=== PATIENT | female | born 1955 | race Caucasian/White ===

== ENCOUNTER 2019-04-16 12:44 | Inpatient (IN) | payer OTHER, MEDICAID ==
[~2019-04-16] VITALS: Ht 152.4 cm; Wt 55.8 kg
[2019-04-16 12:44] VITALS: BP_SYST 137
--- NOTE | 2019-04-16 13:05 | NUR ---
Patient to ER bed 5 to gown for evaluation. Side rails up.
--- NOTE | 2019-04-16 13:06 | NUR ---
Pt sent from [facility] for evaluation of rash.Pt AAOx 2. Pt h/o CVA x 3 ,HTN,DM
--- NOTE | 2019-04-16 13:10 | NUR ---
Report received from JERRY Lucia.
[2019-04-16] MEDS: valACYclovir HCL 500 MG TABLET PO ONE ×2 (13:12→13:35)
[2019-04-16] MEDS: PREDNISONE 20 MG TABLET PO ONE ×2 (13:12→13:35)
[2019-04-16] MEDS: HYDROcodone/ACETAMIN 5-325 MG TAB (NORCO/ VICODIN) PO ONE ×2 (13:13→13:34)
--- NOTE | 2019-04-16 13:20 | NUR ---
Attempted to give patient PO medications. Per patient she is able to swallow pills whole with no crushing. Patient was unable to tolerate taking pills and drinking water. MD to bedside related to choking incident after attempting to swallow 1 pill. Patient AAOx2. Patient states yes when asked if she is feeling more weak than normal, but patient states no to confusion more than normal.
--- NOTE | 2019-04-16 13:23 | NUR ---
Patient transferred from [facility] to bed. Sitting upright at 90 degree angle.
[2019-04-16] MEDS ORDERED: ACYCLOVIR IV 750 MG in D5W 100 ML IV ONE (13:30)
[2019-04-16] MEDS ORDERED: NACL 0.9% 1,000 ML IV ONE (13:30)
[2019-04-16] MEDS ORDERED: methylPREDNISolone SOD SUCC 40 MG/ML VIAL IVP ONE (13:30)
[2019-04-16 13:45] LABS: BASOPHILS % (AUTO) 0.7 % (0.0-2.0); EOSINOPHILS % (AUTO) 0.1 % (0.0-4.0); HEMATOCRIT 46.6 % (36-48); LYMPHOCYTES # (AUTO) 1.4 K/uL (1.0-5.5); LYMPHOCYTES % (AUTO) 22.6 % (20.5-51.5); MEAN CORPUSCULAR HEMOGLOBIN 32 pg (27-31); MEAN CORPUSCULAR HGB CONC 34 % (32-36); MEAN CORPUSCULAR VOLUME 92 fL (79.0-98.0); MONOCYTES # (AUTO) 0.7 K/uL (0.0-1.0); MONOCYTES % (AUTO) 10.4 % (1.7-9.3); NEUTROPHILS # (AUTO) 4.1 K/uL (1.8-7.7); NEUTROPHILS % (AUTO) 66.2 % (40.0-70.0); PLATELET COUNT (AUTO) 155 K/uL (130-430); RED BLOOD CELL COUNT(AUTO) 5.09 MIL/uL (4.2-6.2); RED CELL DISTRIBUTION WIDTH 12.9 % (9.0-15.0); WHITE BLOOD COUNT (AUTO) 6.3 K/uL (4.8-10.8)
--- NOTE | 2019-04-16 13:47 | NUR ---
Pharmacy called regarding Valtrex order for IV administration, they are to mix. Will follow up regarding. Patient started on IVF and given solumedrol for pain control. Will continue to follow up and monitor. Patient placed on bus driver/monitor.
[2019-04-16 13:55] LABS: CALCIUM 8.9 mg/dL (8.4-11.0); CREATININE 0.55 mg/dL (0.55-1.30); POTASSIUM 4.1 mmol/L (3.5-5.1)
[2019-04-16 14:12] LABS: ALBUMIN 2.9 g/dL (3.4-4.8); TOTAL BILIRUBIN 0.3 mg/dL (0.0-1.0)
[2019-04-16] MEDS ORDERED: NS 500 ML IV ONE (14:15)
[2019-04-16] MEDS ORDERED: LIP40 GT (14:51)
[2019-04-16] MEDS ORDERED: CLOP75TA32 GT (14:51)
[2019-04-16] MEDS ORDERED: METO25TA6 GT (14:51)
[2019-04-16] MEDS ORDERED: MEMA5TAB GT (14:51)
[2019-04-16] MEDS ORDERED: INSU100V42 (14:51)
[2019-04-16] MEDS ORDERED: Insulin Glargine SQ ×2 (14:51)
--- NOTE | 2019-04-16 14:51 | NUR ---
Medication reconciliation completed with information provided by [facility]. Any prior medication reconciliation on file was reviewed and corrected.
--- NOTE | 2019-04-16 14:56 | NUR ---
Orders received from Dr. Monroe, entered by RN. Bed assignment received.
--- NOTE | 2019-04-16 14:57 | NUR ---
aPatient will be admitted to care of Dr. Monroe. Admitted to MedSurg unit. Will go to room 118. Summary report printed. Report will be given at bedside.
--- NOTE | 2019-04-16 15:06 | NUR ---
Patient to be admitted to room 115 r/t isolation precautions.
[2019-04-16 15:30] VITALS: BP_SYST 138
--- NOTE | 2019-04-16 15:30 | NUR ---
ADMIT NOTE Received pt from ER to the floor with a diagnosis of Shingles and dysphagia. Admission process initiated. patient oriented to pain management, safety and call light-teach back done.
--- NOTE | 2019-04-16 15:40 | NUR ---
opening note patient is resting in bed, able to state name and , daughter present, assessment completed, educated director of marketing operations light system and plan of care, patient said "okay" to me, airborne isolation precautions in place, Dr Monroe in room to assess patient, no signs of distress, no needs addressed at this time, fall/safety precautions in place.
[2019-04-16] MEDS ORDERED: HYDROcodone/ACETAMIN 5-325 MG TAB (NORCO/ VICODIN) PO PRN (16:00)
[2019-04-16] MEDS: NACL 0.9% 1,000 ML IV SCH (16:31)
--- NOTE | 2019-04-16 17:30 | NUR ---
blood sugar check and unasyn blood sugar check done and no sliding scale needed at this time, educated on medication use and side effects, patient stated "okay" to me, patient cleaned and changed after incontinence care, no other needs addressed at this time, fall/safety precautions in place.
[2019-04-16] MEDS: AMPICILLIN SODIUM/SULBACTAM NA 1.5 GM in NS 50 ML IV SCH ×2 (17:33→23:30)
--- NOTE | 2019-04-16 19:00 | NUR ---
closing note patient is resting in bed, able to state name and , airborne isolation precautions in place, no signs of distress, no needs addressed at this time, fall/safety precautions in place, IV fluids running, [facility] called and confirmed that patient got the flu vaccine on 03/31/19, will endorse report to noc shift nurse to continue with care, medications should be crushed and given with applesauce or water, pending UA/UC order with straight cath but patient has been refusing for straight cath, will ask manager shift nurse to ask patient again for this.
[2019-04-16 21:03] VITALS: BP_SYST 135
--- NOTE | 2019-04-16 22:15 | NUR ---
DIABETES BSG ACCU - CHECK 275 mg dl INSULIN COVERAGE ORDERED CONTINUE TO MONITOR .
[2019-04-16] MEDS: INSULIN GLARGINE 100 UNITS/ML 10 ML VIAL SQ SCH (22:45)
[2019-04-16] MEDS: INSULIN LISPRO SLIDING SCALE 100 UNITS/ML VIAL (humaLOG) SUBCUT PRN (22:46)
[2019-04-16] MEDS: ACYCLOVIR IV 750 MG in D5W 100 ML IV SCH (22:46)
[2019-04-16] MEDS: ATORVASTATIN 20 MG TABLET PO SCH (22:47)
[2019-04-16] MEDS: MEMANTINE HCL 5 MG TABLET PO SCH (22:47)
--- NOTE | 2019-04-17 | NUR ---
HOURLY ROUNDING PATIENT AWAKE ON AND OFF HOB ELEVATED ISOLATION PRECAUTIONS CONTINUED .
[2019-04-17 01:11] VITALS: BP_SYST 141
--- NOTE | 2019-04-17 02:25 | NUR ---
ISOLATION PRECAUTIONS AIRBORNE , PROCEDURES EXPLAINED PATIENT AWAKE FALL MEASURES IMPLEMENTED FOR SAFETY .
--- NOTE | 2019-04-17 02:28 | NUR ---
PATIENT INCONTINENT OF URINE LININ CHANGE NEEDED KEPT CLEAN ALSO DRY NEEDED & PRN .
--- NOTE | 2019-04-17 04:52 | NUR ---
Swallow/Oral Eval called Called and left a message for Azalia regarding swallow/oral eval, ordered by Dr. Monroe.
--- NOTE | 2019-04-17 06:04 | NUR ---
ZOVIRAX / UNASYN 1.5 GM IVPB ADMINISTER as ordered no adverse Reaction noted patient awake alert comfort measures implemented ISOLATION continued as ordered .
[2019-04-17] MEDS: AMPICILLIN SODIUM/SULBACTAM NA 1.5 GM in NS 50 ML IV SCH ×4 (06:27→23:52)
[2019-04-17] MEDS: ACYCLOVIR IV 750 MG in D5W 100 ML IV SCH ×3 (06:29→22:05)
[2019-04-17] MEDS: INSULIN LISPRO SLIDING SCALE 100 UNITS/ML VIAL (humaLOG) SUBCUT PRN ×3 (06:31→16:25)
--- NOTE | 2019-04-17 06:51 | NUR ---
Nutrition Update Guicho Scale 17 noted. Pt admitted for Shingles and Dysphagia Diet: Pureed BMI: 24.2 kg/m2 RD to follow per nutrition care standards.
[2019-04-17 07:51] VITALS: BP_SYST 152
--- NOTE | 2019-04-17 07:53 | NUR ---
AM rounds: Oriented x3. Denies any pain. Incontinent of bowel. Left ear and chin with redness and rashes from shingles. Maintained on Airborne isolation. Call light within raech. IV fluids of NS at 50 cc/hr on the right wrist gauge 20 intact and patent. Safety precautions in place, call light within reach.
[2019-04-17 08:18] LABS: BASOPHILS % (AUTO) 0.4 % (0.0-2.0); EOSINOPHILS % (AUTO) 0.1 % (0.0-4.0); HEMATOCRIT 45.5 % (36-48); HEMOGLOBIN 15.6 g/dL (12.0-16.0); LYMPHOCYTES # (AUTO) 2.2 K/uL (1.0-5.5); LYMPHOCYTES % (AUTO) 33.1 % (20.5-51.5); MEAN CORPUSCULAR HEMOGLOBIN 31 pg (27-31); MEAN CORPUSCULAR HGB CONC 34 % (32-36); MEAN CORPUSCULAR VOLUME 92 fL (79.0-98.0); MONOCYTES % (AUTO) 14.2 % (1.7-9.3); NEUTROPHILS # (AUTO) 3.5 K/uL (1.8-7.7); NEUTROPHILS % (AUTO) 52.2 % (40.0-70.0); PLATELET COUNT (AUTO) 166 K/uL (130-430); RED BLOOD CELL COUNT(AUTO) 4.95 MIL/uL (4.2-6.2); RED CELL DISTRIBUTION WIDTH 12.8 % (9.0-15.0); WHITE BLOOD COUNT (AUTO) 6.8 K/uL (4.8-10.8)
[2019-04-17] MEDS: MEMANTINE HCL 5 MG TABLET PO SCH ×2 (08:49→20:19)
[2019-04-17] MEDS: INSULIN GLARGINE 100 UNITS/ML 10 ML VIAL SQ SCH ×2 (08:49→20:34)
[2019-04-17] MEDS: CLOPIDOGREL BISULFATE 75 MG TABLET PO SCH (08:49)
[2019-04-17] MEDS: METOPROLOL TARTRATE 25 MG TABLET PO SCH (08:50)
[2019-04-17 08:52] LABS: CALCIUM 8.8 mg/dL (8.4-11.0); CREATININE 0.63 mg/dL (0.55-1.30); POTASSIUM 4.2 mmol/L (3.5-5.1)
[2019-04-17] MEDS: NACL 0.9% 1,000 ML IV SCH (11:12)
--- NOTE | 2019-04-17 11:20 | NUR ---
WOUND EVALUATION: Late note for 1120 secondary to patient care. Wound Consult received from Dr. Monroe. Thank you, Dr. Monroe, for the consult. Patient received in a [place] Bed with an Isoflex ZEB mattress, awake, alert, confused. Patient is unable to turn in bed independently. Guicho Score is a 15. Past Medical History: CVA, Dementia, history of multiple strokes, bedbound, Diabetes Mellitus, Hypertension, Hyperlipidemia. Recent Labs: WBC 6.8, RBC 4.95, hemoglobin 15.6, hematocrit 45.5, glucose 187, POC glucose 364, alkaline phosphatase 117, albumin 2.9. Microbiology: Blood culture results 2 in progress. MRSA screen results in progress. Intrinsic factors that delay wound healing: Diabetes Mellitus, Hypoalbuminemia. Extrinsic factors that delay wound healing: Decreased mobility. Wound Assessment: 1. Left Chin: Shingles lesion, present on admission. Site has 100% yellow crusty tissue. No odor, no drainage. Periwound intact. Lesion measures 0.6 cm x 0.5 cm. Recommend: Cleanse wound with normal saline. Apply SurePrep to oriana-wound. Cover with non-adhesive foam dressing, cut to size, then secure with transparent dressing (use same dressing as in wounds 2 and 3). Perform wound care daily, and as needed for dressing soiling or dislodgement. 2. Left Chin, inferior to wound 1: Shingles lesion, present on admission. Site has 90% yellow crusty tissue, 10% red tissue. No odor, no drainage. Periwound intact. Lesion measures 0.5 cm x 0.8 cm. 3. Left Chin, inferior to wound 2: Shingles lesion, present on admission. Site has 100% yellow crusty tissue. No odor, no drainage. Periwound intact. Lesion measures 0.7 cm x 1.5 cm. Recommend: Cleanse wounds with normal saline. Apply SurePrep to oriana-wounds. Apply Hydrogel to wounds. Cover with non-adhesive foam dressing, cut to size, then secure with transparent dressing. Perform wound care daily, and as needed for dressing soiling or dislodgement. 4. Left Ear, Madison/Scaphoid Fossa Intersection: Shingles lesion, present on admission. Site has 100% yellow crusty tissue. No odor, no drainage. Periwound intact. Ear is edematous. Lesion measures 3.0 cm x 1.5 cm. 5. Left Ear, Madison/Scaphoid Fossa Intersection: Shingles lesion, present on admission. Site has 100% yellow crusty tissue. No odor, no drainage. Periwound intact. Ear is edematous. Lesion measures 3.0 cm x 1.5 cm. 6. Left Ear, Acoustic Meatus: Shingles lesion, present on admission. Site has 100% yellow crusty tissue. No odor, no drainage. Periwound intact. Ear is edematous. Lesion measures 1.0 cm x 1.2 cm. Recommend: Cleanse wounds with normal saline. Apply SurePrep to oriana-wounds. Apply Hydrogel to wounds. Cover with non-adhesive foam dressing, cut to size, then secure with transparent dressing. Secure with Kendall wrap over ear and cranial area. Perform wound care daily, and as needed for dressing soiling or dislodgement. 7. Intersect of Left Parietal/Temporal Scalp, Superior to Ear: Multiple dry scaly lesions (probable Shingles), present on admission. No odor, no drainage. Recommend: No dressing needed. Continue to monitor site every shift. 8. Sacral/Buttocks areas: Multiple areas of scar tissue from a wound of prior unknown etiology, and blanchable erythema from IAD, present on admission. Recommend: Cleanse involved areas with mild soap and water. Pat dry. Apply moisture barrier cream to involved areas. Perform site care 4 times a day, and as needed for soiling. Also recommend: Encourage and assist patient as needed with repositioning [id number] only every 2 hours with pillow support and off-load pressure areas with pillows for pressure re-distribution. Offload, elevate and float bilateral heels with pillows. Perform skin care and monitor skin integrity Q shift. Use moisture barrier cream on buttocks and other moisture susceptible areas QID and as needed for soiling. Initiate low air-loss therapy.
--- NOTE | 2019-04-17 11:20 | NUR ---
Wound care consult: Seen by CASSY JARAMILLO. Wound care treatment initiated on the left chin/neck.
[2019-04-17 12:00] VITALS: BP_SYST 146
--- NOTE | 2019-04-17 13:43 | NUR ---
S.T. SWALLOW EVAL SWALLOW EVAL COMPLETED. PT PRESENTS W/ FUNCTIONAL OROPHARYNGEAL SWALLOW FOR PUREE AND THIN/THICK LIQUIDS W/ NO S/S OF ASPIRATION. REC: CONTINUE CURRENT PUREE DIET. THIN LIQUIDS OK. CRUSH MEDS. NURSE GABRIELA NOTIFIED. G8996 CK G8997 CK G8998 CK NOMS LEVEL 4
--- NOTE | 2019-04-17 14:40 | NUR ---
MD rounds: Seen by Dr. Bains, okayed to do straight cath for UA.
[2019-04-17 17:02] VITALS: BP_SYST 134
[2019-04-17 17:17] LABS: BILIRUBIN,URINE NEGATIVE (NEGATIVE); BLOOD, URINE 1+ (NEGATIVE); CLARITY/URINE CLOUDY (CLEAR); COLOR,URINE YELLOW (YELLOW); GLUCOSE,URINE 3+ (NEGATIVE); KETONES,URINE NEGATIVE (NEGATIVE); LEUKOCYTE ESTERASE ,URINE 2+ (NEGATIVE); NITRITE, URINE NEGATIVE (NEGATIVE); PH,URINE 6.5 (5.0-8.0); PROTEIN URINE NEGATIVE (NEGATIVE)
[2019-04-17 17:24] LABS: BACTERIA,URINE MODERATE /HPF (None Seen); RBC,URINE 50-80 /HPF (0-3)
[2019-04-17 17:25] LABS: MUCUS,URINE 1+ /LPF (None Seen); YEAST,URINE Many /HPF (None Seen)
--- NOTE | 2019-04-17 18:15 | NUR ---
END OF SHIFT: Needs attended. No change in assessment. Maintained on airborne and droplet isolation for shingles. Call light within reach.
--- NOTE | 2019-04-17 19:30 | NUR ---
initial notes: pt is on bed, watching tv. no pain. no sob, not distress. ivf infusing well. on airborne isolation due to shingles. call light in reach. side rails up. low bed position and alarm.
--- NOTE | 2019-04-17 20:00 | NUR ---
sleeping, stable. no breathing problem. no pain. not distress. ivf infusing well. maintained on airborne isolation. needs attended. call light in reach. safety on. will follow-up.
[2019-04-17] MEDS: ATORVASTATIN 20 MG TABLET PO SCH (20:19)
[2019-04-17 20:21] VITALS: BP_SYST 146
--- NOTE | 2019-04-17 20:30 | NUR ---
pt is being feed by trade manager Q, tolerating well. pt is vital sign are with in normal limit. blood sugar 118.
--- NOTE | 2019-04-17 21:00 | NUR ---
pt is incontinent of urine. pt void and soiled her linen. clean pt and change linen. pt tolerate well. instructed pt to use call light to call for assistance. pt demonstrate understanding. call light is in pt hand. needs attended. c bed alarm on. side rails up.
[2019-04-17 23:53] VITALS: BP_SYST 123
--- NOTE | 2019-04-18 00:07 | NUR ---
sleeping, comfortable.stable. no breathing problem. no pain. not distress. vital sign are with in normal limit and recorded. ivf infusing well. clean pt and chux change. maintained on airborne isolation. needs attended. call light in reach. safety on. will follow-up.
--- NOTE | 2019-04-18 01:53 | NUR ---
SWALLOW EVAL: SWALLOW EVALUATION CONSULT CALLED LEFT A MESSAGE IN JAYLON'S ANSWERING MACHINE NUMBER I CALLED [phone] Addendum: 04/18/19 at 0254 by Karli Thakur OR/ SWALLOW EVAL WAS COMPLETE YESTERDAY 04/17/19
--- NOTE | 2019-04-18 02:00 | NUR ---
notes: sleeping, comfortable. no breathing problem. stable. maintained on airborne isolation. call light in reach. side rails up. low bed position. will follow-up.
--- NOTE | 2019-04-18 03:00 | NUR ---
SWALLOW EVAL CANCELLED I CALLED JAYLON AT [phone] AT [phone] SWALLOW EVAL WAS COMPLETE YESTERDAY 04/17/19
--- NOTE | 2019-04-18 04:00 | NUR ---
sleeping, comfortable. no breathing problem. stable. maintained on airborne isolation. call light in reach. side rails up. low bed position. will follow-up.
[2019-04-18] MEDS: AMPICILLIN SODIUM/SULBACTAM NA 1.5 GM in NS 50 ML IV SCH ×3 (05:35→17:04)
--- NOTE | 2019-04-18 05:47 | NUR ---
sleeping, comfortable.pt wakes up when clean, change to new chux.no pain. no sob. stable. maintained on airborne isolation. call light in reach. side rails up. low bed position. will follow-up.
[2019-04-18] MEDS: ACYCLOVIR IV 750 MG in D5W 100 ML IV SCH ×3 (06:18→21:59)
[2019-04-18] MEDS: NACL 0.9% 1,000 ML IV SCH (06:18)
[2019-04-18 06:25] VITALS: BP_SYST 123
[2019-04-18] MEDS: INSULIN LISPRO SLIDING SCALE 100 UNITS/ML VIAL (humaLOG) SUBCUT PRN ×4 (06:25→22:18)
--- NOTE | 2019-04-18 06:45 | NUR ---
closing: pt is still resting, no pain, no sob, stable. clean and dry. needs attended the whole shift, call light in reach. safety on. maintained on isolation for shingles. will give bedside report to incoming am rn.
--- NOTE | 2019-04-18 07:30 | NUR ---
AM rounds: Patient is asleep, IV fluids of NS at 50 cc/hr infusing on the right wrist gauge 20. Maintained on airborne and contact isolation for shingles. Safety precautions observed. Call light within reach.
[2019-04-18] MEDS: MEMANTINE HCL 5 MG TABLET PO SCH ×2 (08:16→21:58)
[2019-04-18] MEDS: CLOPIDOGREL BISULFATE 75 MG TABLET PO SCH (08:16)
[2019-04-18] MEDS: METOPROLOL TARTRATE 25 MG TABLET PO SCH (08:16)
[2019-04-18] MEDS: INSULIN GLARGINE 100 UNITS/ML 10 ML VIAL SQ SCH ×2 (08:19→22:19)
--- NOTE | 2019-04-18 10:30 | NUR ---
Rounds: Patient is resting. Denies pain.
[2019-04-18 11:24] VITALS: BP_SYST 168
--- NOTE | 2019-04-18 12:30 | NUR ---
Lunch: Refused lunch, only the supplement.
[2019-04-18 14:18] VITALS: BP_SYST 142
--- NOTE | 2019-04-18 15:00 | NUR ---
Rounds: Denies pain. Call light within reach.
[2019-04-18 15:29] VITALS: BP_SYST 130
--- NOTE | 2019-04-18 16:11 | NUR ---
Dietitian Recommendations * Recommend pureed, CCHO low carb-45 gm diet with nectar thick liquids, Glucerna TID, Sampson BID (820 kcal/day and 35 gm protein/day) * Encourage PO and ONS/modular intakes LP, RD Please refer to Nutrition Assessment for details. Signed: 04/18/19 at 1612 by Thania DOMINGO <Co-Signature Required> Co-Signed: 04/18/19 at [address] Addendum: 04/18/19 at 1612 by Thania DOMINGO Amended: Links added.
--- NOTE | 2019-04-18 18:47 | NUR ---
End of shift: Needs attended. No change in assessment. Maintained of airborne/contact isolation for shingles.
[2019-04-18 20:00] VITALS: BP_SYST 141
--- NOTE | 2019-04-18 20:00 | NUR ---
OPENING NOTES Received patient, eyes open, states 0/10 pain at this time. No signs of acute respiratory distress observed, HOB elevated. IVF running to Right wrist, patent, dressings c/d/i. Airborne precautions in place. Call light on, bed alarm on, bed at lowest position. Air mattress on. Will continue to monitor.
[2019-04-18] MEDS: ATORVASTATIN 20 MG TABLET PO SCH (21:58)
--- NOTE | 2019-04-18 22:00 | NUR ---
Patient provided with PO medications, patient tolerated well. Blood sugar of 160 and insulin coverage provided per protocol with Lantus as ordered. IV medication hung. Patient has supplemental ensure and juice and water. Perineal care provided. Will continue to monitor.
[2019-04-19] VITALS: BP_SYST 141
--- NOTE | 2019-04-19 00:05 | NUR ---
Patient provided with IV medication and drinks some more water. Provided patient with blankets and patient is turned. Will continue to monitor.
[2019-04-19] MEDS: AMPICILLIN SODIUM/SULBACTAM NA 1.5 GM in NS 50 ML IV SCH ×4 (00:12→17:27)
--- NOTE | 2019-04-19 02:15 | NUR ---
Patient resting in bed, eyes closed. No signs of acute respiratory distress. Safety precautions in place. Will continue to monitor.
--- NOTE | 2019-04-19 04:15 | NUR ---
Patient is resting, no signs of acute respiratory distress. Wound care provided. SCDs on. Perineal care provided. Call light within reach, bed alarm on, and bed at lowest position. Will continue to monitor.
[2019-04-19] MEDS: NACL 0.9% 1,000 ML IV SCH (05:48)
[2019-04-19] MEDS: ACYCLOVIR IV 750 MG in D5W 100 ML IV SCH ×3 (05:49→21:45)
--- NOTE | 2019-04-19 06:54 | NUR ---
SPOKE TO DR. MARTINEZ. DR. MARTINEZ SAYS TO HOLD OFF ON FLU SHOT FOR NOW. Will endorse care to oncoming shift.
--- NOTE | 2019-04-19 07:20 | NUR ---
CLOSING NOTES Patient is asleep, eyes closed. No signs of respiratory distress. IVF running, dressings c/d/i. Endorsed care to JERRY Sheridan. Bed alarm on, call light within reach, bed at lowest position. All needs met throughout shift.
--- NOTE | 2019-04-19 07:26 | NUR ---
Opening Note received bedside SBAR report from cook night RN, patient resting in bed, respirations even and unlabored on room air, no acute distress noted, patient reports pain is controlled, educated patient on use of call light and asked to call for assistance, patient verbalized understanding, call light in reach, bed in low and locked position, bed alarm on, isolation precautions in place.
[2019-04-19 08:00] VITALS: BP_SYST 115
[2019-04-19] MEDS: MEMANTINE HCL 5 MG TABLET PO SCH ×2 (08:34→21:42)
[2019-04-19] MEDS: CLOPIDOGREL BISULFATE 75 MG TABLET PO SCH (08:34)
[2019-04-19] MEDS: METOPROLOL TARTRATE 25 MG TABLET PO SCH (08:34)
[2019-04-19] MEDS: INSULIN GLARGINE 100 UNITS/ML 10 ML VIAL SQ SCH ×2 (08:37→21:52)
--- NOTE | 2019-04-19 09:57 | NUR ---
RN Rounds patient resting in bed, respirations even and unlabored on room air, no acute distress noted, patient reports pain is controlled, isolation precautions in place.
[2019-04-19] MEDS: INSULIN LISPRO SLIDING SCALE 100 UNITS/ML VIAL (humaLOG) SUBCUT PRN ×3 (11:18→21:53)
--- NOTE | 2019-04-19 12:16 | NUR ---
RN Rounds patient resting in bed, respirations even and unlabored on room air, patient denies any pain or nausea, no acute distress noted, isolation precautions in place.
[2019-04-19 12:50] VITALS: BP_SYST 119
--- NOTE | 2019-04-19 14:08 | NUR ---
Wound Care educated patient on purpose and procedure for wound care, patient verbalized understanding, wound care completed, patient tolerated well, patient denies any pain during or after wound care, see MST shift assessment for wound care.
--- NOTE | 2019-04-19 16:04 | NUR ---
RN Rounds patient resting in bed, respirations even and unlabored on room air, patient denies any pain, no acute distress noted.
[2019-04-19 16:57] VITALS: BP_SYST 138
--- NOTE | 2019-04-19 18:05 | NUR ---
RN Rounds patient sitting up in bed eating dinner with assistance, tolerating well, patient denies any nausea.
--- NOTE | 2019-04-19 19:19 | NUR ---
Closing Note bedside SBAR report given to receiving RN, patient resting in bed, respirations even and unlabored on room air, patient denies any pain, no acute distress noted, educated patient on use of bed alarm and asked to call for assistance, patient verbalized understanding, call light in reach, bed in low and locked position, bed alarm on, isolation precautions in place, care endorsed to maintenance mechanic 2nd shift RN.
--- NOTE | 2019-04-19 20:15 | NUR ---
PM SHIFT ASSESSMENT Received patient lying in bed, on room air, vital signs stable, no facial grimacing noted for pain, IV line intact and patent, and IVF infusing, patient repositioned and turned with pillows support, incontinence care provided, fall and isolation precautions maintained, will monitor.
[2019-04-19 20:30] VITALS: BP_SYST 145
[2019-04-19] MEDS: ATORVASTATIN 20 MG TABLET PO SCH (21:42)
--- NOTE | 2019-04-19 22:30 | NUR ---
RN ROUNDS Patient awake, resting quietly in bed, due medications administered, crushed and given with applesauce, due antibiotics administered, IV line to right wrist intact and patent, blood sugar check this pm of 256, covered with insulin per md order, patient repositioned and turned, airborne isolation precautions maintained, call light within patient's reach, fall and safety measures in place.
[2019-04-20] MEDS: NACL 0.9% 1,000 ML IV SCH ×2 (00:04→21:50)
[2019-04-20] MEDS: AMPICILLIN SODIUM/SULBACTAM NA 1.5 GM in NS 50 ML IV SCH ×3 (00:05→11:21)
--- NOTE | 2019-04-20 00:31 | NUR ---
RN ROUNDS Patient awake, resting quietly in bed, due antibiotic medications administered, patient repositioned and turned with pillow support, vital signs stable, airborne isolation precautions maintained, call light within patient's reach, fall and safety measures in place.
[2019-04-20 00:32] VITALS: BP_SYST 148
--- NOTE | 2019-04-20 02:15 | NUR ---
RN ROUNDS Patient resting quietly, in no distress, repositioned and turned with pillow support, IVf continue to infuse, isolation precautions maintained, call light within patient's reach, fall and safety measures in place.
--- NOTE | 2019-04-20 04:33 | NUR ---
RN ROUNDS Patient asleep, breathing is even and unlabored, repositioned and turned with pillow support, airborne isolation precautions maintained, call light within patient's reach, fall and safety measures in place.
[2019-04-20] MEDS: ACYCLOVIR IV 750 MG in D5W 100 ML IV SCH ×3 (05:17→21:49)
--- NOTE | 2019-04-20 06:20 | NUR ---
RN ROUNDS Patient awake, resting quietly in bed, due antibiotics administered, IV line to right wrist intact and patent, blood sugar check this am of 137, no insulin coverage needed, patient repositioned and turned, incontinence care provided, fall and isolation precautions maintained, call light within patient's reach, will monitor until report given to am nurse.
--- NOTE | 2019-04-20 07:19 | NUR ---
Opening Note received bedside SBAR report from occasional babysitter RN, patient resting in bed, respirations even and unlabored on room air, patient denies any pain, no acute distress noted, educated patient on use of call light and asked to call for assistance, patient verbalized understanding, call light in reach, bed in low and locked position, bed alarm on, isolation precautions in place.
[2019-04-20 08:00] VITALS: BP_SYST 149
[2019-04-20] MEDS: CLOPIDOGREL BISULFATE 75 MG TABLET PO SCH (08:25)
[2019-04-20] MEDS: MEMANTINE HCL 5 MG TABLET PO SCH ×2 (08:25→21:51)
[2019-04-20] MEDS: METOPROLOL TARTRATE 25 MG TABLET PO SCH (08:27)
[2019-04-20] MEDS: INSULIN GLARGINE 100 UNITS/ML 10 ML VIAL SQ SCH ×2 (08:28→21:57)
--- NOTE | 2019-04-20 09:40 | NUR ---
RN Rounds patient resting in bed, respirations even and unlabored on room air, patient denies any pain, no acute distress noted.
[2019-04-20] MEDS: INSULIN LISPRO SLIDING SCALE 100 UNITS/ML VIAL (humaLOG) SUBCUT PRN ×2 (11:20→17:15)
--- NOTE | 2019-04-20 11:48 | NUR ---
RN Rounds patient resting in bed, patient denies any pain, call light within reach, telephone within reach, demonstrated to patient how to answer telephone per her daughters request, patient returned demonstration.
[2019-04-20 12:45] VITALS: BP_SYST 144
--- NOTE | 2019-04-20 13:46 | NUR ---
RN Rounds patient resting in bed, patient denies any pain, IV fluid infusing well, no redness or swelling noted at IV site, no acute distress noted.
--- NOTE | 2019-04-20 15:21 | NUR ---
RN Rounds patient resting in bed, no acute distress noted, respirations even and unlabored on room air, patient denies any pain.
[2019-04-20 16:45] VITALS: BP_SYST 129
[2019-04-20] MEDS: SULBACTAM NA IV SCH (17:13)
[2019-04-20] MEDS: NS IV SCH (17:13)
[2019-04-20] MEDS: AMPICILLIN SODIUM IV SCH (17:13)
--- NOTE | 2019-04-20 17:37 | NUR ---
RN Rounds patient resting in bed, patient denies any pain, no acute distress noted, IV fluids infusing well, no redness or swelling noted at IV site.
--- NOTE | 2019-04-20 19:19 | NUR ---
Closing Note bedside SBAR report given to receiving RN, patient resting in bed, respirations even and unlabored on room air, no acute distress noted, educated patient on use of call light and asked to call for assistance, patient verbalized understanding, call light in reach, bed in low and locked position, bed alarm on, isolation precautions in place, care endorsed to mine shifter RN.
--- NOTE | 2019-04-20 19:41 | NUR ---
OPENING NOTES Pt and endorsement received from day shift nurse. Pt is resting in bed with both eyes closed, with visible chest rise and fall with non-labored breathing noted. Pt on IVF of NS at 50ml/hr and infusing well on right wrist G20. Pt moaning or grimacing noted. No signs of acute distress or SOB noted. Safety precautions in place with 3 side rails up, wheels locked, bed alarm on and in lowest level. Call light with pt. Will continue to monitor.
--- NOTE | 2019-04-20 19:50 | NUR ---
TRANSFER OF CARE Endorsed to JERRY Grover for continuity of care.
[2019-04-20 20:34] VITALS: BP_SYST 131
--- NOTE | 2019-04-20 21:00 | NUR ---
ISOLATION MEASURES INPLACE PROCEDURES EXPLAINED HISTORY OF SHINGLES & DYSPHAGIA ALSO DIABETES BSG 134 mg dl patient is a FEEDER .
[2019-04-20] MEDS: ATORVASTATIN 20 MG TABLET PO SCH (21:51)
--- NOTE | 2019-04-20 22:35 | NUR ---
HOURLY ROUNDING PATIENT AWAKE HOB ELEVATED IS VERBALLY RESPONSIVE BED ALARM ON Frequent monitor for safety FALL measures inplace .
--- NOTE | 2019-04-20 22:39 | NUR ---
ZOVIRAX 750 MG IVPB administer as ORDERED RASH ON EARS NECK also face areas noted R/T DIAGNOSIS .
[2019-04-21] MEDS: AMPICILLIN SODIUM IV SCH ×4 (00:41→17:07)
[2019-04-21] MEDS: NS IV SCH ×4 (00:41→17:07)
[2019-04-21] MEDS: SULBACTAM NA IV SCH ×4 (00:41→17:07)
[2019-04-21 01:05] VITALS: BP_SYST 141
--- NOTE | 2019-04-21 03:37 | NUR ---
HOURLY ROUNDING PATIENT RESTING SAFETY MEASURES implemented patient awake on and off FALL PRECAUTIONS FREQUENT VISUAL MONITOR BED TO LOW POSITION .
[2019-04-21] MEDS: ACYCLOVIR IV 750 MG in D5W 100 ML IV SCH ×3 (05:59→21:44)
[2019-04-21] MEDS ORDERED: DEXTROSE 50% JECT 50 ML DISP.SYRIN IVP ONE (06:15)
[2019-04-21] MEDS ORDERED: D5W 1,000 ML IV PRN (06:16)
[2019-04-21] MEDS ORDERED: DEXTROSE 50% JECT 50 ML DISP.SYRIN ONE (06:24)
--- NOTE | 2019-04-21 06:26 | NUR ---
HYPOGLYCEMIC PROTOCOL STARTED ONE - AMP OF D50 ADMINISTER FOR BSG OF 49 mg dl , PHONED PAGED DR MARILIN FULTON FOR UPDATE .
[2019-04-21] MEDS ORDERED: GLUCOSE 15 GM GEL (in 37.5 GM TUBE) PO PRN (06:30)
--- NOTE | 2019-04-21 06:47 | NUR ---
RECHECK BSG 211 mg dl CALL BACK STILL PENDING FOR MD DR GASTON FOR UPDATE .
--- NOTE | 2019-04-21 06:48 | NUR ---
PAGED PAGED LANDERSSHIN AT [phone] SPOKE WITH ARIEL.
--- NOTE | 2019-04-21 08:00 | NUR ---
Note Pt asssited in sitting up in bed and being fed her breakfast by SUMMER [employer]. Pt denies any SOB/resp distress or pain/discomfort at this time. IV in right wrist intact and patent at this time. Pt maintained with airborne precautions. Call light within reach.
[2019-04-21 08:15] VITALS: BP_SYST 151
[2019-04-21] MEDS: MEMANTINE HCL 5 MG TABLET PO SCH ×2 (08:17→21:29)
[2019-04-21] MEDS: CLOPIDOGREL BISULFATE 75 MG TABLET PO SCH (08:17)
[2019-04-21] MEDS: METOPROLOL TARTRATE 25 MG TABLET PO SCH (08:17)
[2019-04-21] MEDS: INSULIN GLARGINE 100 UNITS/ML 10 ML VIAL SQ SCH ×2 (09:13→21:32)
--- NOTE | 2019-04-21 11:20 | NUR ---
Note Pt denies any needs or pain/SOB at this time. IVF's and IVPB infusing well at this time through right wrist IV site. Call light within reach.
[2019-04-21 11:25] VITALS: BP_SYST 156
[2019-04-21] MEDS: INSULIN LISPRO SLIDING SCALE 100 UNITS/ML VIAL (humaLOG) SUBCUT PRN ×2 (11:36→21:36)
--- NOTE | 2019-04-21 13:40 | NUR ---
Note Pt resting in bed. Denies any pain/resp distress or needs at this time. Call light within reach.
[2019-04-21 15:24] VITALS: BP_SYST 160
[2019-04-21] MEDS: NACL 0.9% 1,000 ML IV SCH (17:08)
--- NOTE | 2019-04-21 18:15 | NUR ---
Note Pt has been checked on q1' and PRN all shift for needs and care. Pt was maintained with airborne isolation precautions all shift. No SOB/resp distress or pain/discomfort was noted all shift. IV in right wrist intact and patent infusing IVF's well all shift. No needs noted at this time. Call light within reach.
--- NOTE | 2019-04-21 19:35 | NUR ---
ROUNDS PATIENT RESTING COMFORTABLY IN BED, NOT IN DISTRESS, VITALS STABLE, NO PAIN AND DISCOMFORT NOTED. ASSESSMENT DONE AND DOCUMENTED. SEE FLOWSHEET. SAFETY AND FALL MEASURES IN PLACED. CALL LIGHT PLACED WITHIN REACH.
[2019-04-21 19:47] VITALS: BP_SYST 157
--- NOTE | 2019-04-21 21:10 | NUR ---
MEDICATION DUE MEDICATIONS GIVEN ORDERED, TOLERATED WELL. WILL CONTINUE TO MONITOR.
[2019-04-21] MEDS: ATORVASTATIN 20 MG TABLET PO SCH (21:29)
[2019-04-21] MEDS: METOPROLOL TARTRATE 50 MG TABLET PO SCH (21:30)
--- NOTE | 2019-04-22 00:12 | NUR ---
PATIENT RESTING: Patient resting quietly. No acute distress noted. Vital signs within normal range.
[2019-04-22] MEDS: SULBACTAM NA IV SCH ×5 (00:17→23:38)
[2019-04-22] MEDS: AMPICILLIN SODIUM IV SCH ×5 (00:17→23:38)
[2019-04-22] MEDS: NS IV SCH ×5 (00:17→23:38)
[2019-04-22 00:26] VITALS: BP_SYST 146
--- NOTE | 2019-04-22 02:13 | NUR ---
ROUNDS PATIENT ASLEEP, RESPIRATIONS EVEN AND UNLABORED, WILL CONTINUE TO MONITOR.
--- NOTE | 2019-04-22 04:13 | NUR ---
PATIENT RESTING: Patient resting quietly. No acute distress noted. Vital signs within normal range.
[2019-04-22] MEDS: ACYCLOVIR IV 750 MG in D5W 100 ML IV SCH ×3 (05:25→21:11)
--- NOTE | 2019-04-22 06:56 | NUR ---
CLOSING NOTES PATIENT AWAKE, VITALS STABLE, NO COMPLAINTS AT THIS TIME. ALL NEEDS ATTENDED TO. SAFETY AND FALL MEASURES MAINTAINED. CALL LIGHT PLACED WITHIN REACH.
[2019-04-22 08:00] VITALS: BP_SYST 147
--- NOTE | 2019-04-22 08:00 | NUR ---
INITIAL NOTE BEDSIDE REPORT RECEIVED BY OTR VAN CDL TRUCK DRIVER RN. PT RESTING IN BED, NO ACUTE DISTRESS NOTED, BREATHING EVEN AND UNLABORED. IVF INFUSING WELL. CALL LIGHT WITHIN REACH, BED IN LOW AND LOCKED POSITION WITH BED ALARM ON.
[2019-04-22] MEDS: MEMANTINE HCL 5 MG TABLET PO SCH ×2 (09:16→21:11)
[2019-04-22] MEDS: METOPROLOL TARTRATE 50 MG TABLET PO SCH ×2 (09:17→21:12)
[2019-04-22] MEDS: CLOPIDOGREL BISULFATE 75 MG TABLET PO SCH (09:17)
[2019-04-22] MEDS: INSULIN GLARGINE 100 UNITS/ML 10 ML VIAL SQ SCH ×2 (09:18→21:24)
[2019-04-22] MEDS: NACL 0.9% 1,000 ML IV SCH (09:19)
--- NOTE | 2019-04-22 10:00 | NUR ---
RN ROUNDS PT RESTING IN BED, DENIES ANY PAIN OR DISCOMFORT. ASSISTED WITH ORAL INTAKE OF WATER. PATIENT TOLERATED WELL.
[2019-04-22 11:33] VITALS: BP_SYST 146
[2019-04-22] MEDS: INSULIN LISPRO SLIDING SCALE 100 UNITS/ML VIAL (humaLOG) SUBCUT PRN ×2 (11:37→17:35)
--- NOTE | 2019-04-22 11:55 | NUR ---
RN ROUNDS PATIENT AWAKE, DENIES ANY PAIN OR DISCOMFORT, REPOSITIONED HOB FOR COMFORT.
--- NOTE | 2019-04-22 13:55 | NUR ---
RN ROUND PATIENT AWAKE. ASSISTED WITH ORAL INTAKE OF WATER AND APPLE SAUCE, PATIENT TOLERATED WELL.
[2019-04-22 15:27] VITALS: BP_SYST 128
--- NOTE | 2019-04-22 15:55 | NUR ---
RN ROUNDS PT RESTING, NO ACUTE DISTRESS NOTED, BREATHING EVEN AND UNLABORED.
--- NOTE | 2019-04-22 16:28 | NUR ---
Case mgt: Reviewed case for LOS--pt remains in droplet isolation for shingles--pt resides at [facility] long-term--will f/u for dc planning back to [place]--JOHN EDWARDS Addendum: 04/22/19 at 1630 by Tiara Corona RN Daniel referral to [facility]
--- NOTE | 2019-04-22 16:38 | NUR ---
[facility] REPORT GIVEN TO JERRY MCKINLEY FROM [facility]. JERRY INFORMED PATIENT WILL BE PICKED UP BY [facility] AT 1800. Addendum: 04/22/19 at 1818 by Eve Moreno RN DISREGARD, WRONG PT ENTRY
--- NOTE | 2019-04-22 17:55 | NUR ---
RN ROUNDS PT INCONTINENT OF URINE. CHANGED PATIENT, REPOSITIONED FOR COMFORT. PT TOLERATED WELL.
--- NOTE | 2019-04-22 18:09 | NUR ---
[facility] SPOKE WITH JERRY MCKINLEY. INFORMED RN THAT PATIENT DOLLY WAS DISCHARGED AND AMBULANCE MIDDLE STITCHER TIME HAS MOVED TO 1899. Addendum: 04/22/19 at 1818 by Eve Moreno RN DISREGARD, WRONG PT ENTRY
--- NOTE | 2019-04-22 19:28 | NUR ---
CLOSING NOTE BEDSIDE SBAR REPORT GIVEN TO RECEIVING RN. PT RESTING IN BED. NO ACUTE DISTRESS NOTED. BREATHING EVEN AND UNLABORED. IVF INFUSING WELL. CALL LIGHT WITHIN REACH, BED IN LOW AND LOCKED POSITION WITH BED ALARM ON. AIRBORNE PRECAUTIONS IN PLACE. PT CARE ENDORSED TO C CONSULTANT RN.
--- NOTE | 2019-04-22 19:35 | NUR ---
ROUNDS PATIENT RESTING COMFORTABLY IN BED, NOT IN DISTRESS, VITALS STABLE, NO PAIN AND DISCOMFORT NOTED. ASSESSMENT DONE AND DOCUMENTED. SEE FLOWSHEET. NEEDS ATTENDED TO. SAFETY AND FALL MEASURES IN PLACED. BED IN LOW AND LOCKED POSITION. CALL LIGHT PLACED WITHIN REACH.
[2019-04-22] MEDS: ATORVASTATIN 20 MG TABLET PO SCH (21:11)
--- NOTE | 2019-04-22 21:14 | NUR ---
MEDICATIONS DUE MEDICATIONS GIVEN SCHEDULED, TOLERATED WELL. WILL CONTINUE TO MONITOR.
--- NOTE | 2019-04-23 00:13 | NUR ---
PATIENT RESTING: Patient resting quietly. No acute distress noted. Vital signs within normal range.
--- NOTE | 2019-04-23 02:13 | NUR ---
ROUNDS PATIENT ASLEEP, NO SIGNS OF ANY PAIN AND DISCOMFORT NOTED, WILL CONTINUE TO MONITOR.
[2019-04-23 03:34] VITALS: BP_SYST 138
--- NOTE | 2019-04-23 04:16 | NUR ---
PATIENT RESTING: Patient resting quietly. No acute distress noted. Vital signs within normal range.
[2019-04-23] MEDS: ACYCLOVIR IV 750 MG in D5W 100 ML IV SCH (05:38)
[2019-04-23] MEDS: NS IV SCH ×4 (06:36→23:26)
[2019-04-23] MEDS: SULBACTAM NA IV SCH ×4 (06:36→23:26)
[2019-04-23] MEDS: AMPICILLIN SODIUM IV SCH ×4 (06:36→23:26)
--- NOTE | 2019-04-23 06:45 | NUR ---
CLOSING NOTES PATIENT AWAKE, VITALS STABLE, NO PAIN AT THIS TIME. ACCU CHECK DONE, BLOOD SUGAR 113, NO INSULIN COVERAGE. ALL NEEDS ATTENDED TO. WILL ENDORSE TO INCOMING SHIFT NURSE.
[2019-04-23 08:00] VITALS: BP_SYST 154
--- NOTE | 2019-04-23 08:00 | NUR ---
RN OPENING NOTE patient is resting in bed. open eyes but non verbal. patient was assessed, vital signs are stable.. IVF is running as prescribed, will continue to monitor and will pass the med , bed at low position and call light within reach bed alarm is on
[2019-04-23] MEDS: INSULIN GLARGINE 100 UNITS/ML 10 ML VIAL SQ SCH ×2 (09:30→22:32)
[2019-04-23] MEDS: CLOPIDOGREL BISULFATE 75 MG TABLET PO SCH (09:30)
[2019-04-23] MEDS: MEMANTINE HCL 5 MG TABLET PO SCH ×2 (09:30→21:34)
[2019-04-23] MEDS: METOPROLOL TARTRATE 50 MG TABLET PO SCH ×2 (09:35→21:34)
[2019-04-23] MEDS: NACL 0.9% 1,000 ML IV SCH (09:36)
--- NOTE | 2019-04-23 10:00 | NUR ---
RN NOTE PATIENT WAS REPOSITIONED AND GIVEN HER MEDICATION AND FED HER BREAKFAST
[2019-04-23 12:00] VITALS: BP_SYST 133
--- NOTE | 2019-04-23 12:00 | NUR ---
RN NOTE PATIENT WAS REPOSITIONED, BED AT LOW POSITION AND CALL LIGHT WITHIN REACH, PATIENT WAS COVERED FOR HER BLOOD SUGAR READING.
[2019-04-23] MEDS: INSULIN LISPRO SLIDING SCALE 100 UNITS/ML VIAL (humaLOG) SUBCUT PRN ×3 (13:01→22:33)
--- NOTE | 2019-04-23 14:00 | NUR ---
RN NOTE PATIENT IS RESTING IN BED, DENIES PAIN OR DISCOMFORT. WAS REPOSITIONED ,WILL CONTINUE TO MONITOR.
--- NOTE | 2019-04-23 16:00 | NUR ---
RN NOTE PATIENT WAS REPOSITIONED. PATIENT DENIES PAIN OR DISCOMFORT. WILL CONTINUE TO MONITOR.
[2019-04-23 16:56] VITALS: BP_SYST 144
--- NOTE | 2019-04-23 18:00 | NUR ---
RN CLOSING NOTE PATIENT IS RESTING IN BED, REPOSITIONED. GIVEN BLOOD SUGAR COVERAGE WITH LISPRO. WILL CONTINUE TO MONITOR AND WILL ENDORSE TO NEXT SHIFT.
--- NOTE | 2019-04-23 18:05 | NUR ---
Nutrition F/U (short-note d/t lack of time) RD reviewed pt's current EMR including diet Hx, physician notes, nursing notes, pertinent labs/meds/procedures, care trends, and care activity. Per RN, pt has been tolerating diet well, ate well at both breakfast and lunch. Current diet remains appropriate. F/U moderate risk within 3-5 days.
--- NOTE | 2019-04-23 19:35 | NUR ---
ROUNDS PATIENT RESTING COMFORTABLY IN BED, VITALS STABLE, NO PAIN AND DISCOMFORT NOTED. ASSESSMENT DONE AND DOCUMENTED. SEE FLOWSHEET. NEEDS ATTENDED TO. SAFETY AND FALL MEASURES IN PLACED. BED IN LOW AND LOCKED POSITION. CALL LIGHT PLACED WITHIN REACH.
--- NOTE | 2019-04-23 21:06 | NUR ---
MEDICATION DUE MEDICATIONS GIVEN SCHEDULED, CRUSHED WITH APPLESAUCE, TOLERATED WELL. WILL CONTINUE TO MONITOR.
[2019-04-23] MEDS: ATORVASTATIN 20 MG TABLET PO SCH (21:35)
--- NOTE | 2019-04-24 00:12 | NUR ---
PATIENT RESTING: Patient resting quietly. No acute distress noted. Vital signs within normal range.
[2019-04-24 00:34] VITALS: BP_SYST 136
--- NOTE | 2019-04-24 02:14 | NUR ---
ROUNDS PATIENT ASLEEP, RESPIRATIONS EVEN AND UNLABORED, WILL CONTINUE TO MONITOR.
[2019-04-24] MEDS: NACL 0.9% 1,000 ML IV SCH ×2 (03:45→09:34)
--- NOTE | 2019-04-24 04:15 | NUR ---
ROUNDS PATIENT ASLEEP, NO SOB NOR PAIN AND DISCOMFORT NOTED, WILL CONTINUE TO MONITOR.
[2019-04-24] MEDS: NS IV SCH ×3 (05:31→17:18)
[2019-04-24] MEDS: AMPICILLIN SODIUM IV SCH ×3 (05:31→17:18)
[2019-04-24] MEDS: SULBACTAM NA IV SCH ×3 (05:31→17:18)
--- NOTE | 2019-04-24 06:06 | NUR ---
CLOSING NOTES PATIENT AWAKE, VITALS STABLE, NO SIGNS OF ANY PAIN AND DISCOMFORT NOTED. ALL NEEDS ATTENDED TO. SAFETY MEASURES MAINTAINED. CALL LIGHT PLACED WITHIN REACH.
--- NOTE | 2019-04-24 07:55 | NUR ---
INITIAL NOTE RECEIVED PT IN BED, NO S/S OF DISTRESS OR SOB NOTED, PT HAS NO C/O PAIN AT THIS TIME, PT IN STABLE CONDITION, PT AAOX2, VERBAL, PROVIDED PT WITH REALITY ORIENTATION. IV CATHETER PATENT, RUNNING IV FLUIDS ORDERED, NO SIGNS OF INFECTION OR INFILTRATION NOTED. BED AT LOWEST POSITION, CALL LIGHT WITHIN REACH, WILL CONTINUE TO MONITOR PT FOR ANY CHANGES, FALL, AIRBORNE AND SAFETY PRECAUTIONS IN PLACE. PT IS ON AN AIR MATTRESS, PT HAS BILATERAL SCD'S IN PLACE.
[2019-04-24 08:30] VITALS: BP_SYST 124
[2019-04-24] MEDS: MEMANTINE HCL 5 MG TABLET PO SCH ×2 (09:28→20:28)
[2019-04-24] MEDS: CLOPIDOGREL BISULFATE 75 MG TABLET PO SCH (09:28)
[2019-04-24] MEDS: METOPROLOL TARTRATE 50 MG TABLET PO SCH ×2 (09:29→20:30)
[2019-04-24] MEDS: INSULIN GLARGINE 100 UNITS/ML 10 ML VIAL SQ SCH ×2 (09:31→20:33)
--- NOTE | 2019-04-24 10:20 | NUR ---
ROUNDS PT IN BED, NO S/S OF DISTRESS OR SOB NOTED, PT HAS NO C/O PAIN AT THIS TIME, PT IN STABLE CONDITION, PT RESTING COMFORTABLY, WILL CONTINUE TO MONITOR PT FOR ANY CHANGES.
[2019-04-24] MEDS: INSULIN LISPRO SLIDING SCALE 100 UNITS/ML VIAL (humaLOG) SUBCUT PRN ×2 (11:45→17:19)
--- NOTE | 2019-04-24 12:20 | NUR ---
ROUNDS PT IN BED, NO S/S OF DISTRESS OR SOB NOTED, PT HAS NO C/O PAIN AT THIS TIME, PT IN STABLE CONDITION,PT RESTING COMFORTABLY, WILL CONTINUE TO MONITOR PT FOR ANY CHANGES.
[2019-04-24 12:40] VITALS: BP_SYST 136
--- NOTE | 2019-04-24 15:38 | NUR ---
MD ROUNDS DR REZA ROUNDWESTLEY, MADE AWARE OF PATIENT'S CONDITION.
[2019-04-24 16:36] VITALS: BP_SYST 121
--- NOTE | 2019-04-24 18:34 | NUR ---
CLOSING NOTE PT IN BED, NO S/S OF DISTRESS OR SOB NOTED, PT HAS NO C/O PAIN AT THIS TIME, PT IN STABLE CONDITION, PT AAOX2, VERBAL, PROVIDED PT WITH REALITY ORIENTATION. IV CATHETER PATENT, RUNNING IV FLUIDS ORDERED, NO SIGNS OF INFECTION OR INFILTRATION NOTED. BED AT LOWEST POSITION, CALL LIGHT WITHIN REACH, WILL ENDORSE CARE OF PT TO INCOMING NURSE, FALL, AIRBORNE AND SAFETY PRECAUTIONS IN PLACE. PT IS ON AN AIR MATTRESS, PT HAS BILATERAL SCD'S IN PLACE.
--- NOTE | 2019-04-24 19:30 | NUR ---
opening note Patient resting quietly w/ eyes open. No distress, nonlabored breathing. Meal tray is at bedside, untouched. Patient reports she was not hungry. Bed is locked in lowest position, bed alarm on, IVF infusing via IV rt wrist. Call light w/in reach.
[2019-04-24 20:00] VITALS: BP_SYST 145
[2019-04-24] MEDS: ATORVASTATIN 20 MG TABLET PO SCH (20:30)
--- NOTE | 2019-04-25 00:30 | NUR ---
IV start Previous IV on right wrist was leaking and no longer patent. It was removed; catheter tip visualized intact and no active bleeding. Started new IV on right hand, #22 gauge. Patient tolerated. Resumed IVF fluids as ordered and administered due antibiotic.
[2019-04-25] MEDS: NS IV SCH ×4 (01:15→17:10)
[2019-04-25] MEDS: AMPICILLIN SODIUM IV SCH ×4 (01:15→17:10)
[2019-04-25] MEDS: SULBACTAM NA IV SCH ×4 (01:15→17:10)
[2019-04-25 02:45] VITALS: BP_SYST 95
[2019-04-25] MEDS: DEXTROSE 50% JECT 50 ML DISP.SYRIN IVP PRN (06:17)
--- NOTE | 2019-04-25 06:17 | NUR ---
Fingerstick Blood GT - low Fingerstick BGT done and result of 31 obtained. Administered 50% Dextrose IVP as ordered for low glucose. Will re-check FBGT. Presently patient is awake, alert and responding.
--- NOTE | 2019-04-25 06:35 | NUR ---
Re check FSBG Fingerstick BGT done, with result of 195.
--- NOTE | 2019-04-25 07:00 | NUR ---
IVF fluids Hung new bag of IVF fluids, infusing as ordered at 50ml/hr. Infusing well and patient tolerating.
[2019-04-25] MEDS: NACL 0.9% 1,000 ML IV SCH (07:02)
[2019-04-25 08:30] VITALS: BP_SYST 102
[2019-04-25] MEDS: METOPROLOL TARTRATE 50 MG TABLET PO SCH ×2 (09:00→21:27)
[2019-04-25] MEDS: MEMANTINE HCL 5 MG TABLET PO SCH ×2 (09:09→21:26)
[2019-04-25] MEDS: CLOPIDOGREL BISULFATE 75 MG TABLET PO SCH (09:09)
[2019-04-25] MEDS: INSULIN GLARGINE 100 UNITS/ML 10 ML VIAL SQ SCH ×2 (09:15→21:34)
[2019-04-25] MEDS: INSULIN LISPRO SLIDING SCALE 100 UNITS/ML VIAL (humaLOG) SUBCUT PRN ×3 (11:54→21:36)
[2019-04-25 12:31] VITALS: BP_SYST 103
[2019-04-25 16:07] VITALS: BP_SYST 110
--- NOTE | 2019-04-25 19:47 | NUR ---
opening note Received patient awake, resting in bed w/ eyes open. No distress, nonlabored breathing. IVF infusing at 50 ml/hr via IV rt hand. Bed is locked in lowest position, bed alarm on, and call light w/in reach.
[2019-04-25 20:00] VITALS: BP_SYST 131
[2019-04-25] MEDS: ATORVASTATIN 20 MG TABLET PO SCH (21:26)
--- NOTE | 2019-04-25 21:27 | NUR ---
Medications Due medications given crushed and mixed with applesauce. Patient cooperative and swallowed without difficulty. Fingerstick blood glucose done w/ result of 263 mg/dL. Scheduled lantus and humalog coverage was administered as ordered.
[2019-04-26 00:29] VITALS: BP_SYST 137
[2019-04-26] MEDS: NS IV SCH ×4 (00:49→17:59)
[2019-04-26] MEDS: SULBACTAM NA IV SCH ×4 (00:49→17:59)
[2019-04-26] MEDS: AMPICILLIN SODIUM IV SCH ×4 (00:49→17:59)
--- NOTE | 2019-04-26 00:50 | NUR ---
Antibiotic Due antibiotic administered and infusing well. Patient positioned for comfort. She was offered a snack and ate 25% of sugar free pudding. Safety precautions maintained, will continue to monitor.
--- NOTE | 2019-04-26 02:30 | NUR ---
Rounds Patient resting w/eyes closed. Symmetrical rise and fall of chest, non labored breathing. IVF infusing well.
[2019-04-26] MEDS: NACL 0.9% 1,000 ML IV SCH (06:41)
--- NOTE | 2019-04-26 07:30 | NUR ---
Fingerstick BGT Fingerstick BGT done w/ result of 50, oral glucose 15gm given. Reassessed and BG increased to 91. Endorsed report.
--- NOTE | 2019-04-26 07:50 | NUR ---
OPENING NOTE RECEIVED PATIENT AWAKE IN BED. STABLE. NO S/SX PAIN. NO ACUTE DISTRESS. NO SOB. RESPIRATION EVEN AND UNLABORED. SKIN WARM AND DRY TO TOUCH. IV INTACT AND PATENT; ANDIE IVF. BED IN LOW AND LOCKED POSITION. SIDERAIL UP X3. CONTINUE ON ISOLATION PRECAUTIONS FOR SHINGLES. ALL NEEDS MET. CALL LIGHT IN REACH. CONT TO MONITOR
[2019-04-26 08:00] VITALS: BP_SYST 115
--- NOTE | 2019-04-26 08:40 | NUR ---
NOTE ASSISTED PATIENT TO BATHROOM, ANDIE WELL. TEACHING DONE ON INCENTIVE SPIROMETER 10X/HR EVERY HR; PATIENT VERBALIZED UNDERSTANDING AND DEMONSTRATED >2000CC
[2019-04-26] MEDS: INSULIN GLARGINE 100 UNITS/ML 10 ML VIAL SQ SCH ×2 (09:00→22:14)
--- NOTE | 2019-04-26 09:20 | NUR ---
MEDS ALL DUE MEDS ADMINISTERED ORDERED. LANTUS HELD DUE TO BLOOD SUGAR 72 mg/dL. NO S/SX HYPOGLYCEMIA NOTED. TEACHING DONE ON MEDICATION AND DM. CONT TO MONITOR
[2019-04-26] MEDS: CLOPIDOGREL BISULFATE 75 MG TABLET PO SCH (09:26)
[2019-04-26] MEDS: METOPROLOL TARTRATE 50 MG TABLET PO SCH ×2 (09:26→22:07)
[2019-04-26] MEDS: MEMANTINE HCL 5 MG TABLET PO SCH ×2 (09:26→22:06)
[2019-04-26 12:00] VITALS: BP_SYST 151
--- NOTE | 2019-04-26 12:00 | NUR ---
BLOOD SUGAR AT THIS TIME IS 128 mg/dL WITH NO INSULIN COVERAGE NEEDED. CONT TO MONITOR
--- NOTE | 2019-04-26 14:00 | NUR ---
NOTE PATIENT STABLE. REPOSITIONED FOR COMFORT, ANDIE WELL. KEPT CLEAN AND DRY. ALL NEEDS MET. CONT TO MONITOR
[2019-04-26 16:00] VITALS: BP_SYST 116
--- NOTE | 2019-04-26 16:00 | NUR ---
NOTE INCONTINENCE CARE PROVIDED BY MARINA SALES AND SERVICE SUPERVISOR. PATIENT ANDIE WELL. REPOSITIONED FOR COMFORT. CONT TO MONITOR
--- NOTE | 2019-04-26 17:00 | NUR ---
ORTHOTICS ORTHO WEDGE SHOE WAS DROPPED OFF TO PATIENT. TEACHING DONE AND PATIENT WITH NO QUESTION OR CONCERN AT THIS TIME. Addendum: 04/26/19 at 1929 by Nina Walker RN DISCARD. WRONG PATIENT
[2019-04-26] MEDS: INSULIN LISPRO SLIDING SCALE 100 UNITS/ML VIAL (humaLOG) SUBCUT PRN ×2 (18:00→22:18)
--- NOTE | 2019-04-26 18:00 | NUR ---
BLOOD GLUCOSE 257 mg/dL WITH INSULIN COVERAGE ORDERED
--- NOTE | 2019-04-26 19:00 | NUR ---
CLOSING NOTE PATIENT STABLE. AWAKE IN BED. NO S/SX PAIN NOTED. NO ACUTE DISTRESS. NO SOB. RESPIRATION EVEN AND UNLABORED. SKIN WARM AND DRY TO TOUCH. IV INTACT AND PATENT. KEPT CLEAN AND DRY. BED IN LOW AND LOCKED POSITION. SIDERAIL UPX3. ALL NEEDS MET. CALL LIGHT IN REACH. CONT TO MONITOR. ENDORSED CARE TO MARTÍN.
--- NOTE | 2019-04-26 19:10 | NUR ---
OPENING NOTES RECEIVED PATIENT IN BED AWAKE. BREATHING UNLABORED ON ROOM AIR. IVF INFUSING WITH IV LINE INTACT. BED IN LOWEST LOCKED POSITION. CALL LIGHT WITH IN REACH. BED ALARM ON.
--- NOTE | 2019-04-26 19:25 | NUR ---
DINNER PATIENT HAND FEED BY INFORMATION TECHNOLOGY PROJECT MANAGER FOR DINNER. 90% OF MEAL CONSUMED PER INFORMATION TECHNOLOGY PROJECT MANAGER.
[2019-04-26 22:05] VITALS: BP_SYST 109
[2019-04-26] MEDS: ATORVASTATIN 20 MG TABLET PO SCH (22:06)
--- NOTE | 2019-04-26 22:18 | NUR ---
MED PASS PATIENT DUE MEDICATIONS GIVEN AND TOLERATED. HS SNACK PROVIDED.
--- NOTE | 2019-04-26 23:00 | NUR ---
INCONTINENCE HS CARE DONE. SPONGE BATH GIVEN. ALL LINENS CHANGED. PATIENT KEPT WARMED WITH BLANKETS.
[2019-04-27] VITALS: BP_SYST 131
[2019-04-27] MEDS: SULBACTAM NA IV SCH (00:17)
[2019-04-27] MEDS: NS IV SCH (00:17)
[2019-04-27] MEDS: AMPICILLIN SODIUM IV SCH (00:17)
--- NOTE | 2019-04-27 00:17 | NUR ---
ATB PATIENT DUE ANTIBIOTIC INFUSED. IV LINE INTACT. VITAL SIGNS STABLE.
[2019-04-27] MEDS: NACL 0.9% 1,000 ML IV SCH ×2 (00:19→21:52)
--- NOTE | 2019-04-27 02:30 | NUR ---
ROUNDS PATIENT RESTING IN BED. BREATHING UNLABORED. IVF INFUSING. CALL LIGHT WITH IN EASY REACH.
[2019-04-27] MEDS: DEXTROSE 50% JECT 50 ML DISP.SYRIN IVP PRN (06:28)
--- NOTE | 2019-04-27 06:28 | NUR ---
AM SUGAR AM FINGER STICK SUGAR 66. PATIENT AWAKE/ALERT ASYMPTOMATIC. GLUCOSE GEL NOT AVAILABLE. DEXTROSE 50% 1 AMP GIVEN.
--- NOTE | 2019-04-27 07:33 | NUR ---
CLOSING NOTES BLOOD SUGAR RECHECKED 175. PATIENT NEEDS ATTENDED. CALL LIGHT WITH IN REACH.
--- NOTE | 2019-04-27 07:35 | NUR ---
AM ROUNDS: PATIENT ON AIRBORNE PRECAUTION FOR SHINGLES.RECEIVED REPORT FROM NIGHT NURSE MARTÍN. FOAM DRESSING AT NECK,CLEAN AND DRY.NO ACUTE DISTRESS. CALL LIGHT WITH IN REACH. BED LOCKED AT LOWEST POSITION.ON MODIFIED CODE. CONDITION GUARDED.
[2019-04-27] MEDS: CLOPIDOGREL BISULFATE 75 MG TABLET PO SCH (09:01)
[2019-04-27] MEDS: MEMANTINE HCL 5 MG TABLET PO SCH ×2 (09:01→21:51)
[2019-04-27] MEDS: METOPROLOL TARTRATE 50 MG TABLET PO SCH ×2 (09:01→21:52)
[2019-04-27] MEDS: INSULIN GLARGINE 100 UNITS/ML 10 ML VIAL SQ SCH ×2 (09:07→21:55)
--- NOTE | 2019-04-27 09:10 | NUR ---
MED PASS: ASKED PATIENT AND STATED OKAY TO TAKE HER PILLS W/O CRUSH. SMALL X3 PILLS,PATIENT TOOK IT WELL,ASPIRATION PRECAUTION RENDERED. WITH NO PROBLEM.
[2019-04-27 09:16] VITALS: BP_SYST 136
[2019-04-27] MEDS: INSULIN LISPRO SLIDING SCALE 100 UNITS/ML VIAL (humaLOG) SUBCUT PRN ×3 (11:42→21:57)
--- NOTE | 2019-04-27 11:46 | NUR ---
BLOOD SUGAR: BLOOD XHOCT=505NY/DL,HUMALOG 8 UNITS SUBQ GIVEN PER SLIDING SCALE. WITH NO COMPLICATIONS.
[2019-04-27 12:40] VITALS: BP_SYST 126
--- NOTE | 2019-04-27 13:10 | NUR ---
RN ROUNDS: PATIENT ATE LUNCH WITH LENS MOLD SETTER'S ASSISTANCE.FEEDER.
--- NOTE | 2019-04-27 15:35 | NUR ---
RN ROUNDS: ON SIDE LYING RESTING.WATCHING TV. NO COMPLAINED MADE.
[2019-04-27 16:41] VITALS: BP_SYST 121
--- NOTE | 2019-04-27 17:07 | NUR ---
BLOOD SUGAR: DK=754ZB/DL, HUMALOG 4 UNITS SUBQ GIVEN PER SLIDING SCALE,WITH NO COMPLICATIONS.
--- NOTE | 2019-04-27 18:35 | NUR ---
END OF SHIFT: STILL ON AIRBORNE ISOLATION PRECAUTION RENDERED. NO ACUTE DISTRESS. CALL LIGHT WITH IN REACH. BED LOCKED AT LOWEST POSITION. CONTINUE TO MONITOR.
--- NOTE | 2019-04-27 19:35 | NUR ---
ROUNDS PATIENT RESTING COMFORTABLY IN BED, NOT IN DISTRESS, VITALS STABLE. NO PAIN AND DISCOMFORT NOTED AT THIS TIME. ASSESSMENT DONE AND DOCUMENTED. SEE FLOWSHEET. NEEDS ATTENDED TO. SAFETY AND FALL PRECAUTION MEASURES IN PLACED. BED IN LOW AND LOCKED POSITION. CALL LIGHT PLACED WITHIN REACH.
--- NOTE | 2019-04-27 21:13 | NUR ---
MEDICATION DUE MEDICATIONS GIVEN SCHEDULED, TOLERATED WELL. WILL CONTINUE TO MONITOR.
[2019-04-27] MEDS: ATORVASTATIN 20 MG TABLET PO SCH (21:51)
--- NOTE | 2019-04-27 22:30 | NUR ---
DR. ROBERTO SÁNCHEZ AND TALKED TO DR. MEJIA, MADE AWARE THAT PATIENT IS STILL HERE AND THAT HER SISTER IS NOT PICKING HER UP UP TO THIS TIME. WE MADE CALLS TO HER SISTER BUT IT GOES TO A VOICEMAIL BOX WHICH IS FULL. NO NEW ORDERS GIVEN. WILL CONTINUE TO MONITOR. Addendum: 04/27/19 at 2242 by Kiah Britton RN WRONG ENTRY, WRONG PATIENT
--- NOTE | 2019-04-28 00:12 | NUR ---
PATIENT RESTING: Patient resting quietly. No acute distress noted. Vital signs within normal range.
[2019-04-28 00:47] VITALS: BP_SYST 118
--- NOTE | 2019-04-28 02:13 | NUR ---
ROUNDS PATIENT ASLEEP, RESPIRATIONS EVEN AND UNLABORED, NO SOB NOTED. WILL CONTINUE TO MONITOR.
--- NOTE | 2019-04-28 04:17 | NUR ---
ROUNDS PATIENT ASLEEP, NO SOB NOR PAIN AND DISCOMFORT NOTED, WILL CONTINUE TO MONITOR.
--- NOTE | 2019-04-28 07:40 | NUR ---
AM ROUNDS: PATIENT AWAKE DURING ROUNDS. ON AIRBORNE PRECAUTION RENDERED.NECK DRESSING CLEAN AND DRY.CALL LIGHT WITH IN REACH. BED LOCKED AT LOWEST POSITION. NO ACUTE DISTRESS.
[2019-04-28] MEDS: METOPROLOL TARTRATE 50 MG TABLET PO SCH (08:50)
[2019-04-28] MEDS: MEMANTINE HCL 5 MG TABLET PO SCH (08:50)
[2019-04-28] MEDS: CLOPIDOGREL BISULFATE 75 MG TABLET PO SCH (08:50)
--- NOTE | 2019-04-28 08:50 | NUR ---
MED PASS: CRUSHED MEDS MIXED WITH VANILLA PUDDING GIVEN TO PATIENT AND WELL TOLERATED.
[2019-04-28] MEDS: INSULIN GLARGINE 100 UNITS/ML 10 ML VIAL SQ SCH (08:51)
[2019-04-28 08:57] VITALS: BP_SYST 142
[2019-04-28] MEDS: INSULIN LISPRO SLIDING SCALE 100 UNITS/ML VIAL (humaLOG) SUBCUT PRN ×2 (11:49→17:43)
--- NOTE | 2019-04-28 11:51 | NUR ---
BLOOD SUGAR: YQ=888XW/DL,HUMALOG 2 UNITS SUB Q GIVEN PER SLIDING SCALE. NO COMPLICATIONS NOTED.
[2019-04-28 12:00] VITALS: BP_SYST 120
--- NOTE | 2019-04-28 12:28 | NUR ---
RN ROUNDS: NOT IN ANY DISTRESS. CONTINUE TO MONITOR.
--- NOTE | 2019-04-28 14:30 | NUR ---
RN ROUNDS: RESTING. NO ACUTE DISTRESS.
--- NOTE | 2019-04-28 16:29 | NUR ---
RN ROUNDS: NO COMPLAINED MADE. STABLE.
--- NOTE | 2019-04-28 16:31 | NUR ---
Nutrition F/U RD reviewed pt's current EMR record including diet Hx, physician notes, nursing notes, pertinent labs/meds/procedures, care trends, and care activity. Current Diet Order: CCHO low carb-45 gm, puree w/ Sampson BID x10 days Subjective Info: Per RN, pt has been eating well and tolerating diet. Pt is also taking Sampson BID as CNAs have been preparing them for pt. Current % PO 69% PO intake x12 meals Estimated Energy Expenditure (kcals/day) 1020-2892 kcal/day (30-35 kcal/kg CBW for wound healing) Estimated Protein Required (g/day) 67-84 gm/day (1.2-1.5 gm/kg CBW for wound healing) Estimated Fluid Required (l/day) 1.6-1.9 L/day (1ml/kcal for CBW for wound healing) Problem/Etiology/Signs/Symptoms Suboptimal PO intake related to increased metabolic demands as evidenced by 64% PO intake and estimated nutritional requirements for wound healing. *ongoing Expected Outcomes/Goals - Monitor appetite and PO intake w/ goals of pt meeting greater than 75% of estimated nutritional needs, labs trending WNL, and skin integrity/wt maintenance. Dietitian Recommendations * Recommend continuing CCHO low carb-45 gm, puree w/ Sampson BID (ONS (Glucerna TID) and modular 840 kcal/day and 35 gm protein/day) * Encourage PO and ONS/modular intakes Follow Up Mod Risk: F/U in 3-5 days
--- NOTE | 2019-04-28 16:36 | NUR ---
Dietitian Recommendations * Recommend continuing CCHO low carb-45 gm, puree w/ Sampson BID (ONS (Glucerna TID) and modular 840 kcal/day and 35 gm protein/day) * Encourage PO and ONS/modular intakes LP, RD Please refer to Nutrition F/U for details.
[2019-04-28 16:54] VITALS: BP_SYST 145
--- NOTE | 2019-04-28 17:35 | NUR ---
BLOOD SUGAR: BLOOD SUGAR TAKEN WITH INSULIN COVERAGE GIVEN PER SLIDING SCALE. NO PROBLEM.
--- NOTE | 2019-04-28 18:22 | NUR ---
DC TRANSFER: DR REZA CAME ,WITH ORDERS DC TRANSFER BACK TO [facility] VIA S.NO NEED ISOLATION PER MD.
--- NOTE | 2019-04-28 18:24 | NUR ---
END OF SHIFT: NO ACUTE DISTRESS. WILL ENDORSED TO INCOMING NIGHT NURSE,PATIENT POSSIBLE DC TRANSFER BACK TO [facility] IN STABLE CONDITION. WILL INFORM FAMILY OF THE TRANSFER.
--- NOTE | 2019-04-28 18:33 | NUR ---
[facility] AGRICULTURAL EDUCATION PROFESSOR 2029 SPOKE WITH DEBORAH . GOING TO [facility] ROOM 48A
--- NOTE | 2019-04-28 18:58 | NUR ---
RN NOTES: CALLED PATIENT'S DAUGHTER MARI AND INFORMED HER PATIENT WILL BE TRANSFERRED TONIGHT BACK TO [facility],TROUBLE LOCATER TIME 2030 VIA BLS.
--- NOTE | 2019-04-28 19:08 | NUR ---
OPENING NOTE RECEIVED PATIENT AWAKE IN BED WATCHING TELEVISION. VITAL SIGNS STABLE. NO S/SX PAIN. NO ACUTE DISTRESS. NO SOB. RESPIRATIONS ARE EVEN AND UNLABORED. SKIN WARM AND DRY TO TOUCH. IV INTACT AND PATENT. BED IS IN LOW AND LOCKED POSITION. SIDERAILS UP X3. CALL LIGHT IN REACH. POC DISCUSSED WITH PT REGARDING TRANSFER TO [facility]. WILL CONT TO MONITOR.
[2019-04-28 19:53] VITALS: BP_SYST 120
--- NOTE | 2019-04-28 20:20 | NUR ---
REPORT GIVEN TO JERRY HILARIO AT [facility].
--- NOTE | 2019-04-28 21:04 | NUR ---
DISCHARGE DISCHARGE PACKET REVIEWED WITH PT. PT TRANSFERRED BY [facility] TO [facility]. VSS. NO S/S OF ACUTE DISTRESS.
== END 2019-04-28 21:04 | DRG 603 ==
LOC: SED 12:44 → SMU 14:52
PROVIDERS: ADMIT Internal Medicine; ATTEND Internal Medicine
DX: L03.211 Cellulitis of face (principal); L03.221 Cellulitis of neck; B02.9 Zoster without complications; E11.9 Type 2 diabetes mellitus without complications; I10 Essential (primary) hypertension; E78.5 Hyperlipidemia, unspecified; F03.90 Unspecified dementia, unspecified severity, without behavioral disturbance, psychotic disturbance, mood disturbance, and anxiety; I25.10 Atherosclerotic heart disease of native coronary artery without angina pectoris; Z88.8 Allergy status to other drugs, medicaments and biological substances; Z79.899 Other long term (current) drug therapy; Z79.4 Long term (current) use of insulin; Z86.73 Personal history of transient ischemic attack (TIA), and cerebral infarction without residual deficits; Z74.01 Bed confinement status
CPT/HCPCS: 36415; 71045; 80048; 80053; 81000-TC; 82962; 83605; 85025; 87040-TC; 87081; 87086; 92610-GN; 96365; 96375; 99285; J0133; J0295; J1030; J1815; J7030; J7060; J7512

== ENCOUNTER 2019-05-20 11:04 | Inpatient (IN) | payer OTHER, MEDICAID ==
[~2019-05-20] VITALS: Ht 167.6 cm; Wt 49.2 kg
[2019-05-20 11:04] VITALS: BP_SYST 126
[~2019-05-20 11:04] MED LIST: CLOP75TA32 GT; INSU100V42; Insulin Glargine SQ; LIP40 GT; MEMA5TAB GT; METO25TA6 GT
[2019-05-20] MEDS ORDERED: FAMO1TAB29 PO (11:32)
[2019-05-20 11:53] LABS: BASOPHILS # (AUTO) 0.1 K/uL (0.0-0.2); BASOPHILS % (AUTO) 0.5 % (0.0-2.0); HEMOGLOBIN 16.2 g/dL (12.0-16.0); LYMPHOCYTES # (AUTO) 1.9 K/uL (1.0-5.5); LYMPHOCYTES % (AUTO) 13.5 % (20.5-51.5); MEAN CORPUSCULAR HEMOGLOBIN 32 pg (27-31); MEAN CORPUSCULAR HGB CONC 34 % (32-36); MEAN CORPUSCULAR VOLUME 94 fL (79.0-98.0); MONOCYTES % (AUTO) 7.2 % (1.7-9.3); NEUTROPHILS % (AUTO) 78.8 % (40.0-70.0); PLATELET COUNT (AUTO) 216 K/uL (130-430); RED BLOOD CELL COUNT(AUTO) 5.09 MIL/uL (4.2-6.2); RED CELL DISTRIBUTION WIDTH 14.4 % (9.0-15.0); WHITE BLOOD COUNT (AUTO) 13.9 K/uL (4.8-10.8)
[2019-05-20 14:13] LABS: CALCIUM 9.2 mg/dL (8.4-11.0); CREATININE 1.11 mg/dL (0.55-1.30); POTASSIUM 3.9 mmol/L (3.5-5.1)
[2019-05-20 14:14] LABS: INR 1.2 (0.8-1.2); PROTHROMBIN TIME 11.8 SECS (9.5-12.5)
[2019-05-20 14:26] LABS: TOTAL BILIRUBIN 0.6 mg/dL (0.0-1.0)
[2019-05-20] MEDS ORDERED: KCL 20 mEq in 0.45% NS 1000 mL 1,000 ML IV SCH (15:15)
[2019-05-20 16:11] VITALS: BP_SYST 112
[2019-05-20 16:25] VITALS: BP_SYST 112
[2019-05-20] MEDS: KCL 20 mEq in 0.45% NS 1000 mL 1,000 ML IV SCH (17:23)
[2019-05-20 18:54] VITALS: BP_SYST 108
[2019-05-20 19:14] VITALS: BP_SYST 108
[2019-05-20] MEDS ORDERED: ACETAMINOPHEN 325 MG TABLET PO PRN (19:30)
[2019-05-20] MEDS ORDERED: LevALBUTEROL HCL 1.25 MG/0.5 ML *CONC.* VIAL.NEB (XOPENEX CONC.) INH PRN (19:30)
[2019-05-20] MEDS ORDERED: [UNRECOGNIZED DRUG - OTHER] SQ SCH (21:00)
[2019-05-20] MEDS: LevALBUTEROL HCL 1.25 MG/0.5 ML *CONC.* VIAL.NEB (XOPENEX CONC.) INH SCH (21:19)
[2019-05-20 21:26] VITALS: BP_SYST 108
[2019-05-20] MEDS ORDERED: MEROPENEM 500 MG in NS 50 ML IV SCH (22:00)
[2019-05-20] MEDS: MEMANTINE HCL 5 MG TABLET PO SCH (22:34)
[2019-05-20] MEDS: ATORVASTATIN 20 MG TABLET PO SCH (22:34)
[2019-05-20] MEDS: INSULIN REGULAR, HUMAN 100 UNITS/ML, 10 ML VIAL (humuLIN R) SUBCUT PRN (23:26)
[2019-05-20 23:47] LABS: BILIRUBIN,URINE NEGATIVE (NEGATIVE); BLOOD, URINE 2+ (NEGATIVE); CLARITY/URINE CLOUDY (CLEAR); COLOR,URINE YELLOW (YELLOW); GLUCOSE,URINE NEGATIVE (NEGATIVE); KETONES,URINE TRACE (NEGATIVE); LEUKOCYTE ESTERASE ,URINE 2+ (NEGATIVE); NITRITE, URINE NEGATIVE (NEGATIVE); PROTEIN URINE TRACE (NEGATIVE); UROBILINOGEN,URINE 0.2 (0.2-1.0)
[2019-05-20 23:52] LABS: BACTERIA,URINE MANY /HPF (None Seen); RBC,URINE 50-80 /HPF (0-3); WBC,URINE >100 /HPF (0-3)
[2019-05-20 23:53] LABS: MUCUS,URINE 3+ /LPF (None Seen); YEAST,URINE Moderate /HPF (None Seen)
[2019-05-21] MEDS ORDERED: INSULIN REGULAR, HUMAN 100 UNITS/ML, 10 ML VIAL SUBCUT ONE
[2019-05-21] MEDS: INSULIN GLARGINE 100 UNITS/ML 10 ML VIAL SUBCUT SCH ×3 (00:08→21:00)
[2019-05-21] MEDS: INSULIN REGULAR, HUMAN 100 UNITS/ML, 10 ML VIAL (humuLIN R) SUBCUT PRN ×3 (00:26→12:07)
[2019-05-21] MEDS ORDERED: CEFEPIME 1 GM/VIAL (MAXIPIME) ONE (01:05)
[2019-05-21 01:08] VITALS: BP_SYST 108
[2019-05-21] MEDS: CEFEPIME 1 GM in D5W 50 ML IV SCH ×3 (01:15→20:36)
[2019-05-21] MEDS: LevALBUTEROL HCL 1.25 MG/0.5 ML *CONC.* VIAL.NEB (XOPENEX CONC.) INH SCH ×4 (01:36→20:15)
[2019-05-21] MEDS: KCL 20 mEq in 0.45% NS 1000 mL 1,000 ML IV SCH ×2 (03:38→14:46)
[2019-05-21 07:16] LABS: BASOPHILS % (AUTO) 0.2 % (0.0-2.0); HEMATOCRIT 46.2 % (36-48); HEMOGLOBIN 15.4 g/dL (12.0-16.0); LYMPHOCYTES # (AUTO) 1.5 K/uL (1.0-5.5); LYMPHOCYTES % (AUTO) 9.6 % (20.5-51.5); MEAN CORPUSCULAR HEMOGLOBIN 32 pg (27-31); MEAN CORPUSCULAR HGB CONC 33 % (32-36); MEAN CORPUSCULAR VOLUME 95 fL (79.0-98.0); MONOCYTES # (AUTO) 0.9 K/uL (0.0-1.0); MONOCYTES % (AUTO) 5.7 % (1.7-9.3); NEUTROPHILS # (AUTO) 13.2 K/uL (1.8-7.7); NEUTROPHILS % (AUTO) 84.5 % (40.0-70.0); PLATELET COUNT (AUTO) 194 K/uL (130-430); RED BLOOD CELL COUNT(AUTO) 4.86 MIL/uL (4.2-6.2); RED CELL DISTRIBUTION WIDTH 14.2 % (9.0-15.0); WHITE BLOOD COUNT (AUTO) 15.7 K/uL (4.8-10.8)
[2019-05-21 07:26] LABS: CALCIUM 8.7 mg/dL (8.4-11.0); CREATININE 1.16 mg/dL (0.55-1.30); POTASSIUM 4.2 mmol/L (3.5-5.1)
[2019-05-21 08:00] VITALS: BP_SYST 115
[2019-05-21] MEDS: METOPROLOL TARTRATE 25 MG TABLET PO SCH (08:21)
[2019-05-21] MEDS: CLOPIDOGREL BISULFATE 75 MG TABLET PO SCH (08:22)
[2019-05-21] MEDS: MEMANTINE HCL 5 MG TABLET PO SCH ×2 (08:22→21:00)
[2019-05-21] MEDS ORDERED: [UNRECOGNIZED DRUG - OTHER] SQ SCH (09:00)
[2019-05-21 12:52] VITALS: BP_SYST 110
[2019-05-21 16:00] VITALS: BP_SYST 115
[2019-05-21 20:30] VITALS: BP_SYST 116
[2019-05-21 21:00] VITALS: BP_SYST 112
[2019-05-21] MEDS: ATORVASTATIN 20 MG TABLET PO SCH (21:00)
[2019-05-21] MEDS: KCL 20 mEq in D5/0.45NS 1000mL 1,000 ML IV SCH (23:39)
[2019-05-21] MEDS ORDERED: KCL 20 mEq in D5/0.45NS 1000mL 1,000 ML IV ONE (23:40)
[2019-05-22 00:20] VITALS: BP_SYST 110
[2019-05-22] MEDS: LevALBUTEROL HCL 1.25 MG/0.5 ML *CONC.* VIAL.NEB (XOPENEX CONC.) INH SCH ×4 (01:27→19:35)
[2019-05-22 04:00] VITALS: BP_SYST 125
[2019-05-22 07:30] LABS: CALCIUM 8.4 mg/dL (8.4-11.0); CREATININE 0.74 mg/dL (0.55-1.30); POTASSIUM 4.3 mmol/L (3.5-5.1)
[2019-05-22] MEDS: INSULIN REGULAR, HUMAN 100 UNITS/ML, 10 ML VIAL (humuLIN R) SUBCUT PRN ×4 (07:30→20:42)
[2019-05-22 07:31] LABS: BASOPHILS % (AUTO) 0.2 % (0.0-2.0); EOSINOPHILS % (AUTO) 0.1 % (0.0-4.0); HEMATOCRIT 40.3 % (36-48); HEMOGLOBIN 13.2 g/dL (12.0-16.0); LYMPHOCYTES # (AUTO) 1.5 K/uL (1.0-5.5); LYMPHOCYTES % (AUTO) 10.2 % (20.5-51.5); MEAN CORPUSCULAR HEMOGLOBIN 32 pg (27-31); MEAN CORPUSCULAR HGB CONC 33 % (32-36); MEAN CORPUSCULAR VOLUME 96 fL (79.0-98.0); MONOCYTES # (AUTO) 0.7 K/uL (0.0-1.0); MONOCYTES % (AUTO) 4.5 % (1.7-9.3); NEUTROPHILS # (AUTO) 12.5 K/uL (1.8-7.7); PLATELET COUNT (AUTO) 142 K/uL (130-430); RED BLOOD CELL COUNT(AUTO) 4.19 MIL/uL (4.2-6.2); RED CELL DISTRIBUTION WIDTH 14.2 % (9.0-15.0); WHITE BLOOD COUNT (AUTO) 14.6 K/uL (4.8-10.8)
[2019-05-22 07:44] VITALS: BP_SYST 110
[2019-05-22] MEDS: CLOPIDOGREL BISULFATE 75 MG TABLET PO SCH (08:10)
[2019-05-22] MEDS: METOPROLOL TARTRATE 25 MG TABLET PO SCH (08:10)
[2019-05-22] MEDS: MEMANTINE HCL 5 MG TABLET PO SCH ×2 (08:10→21:00)
[2019-05-22] MEDS: CEFEPIME 1 GM in D5W 50 ML IV SCH ×2 (08:15→20:37)
[2019-05-22] MEDS: INSULIN GLARGINE 100 UNITS/ML 10 ML VIAL SUBCUT SCH ×2 (08:16→20:45)
[2019-05-22] MEDS: KCL 20 mEq in D5/0.45NS 1000mL 1,000 ML IV SCH ×2 (08:21→17:23)
[2019-05-22 12:55] VITALS: BP_SYST 113
[2019-05-22 16:47] VITALS: BP_SYST 116
[2019-05-22 20:00] VITALS: BP_SYST 109
[2019-05-22] MEDS: ATORVASTATIN 20 MG TABLET PO SCH (21:00)
[2019-05-23 00:04] VITALS: BP_SYST 126
[2019-05-23] MEDS: LevALBUTEROL HCL 1.25 MG/0.5 ML *CONC.* VIAL.NEB (XOPENEX CONC.) INH SCH ×4 (00:46→19:40)
[2019-05-23] MEDS: KCL 20 mEq in D5/0.45NS 1000mL 1,000 ML IV SCH ×2 (04:17→14:13)
[2019-05-23] MEDS: INSULIN REGULAR, HUMAN 100 UNITS/ML, 10 ML VIAL (humuLIN R) SUBCUT PRN ×4 (06:33→20:27)
[2019-05-23 08:13] VITALS: BP_SYST 111
[2019-05-23] MEDS: MEMANTINE HCL 5 MG TABLET PO SCH ×2 (08:13→21:00)
[2019-05-23] MEDS: CLOPIDOGREL BISULFATE 75 MG TABLET PO SCH (08:13)
[2019-05-23] MEDS: METOPROLOL TARTRATE 25 MG TABLET PO SCH (08:13)
[2019-05-23] MEDS: CEFEPIME 1 GM in D5W 50 ML IV SCH ×2 (08:24→20:23)
[2019-05-23] MEDS: INSULIN GLARGINE 100 UNITS/ML 10 ML VIAL SUBCUT SCH ×2 (08:26→20:30)
[2019-05-23 11:20] VITALS: BP_SYST 111
[2019-05-23] MEDS ORDERED: BARIUM SULFATE 135 ML SUSP.RECON (E-Z-HD) PO ONE (12:38)
[2019-05-23 12:46] VITALS: BP_SYST 109
[2019-05-23 16:10] VITALS: BP_SYST 97
[2019-05-23] MEDS: ATORVASTATIN 20 MG TABLET PO SCH (21:00)
[2019-05-24] MEDS: LevALBUTEROL HCL 1.25 MG/0.5 ML *CONC.* VIAL.NEB (XOPENEX CONC.) INH SCH ×4 (01:15→19:22)
[2019-05-24 01:51] VITALS: BP_SYST 107
[2019-05-24] MEDS: KCL 20 mEq in D5/0.45NS 1000mL 1,000 ML IV SCH ×3 (02:42→21:35)
[2019-05-24] MEDS ORDERED: D5W 1,000 ML IV PRN (06:27)
[2019-05-24] MEDS ORDERED: DEXTROSE 50% JECT 50 ML DISP.SYRIN IVP PRN (06:30)
[2019-05-24] MEDS ORDERED: GLUCOSE 15 GM GEL (in 37.5 GM TUBE) PO PRN (06:30)
[2019-05-24] MEDS ORDERED: DEXTROSE 50% JECT 50 ML DISP.SYRIN ONE (06:47)
[2019-05-24 07:33] LABS: INR 1.2 (0.8-1.2); PROTHROMBIN TIME 11.8 SECS (9.5-12.5)
[2019-05-24 07:41] LABS: CALCIUM 8.1 mg/dL (8.4-11.0); CREATININE 0.57 mg/dL (0.55-1.30); PHOSPHORUS 2.2 mg/dL (2.7-4.5); POTASSIUM 3.6 mmol/L (3.5-5.1)
[2019-05-24] MEDS ORDERED: MIDAZOLAM HCL 2 MG/2 ML VIAL (VERSED) IVP ONE (08:00)
[2019-05-24] MEDS ORDERED: MEPERIDINE HCL/PF 50 MG/ML AMP IM ONE (08:00)
[2019-05-24 08:36] LABS: BASOPHILS # (AUTO) 0.1 K/uL (0.0-0.2); BASOPHILS % (AUTO) 0.4 % (0.0-2.0); EOSINOPHILS % (AUTO) 0.2 % (0.0-4.0); HEMATOCRIT 42.6 % (36-48); HEMOGLOBIN 14.1 g/dL (12.0-16.0); LYMPHOCYTES # (AUTO) 2.1 K/uL (1.0-5.5); LYMPHOCYTES % (AUTO) 15.7 % (20.5-51.5); MEAN CORPUSCULAR HEMOGLOBIN 32 pg (27-31); MEAN CORPUSCULAR HGB CONC 33 % (32-36); MEAN CORPUSCULAR VOLUME 96 fL (79.0-98.0); MONOCYTES # (AUTO) 0.6 K/uL (0.0-1.0); MONOCYTES % (AUTO) 4.7 % (1.7-9.3); NEUTROPHILS # (AUTO) 10.6 K/uL (1.8-7.7); RED BLOOD CELL COUNT(AUTO) 4.43 MIL/uL (4.2-6.2); RED CELL DISTRIBUTION WIDTH 14.3 % (9.0-15.0); WHITE BLOOD COUNT (AUTO) 13.5 K/uL (4.8-10.8)
[2019-05-24 08:42] LABS: PLATELET COUNT (AUTO) 101 K/uL (130-430)
[2019-05-24] MEDS: METOPROLOL TARTRATE 25 MG TABLET PO SCH (09:00)
[2019-05-24] MEDS: INSULIN GLARGINE 100 UNITS/ML 10 ML VIAL SUBCUT SCH ×2 (09:00→21:39)
[2019-05-24] MEDS: MEMANTINE HCL 5 MG TABLET PO SCH ×2 (09:00→21:35)
[2019-05-24] MEDS: CLOPIDOGREL BISULFATE 75 MG TABLET PO SCH (09:00)
[2019-05-24 09:06] VITALS: BP_SYST 103
[2019-05-24] MEDS: CEFEPIME 1 GM in D5W 50 ML IV SCH ×2 (09:08→21:35)
[2019-05-24] MEDS ORDERED: MIDAZOLAM HCL 5 MG/5 ML VIAL ONE (11:18)
[2019-05-24] MEDS ORDERED: MEPERIDINE HCL/PF 25 MG/ML DISP.SYRIN ONE ×3 (11:19)
[2019-05-24] MEDS ORDERED: SIMETHICONE 40 MG/0.6 ML ML ONE (11:20)
[2019-05-24] MEDS: INSULIN REGULAR, HUMAN 100 UNITS/ML, 10 ML VIAL (humuLIN R) SUBCUT PRN (11:44)
[2019-05-24 12:00] VITALS: BP_SYST 112
[2019-05-24 16:30] VITALS: BP_SYST 108
[2019-05-24 20:00] VITALS: BP_SYST 113
[2019-05-24] MEDS: ATORVASTATIN 20 MG TABLET PO SCH (21:35)
[2019-05-25] MEDS: LevALBUTEROL HCL 1.25 MG/0.5 ML *CONC.* VIAL.NEB (XOPENEX CONC.) INH SCH ×4 (00:35→19:44)
[2019-05-25 00:38] VITALS: BP_SYST 99
[2019-05-25] MEDS: INSULIN REGULAR, HUMAN 100 UNITS/ML, 10 ML VIAL (humuLIN R) SUBCUT PRN ×3 (05:33→18:01)
[2019-05-25 07:43] LABS: BASOPHILS % (AUTO) 0.2 % (0.0-2.0); EOSINOPHILS # (AUTO) 0.2 K/uL (0.0-0.4); EOSINOPHILS % (AUTO) 2.1 % (0.0-4.0); HEMATOCRIT 32.9 % (36-48); HEMOGLOBIN 11.4 g/dL (12.0-16.0); LYMPHOCYTES # (AUTO) 1.6 K/uL (1.0-5.5); LYMPHOCYTES % (AUTO) 13.3 % (20.5-51.5); MEAN CORPUSCULAR HEMOGLOBIN 33 pg (27-31); MEAN CORPUSCULAR HGB CONC 35 % (32-36); MEAN CORPUSCULAR VOLUME 96 fL (79.0-98.0); MONOCYTES # (AUTO) 0.6 K/uL (0.0-1.0); MONOCYTES % (AUTO) 5.1 % (1.7-9.3); NEUTROPHILS # (AUTO) 9.5 K/uL (1.8-7.7); NEUTROPHILS % (AUTO) 79.3 % (40.0-70.0); PLATELET COUNT (AUTO) 86 K/uL (130-430); RED BLOOD CELL COUNT(AUTO) 3.42 MIL/uL (4.2-6.2); RED CELL DISTRIBUTION WIDTH 14.2 % (9.0-15.0)
[2019-05-25 07:46] LABS: CALCIUM 8.1 mg/dL (8.4-11.0); CREATININE 0.48 mg/dL (0.55-1.30); POTASSIUM 3.8 mmol/L (3.5-5.1)
[2019-05-25 07:52] VITALS: BP_SYST 124
[2019-05-25] MEDS: CEFEPIME 1 GM in D5W 50 ML IV SCH ×2 (09:25→21:00)
[2019-05-25] MEDS: MEMANTINE HCL 5 MG TABLET PO SCH ×2 (09:25→21:00)
[2019-05-25] MEDS: KCL 20 mEq in D5/0.45NS 1000mL 1,000 ML IV SCH ×2 (09:25→18:00)
[2019-05-25] MEDS: METOPROLOL TARTRATE 25 MG TABLET PO SCH (09:32)
[2019-05-25] MEDS: INSULIN GLARGINE 100 UNITS/ML 10 ML VIAL SUBCUT SCH ×2 (09:46→21:00)
[2019-05-25 12:30] VITALS: BP_SYST 105
[2019-05-25 16:18] VITALS: BP_SYST 112
[2019-05-25 20:00] VITALS: BP_SYST 102
[2019-05-25] MEDS: ATORVASTATIN 20 MG TABLET PO SCH (21:00)
[2019-05-26 00:26] VITALS: BP_SYST 105
[2019-05-26] MEDS: LevALBUTEROL HCL 1.25 MG/0.5 ML *CONC.* VIAL.NEB (XOPENEX CONC.) INH SCH ×3 (01:30→13:36)
[2019-05-26] MEDS: KCL 20 mEq in D5/0.45NS 1000mL 1,000 ML IV SCH ×2 (06:21→14:54)
[2019-05-26] MEDS: INSULIN REGULAR, HUMAN 100 UNITS/ML, 10 ML VIAL (humuLIN R) SUBCUT PRN ×3 (06:23→17:30)
[2019-05-26 08:00] VITALS: BP_SYST 101
[2019-05-26] MEDS ORDERED: ATORVASTATIN 20 MG TABLET GT SCH (08:00)
[2019-05-26] MEDS ORDERED: COMMUNICATION ORDER XX ONE (08:00)
[2019-05-26] MEDS ORDERED: METOPROLOL TARTRATE 25 MG TABLET GT SCH (08:01)
[2019-05-26] MEDS ORDERED: MEMANTINE HCL 5 MG TABLET GT SCH (08:01)
[2019-05-26] MEDS ORDERED: ACETAMINOPHEN 650 MG/20.3 ML UDC GT PRN (08:15)
[2019-05-26] MEDS: CEFEPIME 1 GM in D5W 50 ML IV SCH (08:57)
[2019-05-26] MEDS ORDERED: CLOPIDOGREL BISULFATE 75 MG TABLET GT SCH (09:00)
[2019-05-26] MEDS: INSULIN GLARGINE 100 UNITS/ML 10 ML VIAL SUBCUT SCH (09:00)
[2019-05-26 10:21] VITALS: BP_SYST 101
[2019-05-26 12:00] VITALS: BP_SYST 113
[2019-05-26 16:00] VITALS: BP_SYST 115
[2019-05-26 18:10] VITALS: BP_SYST 115
== END 2019-05-26 18:55 | DRG 871 ==
LOC: SED 11:04 → STU 15:07
PROVIDERS: ADMIT Family Medicine; ATTEND Family Medicine
PROC: 0DH63UZ Insertion of Feeding Device into Stomach, Percutaneous Approach (ICD-10-PCS; principal; 2019-05-24 13:00)
DX: A41.9 Sepsis, unspecified organism (principal); G93.41 Metabolic encephalopathy; S42.301A Unspecified fracture of shaft of humerus, right arm, initial encounter for closed fracture; N17.9 Acute kidney failure, unspecified; N39.0 Urinary tract infection, site not specified; E87.0 Hyperosmolality and hypernatremia; E86.0 Dehydration; R13.10 Dysphagia, unspecified; D64.9 Anemia, unspecified; M81.0 Age-related osteoporosis without current pathological fracture; E78.5 Hyperlipidemia, unspecified; I10 Essential (primary) hypertension; E11.65 Type 2 diabetes mellitus with hyperglycemia; Z88.8 Allergy status to other drugs, medicaments and biological substances; Z79.899 Other long term (current) drug therapy; Z86.73 Personal history of transient ischemic attack (TIA), and cerebral infarction without residual deficits; Z74.01 Bed confinement status; Z87.81 Personal history of (healed) traumatic fracture; Z79.4 Long term (current) use of insulin
CPT/HCPCS: 36415; 43246; 71045; 73030; 73060-TC; 74230; 80048; 80053; 81000-TC; 82550-TC; 82962; 83605; 83735-TC; 84100-TC; 84484; 85025; 85610-TC; 85730-TC; 87040-TC; 87081; 87086; 87186-TC; 92610-GN; 92611-GN; 93005; 94640; 94760; 99285; G0378; J0692; J1815; J2175; J2185; J2250; J3465; J3480; J7042; J7060; J7612

== ENCOUNTER 2019-05-28 09:52 | Inpatient (IN) | payer OTHER, MEDICAID ==
[~2019-05-28] VITALS: Ht 167.6 cm; Wt 54.4 kg
[~2019-05-28 09:52] MED LIST changes: -INSU100V42
[2019-05-28 09:56] VITALS: BP_SYST 120
[2019-05-28] MEDS ORDERED: NACL 0.9% 1,000 ML IV ONE ×2 (10:15→12:45)
[2019-05-28 11:09] LABS: HEMATOCRIT 40.7 % (36-48); RED CELL DISTRIBUTION WIDTH 14.2 % (9.0-15.0)
[2019-05-28 11:15] LABS: HEMOGLOBIN 13.6 g/dL (12.0-16.0); MEAN CORPUSCULAR HEMOGLOBIN 32 pg (27-31); MEAN CORPUSCULAR HGB CONC 34 % (32-36); MEAN CORPUSCULAR VOLUME 95 fL (79.0-98.0); PLATELET COUNT (AUTO) 206 K/uL (130-430); WHITE BLOOD COUNT (AUTO) 11.3 K/uL (4.8-10.8)
[2019-05-28 11:21] LABS: CALCIUM 8.3 mg/dL (8.4-11.0); CREATININE 0.65 mg/dL (0.55-1.30); POTASSIUM 4.5 mmol/L (3.5-5.1)
[2019-05-28 11:27] LABS: ALBUMIN 1.7 g/dL (3.4-4.8); INR 1.2 (0.8-1.2); PROTHROMBIN TIME 11.7 SECS (9.5-12.5); TOTAL BILIRUBIN 0.5 mg/dL (0.0-1.0)
[2019-05-28 11:39] LABS: BAND % (MANUAL) 28 % (0-6); BASOPHILS % (MANUAL) 0 % (0-2); EOSINOPHILS % (MANUAL) 0 % (0-7); LYMPHOCYTES % (MANUAL) 3 % (20-46); MONOCYTES % (MANUAL) 4 % (0-11)
[2019-05-28 11:58] LABS: BILIRUBIN,URINE 2+ (NEGATIVE); BLOOD, URINE 2+ (NEGATIVE); CLARITY/URINE CLEAR (CLEAR); COLOR,URINE YELLOW (YELLOW); GLUCOSE,URINE NEGATIVE (NEGATIVE); KETONES,URINE TRACE (NEGATIVE); LEUKOCYTE ESTERASE ,URINE TRACE (NEGATIVE); NITRITE, URINE POSITIVE (NEGATIVE); PROTEIN URINE 3+ (NEGATIVE)
[2019-05-28 13:12] LABS: BACTERIA,URINE MODERATE /HPF (None Seen); FINE GRANULAR CASTS,URINE 0-10 /LPF (None Seen); MUCUS,URINE 1+ /LPF (None Seen)
[2019-05-28] MEDS ORDERED: ACETAMINOPHEN CHILDREN'S 160 MG/5 ML ORAL.SUSP CUP NG ONE (16:30)
[2019-05-28 17:55] VITALS: BP_SYST 100
[2019-05-28] MEDS ORDERED: LEVALBUTEROL HCL 0.63 MG/3 ML VIAL.NEB INH PRN (18:30)
[2019-05-28 18:41] VITALS: BP_SYST 100
[2019-05-28 21:06] VITALS: BP_SYST 102
[2019-05-28] MEDS: ATORVASTATIN 20 MG TABLET GT SCH (22:26)
[2019-05-28] MEDS: MEMANTINE HCL 5 MG TABLET GT SCH (22:26)
[2019-05-28] MEDS: NACL 0.9% 1,000 ML IV SCH (23:22)
[2019-05-29 01:01] VITALS: BP_SYST 98
[2019-05-29] MEDS: NACL 0.9% 1,000 ML IV SCH ×4 (01:10→18:21)
[2019-05-29 01:33] VITALS: BP_SYST 103
[2019-05-29 07:27] LABS: HEMATOCRIT 33.2 % (36-48); HEMOGLOBIN 11.1 g/dL (12.0-16.0); MEAN CORPUSCULAR HEMOGLOBIN 32 pg (27-31); MEAN CORPUSCULAR HGB CONC 33 % (32-36); MEAN CORPUSCULAR VOLUME 96 fL (79.0-98.0); PLATELET COUNT (AUTO) 199 K/uL (130-430); RED BLOOD CELL COUNT(AUTO) 3.45 MIL/uL (4.2-6.2); RED CELL DISTRIBUTION WIDTH 14.7 % (9.0-15.0); WHITE BLOOD COUNT (AUTO) 16.5 K/uL (4.8-10.8)
[2019-05-29 07:50] LABS: CALCIUM 7.7 mg/dL (8.4-11.0); CREATININE 0.71 mg/dL (0.55-1.30); POTASSIUM 4.5 mmol/L (3.5-5.1)
[2019-05-29 08:15] VITALS: BP_SYST 116
[2019-05-29] MEDS ORDERED: cefTRIAXone 1 GM in D5W 50 ML IV SCH ×2 (09:00→11:00)
[2019-05-29] MEDS: MEMANTINE HCL 5 MG TABLET GT SCH ×2 (09:10→23:52)
[2019-05-29] MEDS: CLOPIDOGREL BISULFATE 75 MG TABLET GT SCH (09:10)
[2019-05-29] MEDS: METOPROLOL TARTRATE 25 MG TABLET GT SCH (09:10)
[2019-05-29 09:58] LABS: BAND % (MANUAL) 54 % (0-6); BASOPHILS % (MANUAL) 0 % (0-2); EOSINOPHILS % (MANUAL) 0 % (0-7); LYMPHOCYTES % (MANUAL) 1 % (20-46); MONOCYTES % (MANUAL) 3 % (0-11)
[2019-05-29] MEDS ORDERED: ACETAMINOPHEN 650 MG/20.3 ML UDC GT PRN (10:00)
[2019-05-29] MEDS ORDERED: DEXTROSE 50%-WATER 50 ML DISP.SYRIN IVP PRN (10:30)
[2019-05-29] MEDS ORDERED: D5W 1,000 ML IV PRN (10:30)
[2019-05-29] MEDS ORDERED: GLUCOSE 15 GM GEL (in 37.5 GM TUBE) PO PRN (10:30)
[2019-05-29] MEDS: PIPERACILLIN/TAZO 2.25G/DEX-IS 50 ML IV SCH ×2 (11:29→18:08)
[2019-05-29] MEDS: INSULIN REGULAR, HUMAN 100 UNITS/ML, 10 ML VIAL (humuLIN R) SUBCUT PRN ×2 (11:52→18:11)
[2019-05-29 12:00] VITALS: BP_SYST 99
[2019-05-29] MEDS: INSULIN GLARGINE 100 UNITS/ML 10 ML VIAL SUBCUT SCH (12:00)
[2019-05-29 16:00] VITALS: BP_SYST 109
[2019-05-29 19:40] VITALS: BP_SYST 101
[2019-05-29] MEDS ORDERED: METOCLOPRAMIDE HCL 10 MG/2 ML VIAL IVP ONE (19:45)
[2019-05-29] MEDS ORDERED: BALSAM PERU/CASTOR OIL 60 GM OINT...G. TP ONE (20:00)
[2019-05-29] MEDS: KCL 20 mEq in 0.45% NS 1000 mL 1,000 ML IV SCH (23:43)
[2019-05-29] MEDS: ATORVASTATIN 20 MG TABLET GT SCH (23:53)
[2019-05-30 00:20] VITALS: BP_SYST 121
[2019-05-30] MEDS: PIPERACILLIN/TAZO 2.25G/DEX-IS 50 ML IV SCH ×4 (00:26→17:28)
[2019-05-30] MEDS: METOCLOPRAMIDE HCL 10 MG/2 ML VIAL IVP SCH ×4 (00:36→18:06)
[2019-05-30] MEDS: INSULIN REGULAR, HUMAN 100 UNITS/ML, 10 ML VIAL (humuLIN R) SUBCUT PRN ×4 (00:56→18:11)
[2019-05-30] MEDS: METOPROLOL TARTRATE 25 MG TABLET GT SCH (09:00)
[2019-05-30] MEDS: CLOPIDOGREL BISULFATE 75 MG TABLET GT SCH (10:22)
[2019-05-30] MEDS: MEMANTINE HCL 5 MG TABLET GT SCH ×2 (10:22→20:50)
[2019-05-30] MEDS: KCL 20 mEq in 0.45% NS 1000 mL 1,000 ML IV SCH (10:26)
[2019-05-30] MEDS: BALSAM PERU/CASTOR OIL 60 GM OINT...G. TP SCH (10:27)
[2019-05-30 12:41] VITALS: BP_SYST 115
[2019-05-30] MEDS: INSULIN GLARGINE 100 UNITS/ML 10 ML VIAL SUBCUT SCH (13:20)
[2019-05-30 16:11] VITALS: BP_SYST 107
[2019-05-30] MEDS ORDERED: BISACODYL 10 MG/SUPPOSITORY RC ONE (17:30)
[2019-05-30] MEDS ORDERED: FLUCONAZOLE 100 mg/ NS 50 ML IV SCH (18:00)
[2019-05-30] MEDS: ATORVASTATIN 20 MG TABLET GT SCH (20:50)
[2019-05-31] MEDS: KCL 20 mEq in 0.45% NS 1000 mL 1,000 ML IV SCH ×2 (00:27→12:00)
[2019-05-31] MEDS: PIPERACILLIN/TAZO 2.25G/DEX-IS 50 ML IV SCH ×4 (00:35→17:53)
[2019-05-31] MEDS: METOCLOPRAMIDE HCL 10 MG/2 ML VIAL IVP SCH ×4 (00:37→17:53)
[2019-05-31 01:31] VITALS: BP_SYST 120
[2019-05-31 07:24] LABS: BASOPHILS % (AUTO) 0.1 % (0.0-2.0); EOSINOPHILS % (AUTO) 0.1 % (0.0-4.0); HEMATOCRIT 29.8 % (36-48); HEMOGLOBIN 10.1 g/dL (12.0-16.0); LYMPHOCYTES # (AUTO) 0.8 K/uL (1.0-5.5); LYMPHOCYTES % (AUTO) 5.7 % (20.5-51.5); MEAN CORPUSCULAR HEMOGLOBIN 32 pg (27-31); MEAN CORPUSCULAR HGB CONC 34 % (32-36); MEAN CORPUSCULAR VOLUME 94 fL (79.0-98.0); MONOCYTES # (AUTO) 0.2 K/uL (0.0-1.0); MONOCYTES % (AUTO) 1.6 % (1.7-9.3); NEUTROPHILS # (AUTO) 12.6 K/uL (1.8-7.7); NEUTROPHILS % (AUTO) 92.5 % (40.0-70.0); PLATELET COUNT (AUTO) 216 K/uL (130-430); RED BLOOD CELL COUNT(AUTO) 3.16 MIL/uL (4.2-6.2); RED CELL DISTRIBUTION WIDTH 14.2 % (9.0-15.0); WHITE BLOOD COUNT (AUTO) 13.6 K/uL (4.8-10.8)
[2019-05-31 07:32] VITALS: BP_SYST 137
[2019-05-31] MEDS: CLOPIDOGREL BISULFATE 75 MG TABLET GT SCH (08:54)
[2019-05-31] MEDS: METOPROLOL TARTRATE 25 MG TABLET GT SCH (08:54)
[2019-05-31] MEDS: INSULIN GLARGINE 100 UNITS/ML 10 ML VIAL SUBCUT SCH (08:54)
[2019-05-31] MEDS: MEMANTINE HCL 5 MG TABLET GT SCH ×2 (08:55→20:49)
[2019-05-31] MEDS: BALSAM PERU/CASTOR OIL 60 GM OINT...G. TP SCH (09:00)
[2019-05-31 11:03] VITALS: BP_SYST 137
[2019-05-31 12:00] VITALS: BP_SYST 130
[2019-05-31] MEDS: MICAFUNGIN SODIUM 100 MG in NS 100 ML IV SCH (13:40)
[2019-05-31 17:09] VITALS: BP_SYST 127
[2019-05-31] MEDS ORDERED: *TPN PER PHARMACY XX PRN (18:45)
[2019-05-31] MEDS: ATORVASTATIN 20 MG TABLET GT SCH (20:49)
[2019-06-01] MEDS: PIPERACILLIN/TAZO 2.25G/DEX-IS 50 ML IV SCH ×4 (00:29→17:11)
[2019-06-01] MEDS: METOCLOPRAMIDE HCL 10 MG/2 ML VIAL IVP SCH ×4 (00:29→17:16)
[2019-06-01 01:21] VITALS: BP_SYST 111
[2019-06-01] MEDS: KCL 20 mEq in 0.45% NS 1000 mL 1,000 ML IV SCH (05:22)
[2019-06-01 09:00] VITALS: BP_SYST 137
[2019-06-01] MEDS: CLOPIDOGREL BISULFATE 75 MG TABLET GT SCH (09:17)
[2019-06-01] MEDS: METOPROLOL TARTRATE 25 MG TABLET GT SCH (09:18)
[2019-06-01] MEDS: MEMANTINE HCL 5 MG TABLET GT SCH ×2 (09:18→22:27)
[2019-06-01] MEDS: INSULIN GLARGINE 100 UNITS/ML 10 ML VIAL SUBCUT SCH (09:24)
[2019-06-01] MEDS: BALSAM PERU/CASTOR OIL 60 GM OINT...G. TP SCH (09:30)
[2019-06-01 09:46] LABS: CALCIUM 7.3 mg/dL (8.4-11.0); CREATININE 0.37 mg/dL (0.55-1.30); PHOSPHORUS 1.8 mg/dL (2.7-4.5); TOTAL BILIRUBIN 0.4 mg/dL (0.0-1.0)
[2019-06-01 09:50] LABS: POTASSIUM 2.6 mmol/L (3.5-5.1)
[2019-06-01] MEDS ORDERED: POTASSIUM CHLORIDE 40 MEQ in NS 250 ML IV ONE (10:15)
[2019-06-01] MEDS ORDERED: POTASSIUM CHLORIDE 20 MEQ/PKT PACKET GT ONE (11:00)
[2019-06-01] MEDS: MICAFUNGIN SODIUM 100 MG in NS 100 ML IV SCH (11:29)
[2019-06-01 12:00] VITALS: BP_SYST 115
[2019-06-01] MEDS: INSULIN REGULAR, HUMAN 100 UNITS/ML, 10 ML VIAL (humuLIN R) SUBCUT PRN (17:11)
[2019-06-01 17:22] VITALS: BP_SYST 136
[2019-06-01 20:00] VITALS: BP_SYST 113
[2019-06-01] MEDS ORDERED: POTASSIUM ACETATE IV SCH ×9 (21:00)
[2019-06-01] MEDS ORDERED: [UNRECOGNIZED DRUG - OTHER] IV SCH ×9 (21:00)
[2019-06-01] MEDS ORDERED: K PHOS IV SCH ×9 (21:00)
[2019-06-01] MEDS ORDERED: FAT EMULSIONS 250 ML IV SCH (21:00)
[2019-06-01] MEDS ORDERED: TPN PERIPHERAL IV SCH ×9 (21:00)
[2019-06-01] MEDS: ATORVASTATIN 20 MG TABLET GT SCH (22:27)
[2019-06-02 00:14] VITALS: BP_SYST 96
[2019-06-02] MEDS: PIPERACILLIN/TAZO 2.25G/DEX-IS 50 ML IV SCH ×3 (01:00→12:00)
[2019-06-02] MEDS: INSULIN REGULAR, HUMAN 100 UNITS/ML, 10 ML VIAL (humuLIN R) SUBCUT PRN ×2 (06:53→13:06)
[2019-06-02] MEDS: METOCLOPRAMIDE HCL 10 MG/2 ML VIAL IVP SCH ×3 (06:57→13:07)
[2019-06-02] MEDS: METOPROLOL TARTRATE 25 MG TABLET GT SCH (08:44)
[2019-06-02] MEDS: MEMANTINE HCL 5 MG TABLET GT SCH (08:44)
[2019-06-02] MEDS: CLOPIDOGREL BISULFATE 75 MG TABLET GT SCH (08:44)
[2019-06-02] MEDS: INSULIN GLARGINE 100 UNITS/ML 10 ML VIAL SUBCUT SCH (08:49)
[2019-06-02] MEDS: KCL 20 mEq in 0.45% NS 1000 mL 1,000 ML IV SCH (08:50)
[2019-06-02] MEDS: BALSAM PERU/CASTOR OIL 60 GM OINT...G. TP SCH (08:50)
[2019-06-02 09:06] LABS: CALCIUM 7.8 mg/dL (8.4-11.0); CREATININE 0.51 mg/dL (0.55-1.30); PHOSPHORUS 2.1 mg/dL (2.7-4.5); POTASSIUM 3.3 mmol/L (3.5-5.1); TOTAL BILIRUBIN 0.4 mg/dL (0.0-1.0)
[2019-06-02 12:10] VITALS: BP_SYST 108
[2019-06-02 12:38] VITALS: BP_SYST 108
[2019-06-02] MEDS: MICAFUNGIN SODIUM 100 MG in NS 100 ML IV SCH (12:45)
[2019-06-02] MEDS ORDERED: POTASSIUM ACETATE IV SCH ×9 (21:00)
[2019-06-02] MEDS ORDERED: [UNRECOGNIZED DRUG - OTHER] IV SCH ×9 (21:00)
[2019-06-02] MEDS ORDERED: TPN PERIPHERAL IV SCH ×9 (21:00)
[2019-06-02] MEDS ORDERED: K PHOS IV SCH ×9 (21:00)
== END 2019-06-02 13:30 | DRG 871 ==
LOC: SED 09:52 → STU 16:14
PROVIDERS: ADMIT Internal Medicine; ATTEND Internal Medicine
DX: A41.9 Sepsis, unspecified organism (principal); E43 Unspecified severe protein-calorie malnutrition; G93.41 Metabolic encephalopathy; J69.0 Pneumonitis due to inhalation of food and vomit; N39.0 Urinary tract infection, site not specified; Z68.1 Body mass index [BMI] 19.9 or less, adult; K56.7 Ileus, unspecified; B49 Unspecified mycosis; E11.43 Type 2 diabetes mellitus with diabetic autonomic (poly)neuropathy; E78.5 Hyperlipidemia, unspecified; F03.90 Unspecified dementia, unspecified severity, without behavioral disturbance, psychotic disturbance, mood disturbance, and anxiety; I10 Essential (primary) hypertension; I25.10 Atherosclerotic heart disease of native coronary artery without angina pectoris; R13.10 Dysphagia, unspecified; K31.84 Gastroparesis; Z74.01 Bed confinement status; Z86.73 Personal history of transient ischemic attack (TIA), and cerebral infarction without residual deficits; Z87.440 Personal history of urinary (tract) infections; Z93.1 Gastrostomy status; Z88.8 Allergy status to other drugs, medicaments and biological substances; Z79.899 Other long term (current) drug therapy
CPT/HCPCS: 36415; 70450-TC; 71045; 74018; 80048; 80053; 81000-TC; 82962; 83605; 83735-TC; 84100-TC; 84132-TC; 84478-TC; 84484; 85007; 85025; 85027; 85610-TC; 85730-TC; 86710; 87040-TC; 87081; 87086; 93005; 94760; 95816; 99285; G0378; J0610; J0696; J1450; J1815; J2248; J2543; J2765; J3475; J3480; J7030; J7050; J7060

== ENCOUNTER 2019-06-16 15:15 | Inpatient (IN) | payer OTHER, MEDICAID ==
[~2019-06-16] VITALS: Ht 154.9 cm; Wt 78.9 kg
[2019-06-17 14:50] VITALS: BP_SYST 109
[2019-06-17] MEDS ORDERED: ACET-2165 PR ×2 (15:38)
[2019-06-17] MEDS ORDERED: MERO500V IV (15:38)
[2019-06-17] MEDS ORDERED: ALBU2.5V7 INH ×2 (15:38)
[2019-06-17] MEDS ORDERED: INSU100V9 SQ (15:42)
[2019-06-17] MEDS ORDERED: ACETAMINOPHEN 650 MG SUPP.RECT RC PRN (15:45)
[2019-06-17] MEDS ORDERED: *TPN PER PHARMACY XX PRN (15:45)
[2019-06-17] MEDS ORDERED: COMMUNICATION ORDER XX ONE (15:45)
[2019-06-17] MEDS ORDERED: ALBUTEROL SULFATE 0.083% 2.5 MG/3 ML VIAL.NEB INH PRN (15:45)
[2019-06-17 17:15] LABS: BILIRUBIN,URINE NEGATIVE (NEGATIVE); CLARITY/URINE CLEAR (CLEAR); COLOR,URINE YELLOW (YELLOW); GLUCOSE,URINE NEGATIVE (NEGATIVE); KETONES,URINE NEGATIVE (NEGATIVE); LEUKOCYTE ESTERASE ,URINE NEGATIVE (NEGATIVE); NITRITE, URINE NEGATIVE (NEGATIVE); PH,URINE 6.5 (5.0-8.0); PROTEIN URINE TRACE (NEGATIVE); UROBILINOGEN,URINE 0.2 (0.2-1.0)
[2019-06-17 17:18] LABS: BLOOD, URINE TRACE (NEGATIVE)
[2019-06-17] MEDS: SOD FERRIC GLUC COMPLEX/SUC 125 MG in NS 100 ML IV SCH (17:23)
[2019-06-17] MEDS: KCL 20 mEq in D5/0.45NS 1000mL 1,000 ML IV SCH (17:23)
[2019-06-17] MEDS: VANCOMYCIN HCL 1 GM/NS PREMIX 250 ML IV SCH (17:48)
[2019-06-17 18:19] LABS: RBC,URINE 0-3 /HPF (0-3)
[2019-06-17 18:20] LABS: BACTERIA,URINE FEW /HPF (None Seen); COARSE GRANULAR CASTS,URINE 0-10 /LPF (None Seen); HYALINE CASTS, URINE 0-10 /LPF (None Seen); MUCUS,URINE None Seen /LPF (None Seen); WBC,URINE 0-3 /HPF (0-3)
[2019-06-17 20:00] VITALS: BP_SYST 150
[2019-06-17] MEDS: METOCLOPRAMIDE HCL 10 MG/2 ML VIAL IVP SCH (22:00)
[2019-06-17] MEDS ORDERED: MEROPENEM 500 MG VIAL IV SCH (22:00)
[2019-06-17] MEDS: MEROPENEM 500 MG in NS 50 ML IV SCH (22:30)
[2019-06-17] MEDS: ALBUTEROL SULFATE 0.083% 2.5 MG/3 ML VIAL.NEB INH SCH (23:34)
[2019-06-17] MEDS: INSULIN REGULAR, HUMAN 100 UNITS/ML, 10 ML VIAL (humuLIN R) SUBCUT PRN (23:54)
[2019-06-18 00:24] VITALS: BP_SYST 138
[2019-06-18] MEDS: KCL 20 mEq in D5/0.45NS 1000mL 1,000 ML IV SCH ×3 (05:59→21:29)
[2019-06-18] MEDS: METOCLOPRAMIDE HCL 10 MG/2 ML VIAL IVP SCH ×3 (06:04→21:29)
[2019-06-18] MEDS: MEROPENEM 500 MG in NS 50 ML IV SCH ×3 (06:07→21:27)
[2019-06-18] MEDS: VANCOMYCIN HCL 1 GM/NS PREMIX 250 ML IV SCH (06:39)
[2019-06-18] MEDS: ALBUTEROL SULFATE 0.083% 2.5 MG/3 ML VIAL.NEB INH SCH ×3 (07:17→23:37)
[2019-06-18 07:31] VITALS: BP_SYST 141
[2019-06-18] MEDS: PANTOPRAZOLE SODIUM 40 MG/VIAL (PROTONIX) IVP SCH (08:28)
[2019-06-18] MEDS: INSULIN GLARGINE 100 UNITS/ML 10 ML VIAL SQ SCH (08:31)
[2019-06-18 09:05] LABS: BASOPHILS % (AUTO) 0.5 % (0.0-2.0); EOSINOPHILS % (AUTO) 0.2 % (0.0-4.0); HEMATOCRIT 31.4 % (36-48); HEMOGLOBIN 10.3 g/dL (12.0-16.0); LYMPHOCYTES # (AUTO) 2.4 K/uL (1.0-5.5); LYMPHOCYTES % (AUTO) 22.8 % (20.5-51.5); MEAN CORPUSCULAR HEMOGLOBIN 32 pg (27-31); MEAN CORPUSCULAR HGB CONC 33 % (32-36); MEAN CORPUSCULAR VOLUME 96 fL (79.0-98.0); MONOCYTES # (AUTO) 0.5 K/uL (0.0-1.0); MONOCYTES % (AUTO) 5.1 % (1.7-9.3); NEUTROPHILS # (AUTO) 7.6 K/uL (1.8-7.7); NEUTROPHILS % (AUTO) 71.4 % (40.0-70.0); PLATELET COUNT (AUTO) 475 K/uL (130-430); RED BLOOD CELL COUNT(AUTO) 3.26 MIL/uL (4.2-6.2); RED CELL DISTRIBUTION WIDTH 16.9 % (9.0-15.0); WHITE BLOOD COUNT (AUTO) 10.6 K/uL (4.8-10.8)
[2019-06-18 12:00] VITALS: BP_SYST 130
[2019-06-18 12:00] LABS: ALBUMIN 0.9 g/dL (3.4-4.8); CALCIUM 7.3 mg/dL (8.4-11.0); CREATININE 0.29 mg/dL (0.55-1.30); PHOSPHORUS 2.3 mg/dL (2.7-4.5); POTASSIUM 4.1 mmol/L (3.5-5.1); TOTAL BILIRUBIN 0.3 mg/dL (0.0-1.0)
[2019-06-18] MEDS ORDERED: DEXTROSE 50% JECT 50 ML DISP.SYRIN ONE (14:37)
[2019-06-18] MEDS ORDERED: D5W 1,000 ML IV PRN (14:45)
[2019-06-18] MEDS ORDERED: GLUCOSE 15 GM GEL (in 37.5 GM TUBE) PO PRN (14:45)
[2019-06-18] MEDS ORDERED: DEXTROSE 50%-WATER 50 ML DISP.SYRIN IVP PRN (14:45)
[2019-06-18] MEDS: SOD FERRIC GLUC COMPLEX/SUC 125 MG in NS 100 ML IV SCH (15:06)
[2019-06-18 16:30] VITALS: BP_SYST 127
[2019-06-18] MEDS: ENOXAPARIN SODIUM 40 MG/0.4 ML SYRINGE SUBCUT SCH (21:00)
[2019-06-18] MEDS: K PHOS IV SCH ×16 (21:00→21:26)
[2019-06-18] MEDS: POTASSIUM CHLORIDE IV SCH ×16 (21:00→21:26)
[2019-06-18] MEDS: FAT EMULSIONS 250 ML IV SCH ×2 (21:00→21:26)
[2019-06-18] MEDS ORDERED: KCL 20 mEq in D5/0.45NS 1000mL 1,000 ML IV SCH (21:00)
[2019-06-18] MEDS: SODIUM ACETATE IV SCH ×16 (21:00→21:26)
[2019-06-18] MEDS: TPN CENTRAL IV SCH ×16 (21:00→21:26)
[2019-06-18] MEDS: [UNRECOGNIZED DRUG - OTHER] IV SCH ×16 (21:00→21:26)
[2019-06-19] VITALS (13 sets, daily range): BP systolic 122–159
[2019-06-19 06:07] LABS: INR 1.3 (0.8-1.2); PROTHROMBIN TIME 12.6 SECS (9.5-12.5)
[2019-06-19 06:16] LABS: ALBUMIN 0.7 g/dL (3.4-4.8); CREATININE 0.21 mg/dL (0.55-1.30); PHOSPHORUS 2.5 mg/dL (2.7-4.5); POTASSIUM 3.6 mmol/L (3.5-5.1); TOTAL BILIRUBIN 0.2 mg/dL (0.0-1.0)
[2019-06-19] MEDS: MEROPENEM 500 MG in NS 50 ML IV SCH ×3 (06:24→21:55)
[2019-06-19] MEDS: METOCLOPRAMIDE HCL 10 MG/2 ML VIAL IVP SCH ×3 (06:29→21:55)
[2019-06-19] MEDS: INSULIN REGULAR, HUMAN 100 UNITS/ML, 10 ML VIAL (humuLIN R) SUBCUT PRN ×3 (06:31→21:51)
[2019-06-19] MEDS: VANCOMYCIN HCL 1 GM/NS PREMIX 250 ML IV SCH (06:56)
[2019-06-19 07:08] LABS: BASOPHILS % (AUTO) 0.4 % (0.0-2.0); EOSINOPHILS % (AUTO) 0.1 % (0.0-4.0); HEMOGLOBIN 9.2 g/dL (12.0-16.0); LYMPHOCYTES # (AUTO) 1.2 K/uL (1.0-5.5); LYMPHOCYTES % (AUTO) 17.2 % (20.5-51.5); MEAN CORPUSCULAR HEMOGLOBIN 34 pg (27-31); MEAN CORPUSCULAR HGB CONC 34 % (32-36); MEAN CORPUSCULAR VOLUME 99 fL (79.0-98.0); MONOCYTES # (AUTO) 0.4 K/uL (0.0-1.0); NEUTROPHILS # (AUTO) 5.5 K/uL (1.8-7.7); NEUTROPHILS % (AUTO) 77.3 % (40.0-70.0); PLATELET COUNT (AUTO) 427 K/uL (130-430); RED BLOOD CELL COUNT(AUTO) 2.74 MIL/uL (4.2-6.2); RED CELL DISTRIBUTION WIDTH 17.3 % (9.0-15.0)
[2019-06-19 07:32] LABS: WHITE BLOOD COUNT (AUTO) 7.1 K/uL (4.8-10.8)
[2019-06-19] MEDS: PANTOPRAZOLE SODIUM 40 MG/VIAL (PROTONIX) IVP SCH (09:49)
[2019-06-19] MEDS: INSULIN GLARGINE 100 UNITS/ML 10 ML VIAL SQ SCH (09:51)
[2019-06-19] MEDS ORDERED: LR 1,000 ML IV ONE (11:30)
[2019-06-19] MEDS ORDERED: IOHEXOL 50 ML IV ONE (12:34)
[2019-06-19] MEDS ORDERED: PROPOFOL 200MG/ 20ML VIAL (DIPRIVAN) IV ONE (12:45)
[2019-06-19] MEDS ORDERED: SEVOFLURANE 15 MIN GAS INH ONE (12:45)
[2019-06-19] MEDS ORDERED: ROCURONIUM BROMIDE 10 MG/ML (ZEMURON) IV ONE (12:45)
[2019-06-19] MEDS ORDERED: LR 1,000 ML IV.SOLN IV ONE (12:45)
[2019-06-19] MEDS ORDERED: NS IRRIG SOLN 1000 ML IR ONE (12:45)
[2019-06-19] MEDS ORDERED: IOPAMIDOL 50 ML VIAL IV ONE (12:45)
[2019-06-19] MEDS ORDERED: NS 1000 ML IV.SOLN IV ONE (12:45)
[2019-06-19] MEDS ORDERED: ONDANSETRON HCL 4 MG/2 ML VIAL IVP ONE (12:45)
[2019-06-19] MEDS ORDERED: fentaNYL CITRATE 250 MCG/5 ML AMP IV ONE (12:45)
[2019-06-19] MEDS ORDERED: LR 1,000 ML IV SCH (13:31)
[2019-06-19] MEDS ORDERED: MORPHINE 4 MG/ML INJ. SYRINGE IVP PRN ×3 (13:45)
[2019-06-19] MEDS ORDERED: ONDANSETRON HCL 4 MG/2 ML VIAL IVP PRN (13:45)
[2019-06-19] MEDS: SOD FERRIC GLUC COMPLEX/SUC 125 MG in NS 100 ML IV SCH (16:03)
[2019-06-19] MEDS ORDERED: LORazepam 2 MG/ML VIAL IVP PRN (17:30)
[2019-06-19] MEDS ORDERED: MORPHINE 2 MG/ML INJ. SYRINGE IVP PRN (17:30)
[2019-06-19] MEDS ORDERED: K PHOS IV SCH ×17 (21:00)
[2019-06-19] MEDS ORDERED: SODIUM ACETATE IV SCH ×17 (21:00)
[2019-06-19] MEDS ORDERED: [UNRECOGNIZED DRUG - OTHER] IV SCH ×17 (21:00)
[2019-06-19] MEDS ORDERED: POTASSIUM CHLORIDE IV SCH ×17 (21:00)
[2019-06-19] MEDS ORDERED: TPN CENTRAL IV SCH ×17 (21:00)
[2019-06-19] MEDS: FAT EMULSIONS 250 ML IV SCH (21:48)
[2019-06-19] MEDS: ENOXAPARIN SODIUM 40 MG/0.4 ML SYRINGE SUBCUT SCH (21:53)
[2019-06-19] MEDS: ALBUTEROL SULFATE 0.083% 2.5 MG/3 ML VIAL.NEB INH SCH (23:33)
[2019-06-20] VITALS (27 sets, daily range): BP systolic 117–152
[2019-06-20] MEDS: MEROPENEM 500 MG in NS 50 ML IV SCH ×3 (05:55→23:15)
[2019-06-20] MEDS: VANCOMYCIN HCL 1 GM/NS PREMIX 250 ML IV SCH (06:13)
[2019-06-20] MEDS: METOCLOPRAMIDE HCL 10 MG/2 ML VIAL IVP SCH ×3 (06:13→22:32)
[2019-06-20 06:26] LABS: BASOPHILS % (AUTO) 0.4 % (0.0-2.0); EOSINOPHILS # (AUTO) 0.1 K/uL (0.0-0.4); EOSINOPHILS % (AUTO) 0.7 % (0.0-4.0); HEMATOCRIT 26.2 % (36-48); HEMOGLOBIN 8.9 g/dL (12.0-16.0); LYMPHOCYTES # (AUTO) 1.9 K/uL (1.0-5.5); LYMPHOCYTES % (AUTO) 21.6 % (20.5-51.5); MEAN CORPUSCULAR HEMOGLOBIN 32 pg (27-31); MEAN CORPUSCULAR HGB CONC 34 % (32-36); MEAN CORPUSCULAR VOLUME 95 fL (79.0-98.0); MONOCYTES # (AUTO) 0.4 K/uL (0.0-1.0); MONOCYTES % (AUTO) 5.1 % (1.7-9.3); NEUTROPHILS # (AUTO) 6.3 K/uL (1.8-7.7); NEUTROPHILS % (AUTO) 72.2 % (40.0-70.0); PLATELET COUNT (AUTO) 407 K/uL (130-430); RED BLOOD CELL COUNT(AUTO) 2.75 MIL/uL (4.2-6.2); RED CELL DISTRIBUTION WIDTH 16.8 % (9.0-15.0); WHITE BLOOD COUNT (AUTO) 8.7 K/uL (4.8-10.8)
[2019-06-20] MEDS: INSULIN REGULAR, HUMAN 100 UNITS/ML, 10 ML VIAL (humuLIN R) SUBCUT PRN ×4 (06:28→23:32)
[2019-06-20 06:38] LABS: CALCIUM 7.2 mg/dL (8.4-11.0); CREATININE 0.33 mg/dL (0.55-1.30); PHOSPHORUS 2.6 mg/dL (2.7-4.5); POTASSIUM 3.6 mmol/L (3.5-5.1)
[2019-06-20] MEDS: ALBUTEROL SULFATE 0.083% 2.5 MG/3 ML VIAL.NEB INH SCH ×3 (07:00→23:13)
[2019-06-20] MEDS: PANTOPRAZOLE SODIUM 40 MG/VIAL (PROTONIX) IVP SCH (10:35)
[2019-06-20] MEDS: INSULIN GLARGINE 100 UNITS/ML 10 ML VIAL SQ SCH (10:37)
[2019-06-20] MEDS: NACL 0.9% 1,000 ML IV SCH ×2 (13:30→15:58)
[2019-06-20] MEDS: FLUCONAZOLE 200 mg/ NS 100 ML IV SCH (17:39)
[2019-06-20] MEDS: SOD FERRIC GLUC COMPLEX/SUC 125 MG in NS 100 ML IV SCH (17:40)
[2019-06-20] MEDS ORDERED: TPN CENTRAL IV SCH ×9 (21:00)
[2019-06-20] MEDS ORDERED: POTASSIUM CHLORIDE IV SCH ×9 (21:00)
[2019-06-20] MEDS ORDERED: [UNRECOGNIZED DRUG - OTHER] IV SCH ×9 (21:00)
[2019-06-20] MEDS ORDERED: SODIUM CHLORIDE IV SCH ×9 (21:00)
[2019-06-20] MEDS: ENOXAPARIN SODIUM 40 MG/0.4 ML SYRINGE SUBCUT SCH (22:36)
[2019-06-20] MEDS: FAT EMULSIONS 250 ML IV SCH (22:37)
[2019-06-21] VITALS (26 sets, daily range): BP systolic 118–259
[2019-06-21] MEDS: BALSAM PERU/CASTOR OIL 60 GM OINT...G. TP SCH (02:03)
[2019-06-21] MEDS: MEROPENEM 500 MG in NS 50 ML IV SCH (05:39)
[2019-06-21] MEDS: METOCLOPRAMIDE HCL 10 MG/2 ML VIAL IVP SCH ×3 (05:39→23:01)
[2019-06-21 05:43] LABS: BASOPHILS % (AUTO) 0.4 % (0.0-2.0); HEMATOCRIT 22.6 % (36-48); HEMOGLOBIN 7.6 g/dL (12.0-16.0); LYMPHOCYTES # (AUTO) 1.8 K/uL (1.0-5.5); LYMPHOCYTES % (AUTO) 19.2 % (20.5-51.5); MEAN CORPUSCULAR HEMOGLOBIN 32 pg (27-31); MEAN CORPUSCULAR HGB CONC 34 % (32-36); MEAN CORPUSCULAR VOLUME 95 fL (79.0-98.0); MONOCYTES # (AUTO) 0.5 K/uL (0.0-1.0); MONOCYTES % (AUTO) 5.1 % (1.7-9.3); NEUTROPHILS # (AUTO) 7.1 K/uL (1.8-7.7); NEUTROPHILS % (AUTO) 75.3 % (40.0-70.0); PLATELET COUNT (AUTO) 339 K/uL (130-430); RED BLOOD CELL COUNT(AUTO) 2.37 MIL/uL (4.2-6.2); RED CELL DISTRIBUTION WIDTH 17.2 % (9.0-15.0); WHITE BLOOD COUNT (AUTO) 9.4 K/uL (4.8-10.8)
[2019-06-21 06:03] LABS: ALBUMIN 0.8 g/dL (3.4-4.8); CREATININE 0.29 mg/dL (0.55-1.30); PHOSPHORUS 1.7 mg/dL (2.7-4.5); POTASSIUM 3.1 mmol/L (3.5-5.1); TOTAL BILIRUBIN 0.2 mg/dL (0.0-1.0)
[2019-06-21 06:26] LABS: CALCIUM 6.3 mg/dL (8.4-11.0)
[2019-06-21] MEDS: INSULIN REGULAR, HUMAN 100 UNITS/ML, 10 ML VIAL (humuLIN R) SUBCUT PRN ×4 (06:27→20:17)
[2019-06-21] MEDS: ALBUTEROL SULFATE 0.083% 2.5 MG/3 ML VIAL.NEB INH SCH ×3 (07:11→23:35)
[2019-06-21] MEDS: NACL 0.9% 1,000 ML IV SCH (09:46)
[2019-06-21] MEDS: PANTOPRAZOLE SODIUM 40 MG/VIAL (PROTONIX) IVP SCH (09:47)
[2019-06-21] MEDS: INSULIN GLARGINE 100 UNITS/ML 10 ML VIAL SQ SCH (09:50)
[2019-06-21] MEDS: PIPERACILLIN/TAZO 2.25G/DEX-IS 50 ML IV SCH ×3 (12:45→23:01)
[2019-06-21] MEDS ORDERED: K PHOS 15 MM in NS 250 ML IV ONE (13:00)
[2019-06-21] MEDS: SOD FERRIC GLUC COMPLEX/SUC 125 MG in NS 100 ML IV SCH (15:14)
[2019-06-21] MEDS: FLUCONAZOLE 200 mg/ NS 100 ML IV SCH (16:40)
[2019-06-21] MEDS: ENOXAPARIN SODIUM 40 MG/0.4 ML SYRINGE SUBCUT SCH (20:17)
[2019-06-21] MEDS: FAT EMULSIONS 250 ML IV SCH (20:18)
[2019-06-21] MEDS ORDERED: TPN CENTRAL IV SCH ×10 (21:00)
[2019-06-21] MEDS ORDERED: [UNRECOGNIZED DRUG - OTHER] IV SCH ×10 (21:00)
[2019-06-21] MEDS ORDERED: SODIUM CHLORIDE IV SCH ×10 (21:00)
[2019-06-21] MEDS ORDERED: POTASSIUM CHLORIDE IV SCH ×10 (21:00)
[2019-06-22] VITALS (22 sets, daily range): BP systolic 18–171
[2019-06-22] MEDS: PIPERACILLIN/TAZO 2.25G/DEX-IS 50 ML IV SCH ×4 (05:20→23:16)
[2019-06-22] MEDS: METOCLOPRAMIDE HCL 10 MG/2 ML VIAL IVP SCH ×3 (05:21→21:04)
[2019-06-22 05:35] LABS: BASOPHILS % (AUTO) 0.4 % (0.0-2.0); EOSINOPHILS % (AUTO) 0.2 % (0.0-4.0); HEMOGLOBIN 7.2 g/dL (12.0-16.0); LYMPHOCYTES # (AUTO) 1.7 K/uL (1.0-5.5); MONOCYTES # (AUTO) 0.4 K/uL (0.0-1.0); WHITE BLOOD COUNT (AUTO) 10.3 K/uL (4.8-10.8)
[2019-06-22 05:41] LABS: LYMPHOCYTES % (AUTO) 16.5 % (20.5-51.5); MEAN CORPUSCULAR HEMOGLOBIN 33 pg (27-31); MEAN CORPUSCULAR HGB CONC 34 % (32-36); MEAN CORPUSCULAR VOLUME 95 fL (79.0-98.0); MONOCYTES % (AUTO) 3.7 % (1.7-9.3); NEUTROPHILS # (AUTO) 8.2 K/uL (1.8-7.7); NEUTROPHILS % (AUTO) 79.2 % (40.0-70.0); PLATELET COUNT (AUTO) 338 K/uL (130-430); RED BLOOD CELL COUNT(AUTO) 2.22 MIL/uL (4.2-6.2); RED CELL DISTRIBUTION WIDTH 16.5 % (9.0-15.0)
[2019-06-22 05:50] LABS: HEMATOCRIT 21.1 % (36-48)
[2019-06-22 05:56] LABS: ALBUMIN 0.7 g/dL (3.4-4.8)
[2019-06-22] MEDS: INSULIN REGULAR, HUMAN 100 UNITS/ML, 10 ML VIAL (humuLIN R) SUBCUT PRN ×4 (06:15→21:06)
[2019-06-22 06:35] LABS: CREATININE 0.26 mg/dL (0.55-1.30); POTASSIUM 3.3 mmol/L (3.5-5.1)
[2019-06-22 06:36] LABS: PHOSPHORUS 2.2 mg/dL (2.7-4.5); TOTAL BILIRUBIN 0.2 mg/dL (0.0-1.0)
[2019-06-22 06:48] LABS: CALCIUM 6.8 mg/dL (8.4-11.0)
[2019-06-22] MEDS: ALBUTEROL SULFATE 0.083% 2.5 MG/3 ML VIAL.NEB INH SCH ×3 (07:21→23:27)
[2019-06-22] MEDS: PANTOPRAZOLE SODIUM 40 MG/VIAL (PROTONIX) IVP SCH (08:28)
[2019-06-22] MEDS: BALSAM PERU/CASTOR OIL 60 GM OINT...G. TP SCH (08:28)
[2019-06-22] MEDS: NACL 0.9% 1,000 ML IV SCH (08:37)
[2019-06-22] MEDS: INSULIN GLARGINE 100 UNITS/ML 10 ML VIAL SQ SCH (09:23)
[2019-06-22] MEDS: SOD FERRIC GLUC COMPLEX/SUC 125 MG in NS 100 ML IV SCH (16:11)
[2019-06-22] MEDS: FLUCONAZOLE 200 mg/ NS 100 ML IV SCH (17:24)
[2019-06-22] MEDS ORDERED: POTASSIUM CHLORIDE 40 MEQ in NS 250 ML IV ONE (17:30)
[2019-06-22] MEDS ORDERED: FUROSEMIDE 20 MG/2 ML VIAL IVP ONE (17:30)
[2019-06-22] MEDS ORDERED: TPN CENTRAL IV SCH ×10 (21:00)
[2019-06-22] MEDS ORDERED: POTASSIUM CHLORIDE IV SCH ×10 (21:00)
[2019-06-22] MEDS ORDERED: SODIUM CHLORIDE IV SCH ×10 (21:00)
[2019-06-22] MEDS ORDERED: [UNRECOGNIZED DRUG - OTHER] IV SCH ×10 (21:00)
[2019-06-22] MEDS: ENOXAPARIN SODIUM 40 MG/0.4 ML SYRINGE SUBCUT SCH (21:05)
[2019-06-22] MEDS: FAT EMULSIONS 250 ML IV SCH (21:06)
[2019-06-22] MEDS: LOSARTAN POTASSIUM 50 MG TABLET (COZAAR) GT SCH (21:26)
[2019-06-23] VITALS: BP_SYST 140
[2019-06-23] MEDS: PIPERACILLIN/TAZO 2.25G/DEX-IS 50 ML IV SCH ×4 (06:05→23:49)
[2019-06-23] MEDS: METOCLOPRAMIDE HCL 10 MG/2 ML VIAL IVP SCH ×3 (06:05→22:58)
[2019-06-23] MEDS: INSULIN REGULAR, HUMAN 100 UNITS/ML, 10 ML VIAL (humuLIN R) SUBCUT PRN ×4 (06:10→23:05)
[2019-06-23 06:43] LABS: ALBUMIN 0.8 g/dL (3.4-4.8); CREATININE 0.22 mg/dL (0.55-1.30); POTASSIUM 3.8 mmol/L (3.5-5.1); TOTAL BILIRUBIN 0.2 mg/dL (0.0-1.0)
[2019-06-23 06:44] LABS: BASOPHILS # (AUTO) 0.1 K/uL (0.0-0.2); BASOPHILS % (AUTO) 0.5 % (0.0-2.0); EOSINOPHILS # (AUTO) 0.1 K/uL (0.0-0.4); EOSINOPHILS % (AUTO) 0.8 % (0.0-4.0); HEMATOCRIT 32.1 % (36-48); HEMOGLOBIN 11.4 g/dL (12.0-16.0); LYMPHOCYTES # (AUTO) 1.7 K/uL (1.0-5.5); LYMPHOCYTES % (AUTO) 16.5 % (20.5-51.5); MEAN CORPUSCULAR HEMOGLOBIN 36 pg (27-31); MEAN CORPUSCULAR HGB CONC 35 % (32-36); MEAN CORPUSCULAR VOLUME 101 fL (79.0-98.0); MONOCYTES # (AUTO) 0.3 K/uL (0.0-1.0); MONOCYTES % (AUTO) 3.2 % (1.7-9.3); NEUTROPHILS # (AUTO) 8.2 K/uL (1.8-7.7); PLATELET COUNT (AUTO) 343 K/uL (130-430); RED BLOOD CELL COUNT(AUTO) 3.17 MIL/uL (4.2-6.2); RED CELL DISTRIBUTION WIDTH 17.2 % (9.0-15.0); WHITE BLOOD COUNT (AUTO) 10.4 K/uL (4.8-10.8)
[2019-06-23] MEDS: ALBUTEROL SULFATE 0.083% 2.5 MG/3 ML VIAL.NEB INH SCH ×3 (07:24→23:50)
[2019-06-23 07:31] LABS: CALCIUM 6.1 mg/dL (8.4-11.0)
[2019-06-23 08:00] VITALS: BP_SYST 140
[2019-06-23] MEDS: PANTOPRAZOLE SODIUM 40 MG/VIAL (PROTONIX) IVP SCH (08:05)
[2019-06-23] MEDS: LOSARTAN POTASSIUM 50 MG TABLET (COZAAR) GT SCH ×2 (08:05→22:58)
[2019-06-23] MEDS: NACL 0.9% 1,000 ML IV SCH (08:08)
[2019-06-23] MEDS: INSULIN GLARGINE 100 UNITS/ML 10 ML VIAL SQ SCH (08:08)
[2019-06-23] MEDS: BALSAM PERU/CASTOR OIL 60 GM OINT...G. TP SCH (08:08)
[2019-06-23 09:49] VITALS: BP_SYST 140
[2019-06-23 12:22] VITALS: BP_SYST 100; BP_SYST 145
[2019-06-23 16:15] VITALS: BP_SYST 121
[2019-06-23] MEDS: SOD FERRIC GLUC COMPLEX/SUC 125 MG in NS 100 ML IV SCH (16:24)
[2019-06-23] MEDS: FLUCONAZOLE 200 mg/ NS 100 ML IV SCH (17:54)
[2019-06-23 20:00] VITALS: BP_SYST 117
[2019-06-23] MEDS ORDERED: POTASSIUM CHLORIDE IV SCH ×10 (21:00)
[2019-06-23] MEDS ORDERED: [UNRECOGNIZED DRUG - OTHER] IV SCH ×10 (21:00)
[2019-06-23] MEDS ORDERED: TPN CENTRAL IV SCH ×10 (21:00)
[2019-06-23] MEDS ORDERED: SODIUM CHLORIDE IV SCH ×10 (21:00)
[2019-06-23] MEDS: FAT EMULSIONS 250 ML IV SCH (22:57)
[2019-06-23] MEDS: ENOXAPARIN SODIUM 40 MG/0.4 ML SYRINGE SUBCUT SCH (22:57)
[2019-06-24] VITALS: BP_SYST 131
[2019-06-24] MEDS: PIPERACILLIN/TAZO 2.25G/DEX-IS 50 ML IV SCH ×3 (05:55→18:13)
[2019-06-24] MEDS: METOCLOPRAMIDE HCL 10 MG/2 ML VIAL IVP SCH ×3 (05:56→21:23)
[2019-06-24] MEDS: INSULIN REGULAR, HUMAN 100 UNITS/ML, 10 ML VIAL (humuLIN R) SUBCUT PRN ×3 (05:58→21:00)
[2019-06-24 07:07] LABS: CALCIUM 7.1 mg/dL (8.4-11.0); CREATININE 0.28 mg/dL (0.55-1.30); PHOSPHORUS 2.7 mg/dL (2.7-4.5); POTASSIUM 4.1 mmol/L (3.5-5.1)
[2019-06-24 08:00] VITALS: BP_SYST 149
[2019-06-24] MEDS: LOSARTAN POTASSIUM 50 MG TABLET (COZAAR) GT SCH ×2 (08:01→20:38)
[2019-06-24] MEDS: PANTOPRAZOLE SODIUM 40 MG/VIAL (PROTONIX) IVP SCH (08:01)
[2019-06-24] MEDS: BALSAM PERU/CASTOR OIL 60 GM OINT...G. TP SCH (08:02)
[2019-06-24] MEDS: INSULIN GLARGINE 100 UNITS/ML 10 ML VIAL SQ SCH (08:07)
[2019-06-24] MEDS: NACL 0.9% 1,000 ML IV SCH (09:30)
[2019-06-24 12:48] VITALS: BP_SYST 141
[2019-06-24] MEDS: SOD FERRIC GLUC COMPLEX/SUC 125 MG in NS 100 ML IV SCH (15:12)
[2019-06-24 17:05] VITALS: BP_SYST 157
[2019-06-24] MEDS: FLUCONAZOLE 200 mg/ NS 100 ML IV SCH (17:23)
[2019-06-24 19:50] VITALS: BP_SYST 125
[2019-06-24] MEDS: FAT EMULSIONS 250 ML IV SCH (20:27)
[2019-06-24] MEDS: ENOXAPARIN SODIUM 40 MG/0.4 ML SYRINGE SUBCUT SCH (20:39)
[2019-06-24] MEDS ORDERED: POTASSIUM CHLORIDE IV SCH ×10 (21:00)
[2019-06-24] MEDS ORDERED: SODIUM CHLORIDE IV SCH ×10 (21:00)
[2019-06-24] MEDS ORDERED: [UNRECOGNIZED DRUG - OTHER] IV SCH ×10 (21:00)
[2019-06-24] MEDS ORDERED: TPN CENTRAL IV SCH ×10 (21:00)
[2019-06-24] MEDS: ALBUTEROL SULFATE 0.083% 2.5 MG/3 ML VIAL.NEB INH SCH (23:15)
[2019-06-25] MEDS: PIPERACILLIN/TAZO 2.25G/DEX-IS 50 ML IV SCH ×3 (00:01→11:49)
[2019-06-25 00:53] VITALS: BP_SYST 145
[2019-06-25] MEDS: METOCLOPRAMIDE HCL 10 MG/2 ML VIAL IVP SCH ×3 (05:18→20:32)
[2019-06-25] MEDS: INSULIN REGULAR, HUMAN 100 UNITS/ML, 10 ML VIAL (humuLIN R) SUBCUT PRN ×4 (06:29→22:01)
[2019-06-25] MEDS: ALBUTEROL SULFATE 0.083% 2.5 MG/3 ML VIAL.NEB INH SCH ×3 (07:23→23:26)
[2019-06-25 08:00] VITALS: BP_SYST 132
[2019-06-25 08:16] LABS: ALBUMIN 0.9 g/dL (3.4-4.8); CALCIUM 7.6 mg/dL (8.4-11.0); CREATININE 0.27 mg/dL (0.55-1.30); PHOSPHORUS 2.7 mg/dL (2.7-4.5); POTASSIUM 3.9 mmol/L (3.5-5.1); TOTAL BILIRUBIN 0.4 mg/dL (0.0-1.0)
[2019-06-25] MEDS: LOSARTAN POTASSIUM 50 MG TABLET (COZAAR) GT SCH ×2 (10:13→20:32)
[2019-06-25] MEDS: PANTOPRAZOLE SODIUM 40 MG/VIAL (PROTONIX) IVP SCH (10:13)
[2019-06-25] MEDS: BALSAM PERU/CASTOR OIL 60 GM OINT...G. TP SCH (10:15)
[2019-06-25] MEDS: INSULIN GLARGINE 100 UNITS/ML 10 ML VIAL SQ SCH (10:15)
[2019-06-25] MEDS: NACL 0.9% 1,000 ML IV SCH (10:16)
[2019-06-25 12:26] VITALS: BP_SYST 149
[2019-06-25] MEDS: CEFEPIME 1 GM in D5W 50 ML IV SCH (14:59)
[2019-06-25 16:40] VITALS: BP_SYST 117
[2019-06-25 19:00] VITALS: BP_SYST 129
[2019-06-25 20:00] VITALS: BP_SYST 129
[2019-06-25] MEDS: ENOXAPARIN SODIUM 40 MG/0.4 ML SYRINGE SUBCUT SCH (20:33)
[2019-06-25] MEDS: FAT EMULSIONS 250 ML IV SCH (20:34)
[2019-06-25] MEDS ORDERED: [UNRECOGNIZED DRUG - OTHER] IV SCH ×10 (21:00)
[2019-06-25] MEDS ORDERED: POTASSIUM CHLORIDE IV SCH ×10 (21:00)
[2019-06-25] MEDS ORDERED: TPN CENTRAL IV SCH ×10 (21:00)
[2019-06-25] MEDS ORDERED: SODIUM CHLORIDE IV SCH ×10 (21:00)
[2019-06-26 00:43] VITALS: BP_SYST 133
[2019-06-26] MEDS: CEFEPIME 1 GM in D5W 50 ML IV SCH ×2 (02:00→14:46)
[2019-06-26] MEDS: METOCLOPRAMIDE HCL 10 MG/2 ML VIAL IVP SCH ×3 (05:37→21:37)
[2019-06-26] MEDS: INSULIN REGULAR, HUMAN 100 UNITS/ML, 10 ML VIAL (humuLIN R) SUBCUT PRN ×4 (05:45→21:56)
[2019-06-26 06:26] LABS: ALBUMIN 0.8 g/dL (3.4-4.8); CREATININE 0.28 mg/dL (0.55-1.30); PHOSPHORUS 2.8 mg/dL (2.7-4.5); POTASSIUM 3.9 mmol/L (3.5-5.1); TOTAL BILIRUBIN 0.2 mg/dL (0.0-1.0)
[2019-06-26 07:21] LABS: HEMATOCRIT 28.3 % (36-48); HEMOGLOBIN 10.4 g/dL (12.0-16.0); MEAN CORPUSCULAR HEMOGLOBIN 34 pg (27-31); MEAN CORPUSCULAR HGB CONC 37 % (32-36); MEAN CORPUSCULAR VOLUME 93 fL (79.0-98.0); PLATELET COUNT (AUTO) 530 K/uL (130-430); RED BLOOD CELL COUNT(AUTO) 3.03 MIL/uL (4.2-6.2); RED CELL DISTRIBUTION WIDTH 17.1 % (9.0-15.0); WHITE BLOOD COUNT (AUTO) 11.6 K/uL (4.8-10.8)
[2019-06-26] MEDS: ALBUTEROL SULFATE 0.083% 2.5 MG/3 ML VIAL.NEB INH SCH ×2 (07:30→23:15)
[2019-06-26 08:00] VITALS: BP_SYST 121
[2019-06-26] MEDS: BALSAM PERU/CASTOR OIL 60 GM OINT...G. TP SCH (09:00)
[2019-06-26] MEDS: PANTOPRAZOLE SODIUM 40 MG/VIAL (PROTONIX) IVP SCH (09:40)
[2019-06-26] MEDS: LOSARTAN POTASSIUM 50 MG TABLET (COZAAR) GT SCH ×2 (09:40→21:53)
[2019-06-26] MEDS: INSULIN GLARGINE 100 UNITS/ML 10 ML VIAL SQ SCH (09:42)
[2019-06-26 09:56] LABS: ATYPICAL LYMPHOCYTES % 0 % (0-0); BAND % (MANUAL) 8 % (0-6); BASOPHILS % (MANUAL) 0 % (0-2); EOSINOPHILS % (MANUAL) 0 % (0-7); LYMPHOCYTES % (MANUAL) 14 % (20-46); MONOCYTES % (MANUAL) 7 % (0-11)
[2019-06-26] MEDS: NACL 0.9% 1,000 ML IV SCH (10:00)
[2019-06-26 12:49] VITALS: BP_SYST 132
[2019-06-26 16:22] VITALS: BP_SYST 147
[2019-06-26 20:00] VITALS: BP_SYST 139
[2019-06-26] MEDS ORDERED: TPN CENTRAL IV SCH ×10 (21:00)
[2019-06-26] MEDS ORDERED: [UNRECOGNIZED DRUG - OTHER] IV SCH ×10 (21:00)
[2019-06-26] MEDS ORDERED: SODIUM CHLORIDE IV SCH ×10 (21:00)
[2019-06-26] MEDS ORDERED: POTASSIUM CHLORIDE IV SCH ×10 (21:00)
[2019-06-26] MEDS: FAT EMULSIONS 250 ML IV SCH (21:39)
[2019-06-26] MEDS: ENOXAPARIN SODIUM 40 MG/0.4 ML SYRINGE SUBCUT SCH (21:40)
[2019-06-27 00:53] VITALS: BP_SYST 140
[2019-06-27] MEDS: CEFEPIME 1 GM in D5W 50 ML IV SCH ×2 (01:41→14:04)
[2019-06-27] MEDS: METOCLOPRAMIDE HCL 10 MG/2 ML VIAL IVP SCH ×2 (05:20→14:03)
[2019-06-27] MEDS: INSULIN REGULAR, HUMAN 100 UNITS/ML, 10 ML VIAL (humuLIN R) SUBCUT PRN ×3 (06:23→18:01)
[2019-06-27] MEDS: ALBUTEROL SULFATE 0.083% 2.5 MG/3 ML VIAL.NEB INH SCH ×2 (07:09→15:31)
[2019-06-27 08:00] VITALS: BP_SYST 134
[2019-06-27] MEDS: PANTOPRAZOLE SODIUM 40 MG/VIAL (PROTONIX) IVP SCH (09:09)
[2019-06-27] MEDS: INSULIN GLARGINE 100 UNITS/ML 10 ML VIAL SQ SCH (09:09)
[2019-06-27] MEDS: LOSARTAN POTASSIUM 50 MG TABLET (COZAAR) GT SCH (09:13)
[2019-06-27] MEDS: BALSAM PERU/CASTOR OIL 60 GM OINT...G. TP SCH (09:14)
[2019-06-27] MEDS: NACL 0.9% 1,000 ML IV SCH (09:22)
[2019-06-27 12:01] LABS: CALCIUM 7.4 mg/dL (8.4-11.0); CREATININE 0.31 mg/dL (0.55-1.30); POTASSIUM 4.1 mmol/L (3.5-5.1)
[2019-06-27 12:30] VITALS: BP_SYST 113
[2019-06-27 16:21] VITALS: BP_SYST 119
[2019-06-27 18:45] VITALS: BP_SYST 127
[2019-06-27] MEDS ORDERED: TPN CENTRAL IV SCH ×10 (21:00)
[2019-06-27] MEDS ORDERED: POTASSIUM CHLORIDE IV SCH ×10 (21:00)
[2019-06-27] MEDS ORDERED: SODIUM CHLORIDE IV SCH ×10 (21:00)
[2019-06-27] MEDS ORDERED: [UNRECOGNIZED DRUG - OTHER] IV SCH ×10 (21:00)
== END 2019-06-27 19:15 | DRG 326 ==
LOC: SMU 06-17 15:16 → SIC 06-19 15:13 → STU 06-22 22:17 → SMU 06-25 16:43
PROVIDERS: ADMIT Family Medicine; ATTEND Family Medicine
PROC: 0DW68UZ Revision of Feeding Device in Stomach, Via Natural or Artificial Opening Endoscopic (ICD-10-PCS; 2019-06-19)
PROC: 5A1945Z Respiratory Ventilation, 24-96 Consecutive Hours (ICD-10-PCS; 2019-06-19)
PROC: 0W9G4ZZ Drainage of Peritoneal Cavity, Percutaneous Endoscopic Approach (ICD-10-PCS; 2019-06-19)
PROC: 0DQ84ZZ Repair Small Intestine, Percutaneous Endoscopic Approach (ICD-10-PCS; principal; 2019-06-19 12:30)
PROC: 0BH17EZ Insertion of Endotracheal Airway into Trachea, Via Natural or Artificial Opening (ICD-10-PCS; 2019-06-20)
PROC: 30233N1 Transfusion of Nonautologous Red Blood Cells into Peripheral Vein, Percutaneous Approach (ICD-10-PCS; 2019-06-22)
DX: K94.23 Gastrostomy malfunction (principal); J69.0 Pneumonitis due to inhalation of food and vomit; K65.1 Peritoneal abscess; J96.00 Acute respiratory failure, unspecified whether with hypoxia or hypercapnia; K81.0 Acute cholecystitis; E87.1 Hypo-osmolality and hyponatremia; R18.8 Other ascites; J91.8 Pleural effusion in other conditions classified elsewhere; S36.439A Laceration of unspecified part of small intestine, initial encounter; N39.0 Urinary tract infection, site not specified; D64.9 Anemia, unspecified; E78.5 Hyperlipidemia, unspecified; I25.10 Atherosclerotic heart disease of native coronary artery without angina pectoris; K66.0 Peritoneal adhesions (postprocedural) (postinfection); E11.9 Type 2 diabetes mellitus without complications; I12.9 Hypertensive chronic kidney disease with stage 1 through stage 4 chronic kidney disease, or unspecified chronic kidney disease; N18.9 Chronic kidney disease, unspecified; L89.159 Pressure ulcer of sacral region, unspecified stage; Y83.8 Other surgical procedures as the cause of abnormal reaction of the patient, or of later complication, without mention of misadventure at the time of the procedure; X58.XXXA Exposure to other specified factors, initial encounter; Z86.73 Personal history of transient ischemic attack (TIA), and cerebral infarction without residual deficits; Z82.3 Family history of stroke; Z83.3 Family history of diabetes mellitus; Z87.81 Personal history of (healed) traumatic fracture; Z88.8 Allergy status to other drugs, medicaments and biological substances; Z79.899 Other long term (current) drug therapy; Z79.4 Long term (current) use of insulin; I25.2 Old myocardial infarction; Y92.89 Other specified places as the place of occurrence of the external cause; Y93.89 Activity, other specified; Y99.8 Other external cause status; Y83.3 Surgical operation with formation of external stoma as the cause of abnormal reaction of the patient, or of later complication, without mention of misadventure at the time of the procedure
CPT/HCPCS: 36415; 36600; 71045; 76700-TC; 80048; 80053; 81000-TC; 82803-TC; 82962; 83735-TC; 83880; 84100-TC; 84478-TC; 85007; 85025; 85027; 85610-TC; 86886; 86900; 86901; 86920; 87040-TC; 87070-TC; 87075-TC; 87081; 87205-TC; 93005; 93306; 94002; 94003; 94640; 94760; A6209; C1727; C9113; G0378; J0692; J1450; J1650; J1815; J1940; J2185; J2270; J2405; J2543; J2704; J2765; J2916; J3010; J3370; J3475; J3480; J7030; J7050; J7060; J7120; J7131; J7613; P9021; Q9967

== ENCOUNTER 2019-07-21 20:49 | Inpatient (IN) | payer OTHER, MEDICAID ==
[~2019-07-21] VITALS: Ht 162.6 cm; Wt 64.0 kg
[2019-07-21 20:49] VITALS: BP_SYST 122
[~2019-07-21 20:49] MED LIST changes: +ACET-2165 PR; +ALBU2.5V7 INH; +INSU100V9 SQ; -Insulin Glargine SQ; +MERO500V IV
--- NOTE | 2019-07-21 21:28 | NUR ---
Patient to ER bed 7 to gown for evaluation. Side rails up.
--- NOTE | 2019-07-21 21:32 | NUR ---
Dr. Zaragoza bedside for Pt eval
--- NOTE | 2019-07-21 21:36 | NUR ---
Pt BIBA to ED for evaluation of discharge from laparoscopic cholecystectomy surgical site VSS no s/s of acute distress Resting on gurney rails up
--- NOTE | 2019-07-21 21:45 | NUR ---
Lab at bedside for blood draw, well tolerated
[2019-07-21 21:55] LABS: BASOPHILS % (AUTO) 0.4 % (0.0-2.0); EOSINOPHILS # (AUTO) 0.5 K/uL (0.0-0.4); EOSINOPHILS % (AUTO) 6.2 % (0.0-4.0); HEMATOCRIT 26.7 % (36-48); HEMOGLOBIN 8.9 g/dL (12.0-16.0); LYMPHOCYTES % (AUTO) 23.1 % (20.5-51.5); MEAN CORPUSCULAR HEMOGLOBIN 31 pg (27-31); MEAN CORPUSCULAR HGB CONC 33 % (32-36); MEAN CORPUSCULAR VOLUME 93 fL (79.0-98.0); MONOCYTES # (AUTO) 0.6 K/uL (0.0-1.0); MONOCYTES % (AUTO) 6.6 % (1.7-9.3); NEUTROPHILS # (AUTO) 5.4 K/uL (1.8-7.7); NEUTROPHILS % (AUTO) 63.7 % (40.0-70.0); PLATELET COUNT (AUTO) 266 K/uL (130-430); RED BLOOD CELL COUNT(AUTO) 2.88 MIL/uL (4.2-6.2); RED CELL DISTRIBUTION WIDTH 15.9 % (9.0-15.0); WHITE BLOOD COUNT (AUTO) 8.6 K/uL (4.8-10.8)
[2019-07-21 22:03] LABS: CALCIUM 8.1 mg/dL (8.4-11.0); CREATININE 0.33 mg/dL (0.55-1.30)
[2019-07-21] MEDS ORDERED: IOHEXOL 100 ML IV ONE (22:03)
[2019-07-21 22:06] LABS: INR 1.1 (0.8-1.2); PROTHROMBIN TIME 11.5 SECS (9.5-12.5)
[2019-07-21 22:09] LABS: ALBUMIN 1.2 g/dL (3.4-4.8); TOTAL BILIRUBIN 0.1 mg/dL (0.0-1.0)
--- NOTE | 2019-07-21 22:36 | NUR ---
Pt taken to Radiology in stable condition
[2019-07-21 22:45] LABS: BILIRUBIN,URINE NEGATIVE (NEGATIVE); BLOOD, URINE 2+ (NEGATIVE); CLARITY/URINE CLEAR (CLEAR); COLOR,URINE YELLOW (YELLOW); GLUCOSE,URINE TRACE (NEGATIVE); KETONES,URINE NEGATIVE (NEGATIVE); LEUKOCYTE ESTERASE ,URINE 3+ (NEGATIVE); NITRITE, URINE NEGATIVE (NEGATIVE); PH,URINE 6.5 (5.0-8.0); PROTEIN URINE TRACE (NEGATIVE); UROBILINOGEN,URINE 0.2 (0.2-1.0)
[2019-07-21 22:51] LABS: BACTERIA,URINE MANY /HPF (None Seen); MUCUS,URINE 1+ /LPF (None Seen); RBC,URINE 20-50 /HPF (0-3); WBC,URINE >100 /HPF (0-3)
--- NOTE | 2019-07-21 22:51 | NUR ---
Pt back from Radiology, well tolerated
--- NOTE | 2019-07-21 23:25 | NUR ---
VSS no s/s of acute distress Resting on gurney rails up
[2019-07-22] MEDS ORDERED: MEROPENEM 500 MG IVPB PREMIX 50 ML IV SCH (00:15)
--- NOTE | 2019-07-22 00:30 | NUR ---
Pt prep'd for adm to floor, VSS no s/s of acute distress Resting on gurney rails up
--- NOTE | 2019-07-22 01:10 | NUR ---
Transfer to Telemetry via ACLS protocol. Licensed nurse present. IV present no signs or symptoms of infiltration.
--- NOTE | 2019-07-22 01:10 | NUR ---
ADMISSION NOTE Received patient from ER via gurney. Patient admitted with diagnosis of . Patient is awake, alert, oriented X 1. Patient oriented to hospital room, call light, toileting, pain management and safety-teach back done. Patient informed that CHETNA will be HER nurse and that their room number is 102A. Personal belongings checked and Belongings List documented. Call light within reach.
--- NOTE | 2019-07-22 01:10 | NUR ---
Patient will be admitted to care of Dr. Bains. Admitted to Telemetry unit. Will go to room 102A. Belongings list completed. Complete and up to date summary report printed. SBAR report to be given at bedside with opportunity for questions.
[2019-07-22] MEDS ORDERED: KCL 20 mEq in D5/0.45NS 1000mL 1,000 ML IV ONE (01:14)
[2019-07-22] MEDS ORDERED: MEROPENEM 1 GM VIAL IV ONE (01:14)
[2019-07-22 01:22] VITALS: BP_SYST 117
[2019-07-22] MEDS: PANTOPRAZOLE SODIUM 40 MG/VIAL (PROTONIX) IVP SCH ×3 (01:48→21:27)
[2019-07-22] MEDS: KCL 20 mEq in D5/0.45NS 1000mL 1,000 ML IV SCH ×2 (01:52→11:40)
[2019-07-22] MEDS: INSULIN REGULAR, HUMAN 100 UNITS/ML, 10 ML VIAL (humuLIN R) SUBCUT SCH ×5 (02:04→23:15)
--- NOTE | 2019-07-22 02:10 | NUR ---
INITIAL NOTES Patient is resting, no signs of acute respiratory distress observed, O2 saturation is 99% with 2L NC, IVF to be run through the Left upper arm PICC. Drainage bag on the abdominal fistula not to be removed per Dr. Bains, no picture taken and not visualized, red drainage noted and collected in bag. Strickland catheter draining per gravity, no kinks, no loops noted, clear yellow urine. Call light within reach, bed alarm on, bed at lowest position. Will continue to monitor.
--- NOTE | 2019-07-22 03:54 | NUR ---
Patient is asleep comfortably, rise and fall of chest observed, IVF running. Contact precautions in place, will continue to monitor.
--- NOTE | 2019-07-22 04:40 | NUR ---
CONSULTATION PAGED/CALLED Reason for Consultation: ABD FISTULA Person Who was Notified: ASH Consulting Physician: DR. KNOWLES Ordering Physician: DR. REZA
--- NOTE | 2019-07-22 06:30 | NUR ---
CLOSING NOTES Patient is resting, no signs of acute respiratory distress observed, 2L NC, IVF to be run through the Left upper arm PICC. Drainage bag on the abdominal fistula in place, red drainage noted in bag. Strickland catheter draining per gravity, no kinks, no loops noted, clear yellow urine. Call light within reach, bed alarm on, bed at lowest position. All needs met throughout shift. Will endorse care to oncoming shift. Addendum: 07/22/19 at 0732 by Avery Herbert RN Endorsed stool sample for History of C-diff, as no stool was present at this time and phone call to family.
[2019-07-22] MEDS ORDERED: LevALBUTEROL HCL 1.25 MG/0.5 ML *CONC.* VIAL.NEB (XOPENEX CONC.) INH PRN (09:15)
[2019-07-22] MEDS ORDERED: *TPN PER PHARMACY XX PRN (09:15)
--- NOTE | 2019-07-22 09:19 | NUR ---
CONSULTATION PAGED/CALLED Reason for Consultation: [] UTI Person Who was Notified: [] PORFIRIO Consulting Physician: [] DR BOYLE Parts Interpreter Specialty: [] ID Ordering Physician: [] DR REZA
--- NOTE | 2019-07-22 09:26 | NUR ---
CONSULTATION PAGED/CALLED Reason for Consultation: [] ABDOMINAL WOUND WALL Person Who was Notified: [] MARTÍN Consulting Physician: [] DR Debora KNOWLES Project Control Officer Specialty: [] GEN SURGEON Ordering Physician: [] DR REZA
[2019-07-22] MEDS: FLUCONAZOLE 200 mg/ NS 100 ML IV SCH (10:21)
[2019-07-22 10:55] LABS: CALCIUM 8.1 mg/dL (8.4-11.0); CREATININE 0.29 mg/dL (0.55-1.30)
[2019-07-22 11:01] LABS: ALBUMIN 1.1 g/dL (3.4-4.8); PHOSPHORUS 3.3 mg/dL (2.7-4.5)
[2019-07-22 11:07] VITALS: BP_SYST 136
[2019-07-22] MEDS: VANCOMYCIN HCL 1,250 MG in NS 250 ML IV SCH (11:39)
[2019-07-22] MEDS: AMPICILLIN SODIUM/SULBACTAM NA 1.5 GM in NS 50 ML IV SCH ×3 (11:41→23:08)
[2019-07-22 11:46] LABS: TOTAL BILIRUBIN 0.2 mg/dL (0.0-1.0)
[2019-07-22] MEDS: LevALBUTEROL HCL 1.25 MG/0.5 ML *CONC.* VIAL.NEB (XOPENEX CONC.) INH SCH ×2 (15:29→23:15)
[2019-07-22 15:33] VITALS: BP_SYST 123
[2019-07-22 17:20] VITALS: BP_SYST 123
--- NOTE | 2019-07-22 19:30 | NUR ---
Opening notes Received report. Patient is resting in bed, no signs of distress noted. Breathing even and unlabored on 2 L NC. PICC line patent and intact. Purple lumen flushing well. Red lumen has difficulty flushing. Will inform MD. Dressing is in place to abdomen, clean dry and intact. Strickland catheter in place draining urine. Family at bedside. No needs. Call light with the patient. Safety precautions in place.
[2019-07-22 20:00] VITALS: BP_SYST 127
[2019-07-22] MEDS ORDERED: TPN CENTRAL IV SCH ×8 (21:00)
[2019-07-22] MEDS ORDERED: SODIUM ACETATE IV SCH ×8 (21:00)
[2019-07-22] MEDS ORDERED: [UNRECOGNIZED DRUG - OTHER] IV SCH ×8 (21:00)
[2019-07-22] MEDS ORDERED: POTASSIUM CHLORIDE IV SCH ×8 (21:00)
--- NOTE | 2019-07-22 21:30 | NUR ---
Medications given. Educated the action and side effects of medications. Patient tolerated well. Patient turned and repositioned. No other needs. Call light with the patient. Safety precautions in place.
[2019-07-22] MEDS: 0.45% NACL 1,000 ML IV SCH (21:32)
[2019-07-22] MEDS: FAT EMULSIONS 250 ML IV SCH (21:36)
--- NOTE | 2019-07-22 23:30 | NUR ---
Resting Patient is resting in bed. No signs of distress noted. Breathing even and unlabored. Accucheck 201. Insulin given per sliding scale. No other needs. Call light with the patient. Safety precautions in place.
[2019-07-23 01:42] VITALS: BP_SYST 123
--- NOTE | 2019-07-23 02:00 | NUR ---
Sleeping No signs of distress noted. Breathing even and unlabored on 2 L NC. IVF/TPN/Lipids infusing well. Call light with the patient. Safety precautions in place.
--- NOTE | 2019-07-23 05:00 | NUR ---
Hygiene care/Wound care Hygiene and wound care done. Patient tolerated well. No signs of distress noted. Breathing even and unlabored. Fluids infusing well. Call light with the patient. Safety precautions in place.
[2019-07-23] MEDS: AMPICILLIN SODIUM/SULBACTAM NA 1.5 GM in NS 50 ML IV SCH ×4 (06:29→23:23)
[2019-07-23] MEDS: INSULIN REGULAR, HUMAN 100 UNITS/ML, 10 ML VIAL (humuLIN R) SUBCUT PRN ×2 (06:32→23:27)
--- NOTE | 2019-07-23 06:50 | NUR ---
Closing notes Patient resting in bed. No signs of distress noted. Breathing even and unlabored. PICC line patent and intact, infusing TPN/Lipids/IVF. G-tube in place and clamped. Strickland catheter in place. All needs met throughout the shift. Call light with the patient. Safety precautions in place. Will endorse care to day shift RN.
[2019-07-23] MEDS: LevALBUTEROL HCL 1.25 MG/0.5 ML *CONC.* VIAL.NEB (XOPENEX CONC.) INH SCH ×2 (07:09→15:10)
--- NOTE | 2019-07-23 07:13 | NUR ---
Nutrition Update Guicho Scale 14 noted. Pt admitted for Abdominal fistula Diet: NPO BMI: 24.2 kg/m2 RD to follow per nutrition care standards.
[2019-07-23 08:09] LABS: BASOPHILS % (AUTO) 0.3 % (0.0-2.0); EOSINOPHILS # (AUTO) 0.3 K/uL (0.0-0.4); EOSINOPHILS % (AUTO) 4.4 % (0.0-4.0); HEMATOCRIT 28.5 % (36-48); HEMOGLOBIN 9.4 g/dL (12.0-16.0); LYMPHOCYTES # (AUTO) 1.4 K/uL (1.0-5.5); LYMPHOCYTES % (AUTO) 18.8 % (20.5-51.5); MEAN CORPUSCULAR HEMOGLOBIN 31 pg (27-31); MEAN CORPUSCULAR HGB CONC 33 % (32-36); MEAN CORPUSCULAR VOLUME 94 fL (79.0-98.0); MONOCYTES # (AUTO) 0.5 K/uL (0.0-1.0); NEUTROPHILS % (AUTO) 69.5 % (40.0-70.0); PLATELET COUNT (AUTO) 254 K/uL (130-430); RED BLOOD CELL COUNT(AUTO) 3.05 MIL/uL (4.2-6.2); RED CELL DISTRIBUTION WIDTH 15.4 % (9.0-15.0); WHITE BLOOD COUNT (AUTO) 7.3 K/uL (4.8-10.8)
[2019-07-23 08:34] LABS: ALBUMIN 1.2 g/dL (3.4-4.8); CREATININE 0.38 mg/dL (0.55-1.30); PHOSPHORUS 3.5 mg/dL (2.7-4.5); POTASSIUM 3.7 mmol/L (3.5-5.1); TOTAL BILIRUBIN 0.3 mg/dL (0.0-1.0)
[2019-07-23] MEDS: FLUCONAZOLE 200 mg/ NS 100 ML IV SCH (09:45)
[2019-07-23] MEDS: PANTOPRAZOLE SODIUM 40 MG/VIAL (PROTONIX) IVP SCH ×2 (09:47→21:29)
[2019-07-23] MEDS: VANCOMYCIN HCL 1,250 MG in NS 250 ML IV SCH (11:00)
--- NOTE | 2019-07-23 11:38 | NUR ---
Dietitian Recommendations *Continue NPO per MD *Recommend: D30% AA10% at 70ml/hr (goal rate), IL20% at 10ml/hr via central line Provides: 1673 kcal, 84 gm protein and 1920ml fluids daily, GIR 3.9gm CHO/kg/min Meets: 98% of estimated calorie needs and 101% of upper end of estimated protein needs. Please see nutritional Assessment for details. CORRECTION, RD
[2019-07-23 11:49] VITALS: BP_SYST 119
[2019-07-23 17:06] VITALS: BP_SYST 128
[2019-07-23] MEDS: 0.45% NACL 1,000 ML IV SCH (18:12)
--- NOTE | 2019-07-23 19:30 | NUR ---
Opening notes Received report. Patient is resting in bed, no signs of distress noted. Breathing even and unlabored on room air. PICC line patent and intact infusing fluids. G-tube in place and clamped. Dressing is in place to abdomen, clean dry and intact. Strickland catheter in place draining urine. No needs. Call light with the patient. Safety precautions in place.
[2019-07-23 20:04] VITALS: BP_SYST 118
[2019-07-23] MEDS ORDERED: MVI IV SCH ×8 (21:00)
[2019-07-23] MEDS ORDERED: TPN CENTRAL IV SCH ×8 (21:00)
[2019-07-23] MEDS ORDERED: POTASSIUM CHLORIDE IV SCH ×8 (21:00)
[2019-07-23] MEDS ORDERED: MAGNESIUM SULFATE IV SCH ×8 (21:00)
[2019-07-23] MEDS ORDERED: [UNRECOGNIZED DRUG - OTHER] IV SCH ×8 (21:00)
--- NOTE | 2019-07-23 21:30 | NUR ---
Medications given. Educated the action and side effects of medications. Patient tolerated well. New bag of TPN/Lipids/IVF hung. No other needs at this time. Call light with the patient. Safety precautions in place.
[2019-07-23] MEDS: FAT EMULSIONS 250 ML IV SCH (21:33)
--- NOTE | 2019-07-23 23:31 | NUR ---
Accucheck 389 insulin given per sliding scale. Patient tolerated well. No signs of allergic reaction noted. No other needs. Call light with the patient. Safety precautions in place.
[2019-07-24] MEDS: LevALBUTEROL HCL 1.25 MG/0.5 ML *CONC.* VIAL.NEB (XOPENEX CONC.) INH SCH ×4 (00:20→23:15)
[2019-07-24 00:57] VITALS: BP_SYST 133
--- NOTE | 2019-07-24 02:00 | NUR ---
Sleeping No signs of distress noted. Breathing even and unlabored. Fluids infusing well. Call light with the patient. Safety precautions in place.
--- NOTE | 2019-07-24 05:00 | NUR ---
Hygiene care/Wound care Hygiene care done. Stool sample collected for c-diff. Wound care done. Patient tolerated well. Call light with the patient. Safety precautions in place.
[2019-07-24] MEDS: AMPICILLIN SODIUM/SULBACTAM NA 1.5 GM in NS 50 ML IV SCH ×3 (06:09→17:57)
[2019-07-24] MEDS: INSULIN REGULAR, HUMAN 100 UNITS/ML, 10 ML VIAL (humuLIN R) SUBCUT PRN ×2 (06:09→18:11)
--- NOTE | 2019-07-24 06:55 | NUR ---
Closing notes Patient resting in bed. No signs of distress noted. Breathing even and unlabored. PICC line patent and intact, infusing TPN/Lipids/IVF. G-tube in place and clamped. Strickland catheter in place. Accucheck 290. Insulin given per sliding scale. All needs met throughout the shift. Call light with the patient. Safety precautions in place. Will endorse care to day shift RN.
[2019-07-24 07:36] LABS: BASOPHILS % (AUTO) 0.5 % (0.0-2.0); EOSINOPHILS # (AUTO) 0.2 K/uL (0.0-0.4); EOSINOPHILS % (AUTO) 3.2 % (0.0-4.0); HEMATOCRIT 28.4 % (36-48); HEMOGLOBIN 9.3 g/dL (12.0-16.0); LYMPHOCYTES # (AUTO) 1.2 K/uL (1.0-5.5); LYMPHOCYTES % (AUTO) 19.2 % (20.5-51.5); MEAN CORPUSCULAR HEMOGLOBIN 31 pg (27-31); MEAN CORPUSCULAR HGB CONC 33 % (32-36); MEAN CORPUSCULAR VOLUME 94 fL (79.0-98.0); MONOCYTES # (AUTO) 0.4 K/uL (0.0-1.0); MONOCYTES % (AUTO) 6.5 % (1.7-9.3); NEUTROPHILS # (AUTO) 4.6 K/uL (1.8-7.7); NEUTROPHILS % (AUTO) 70.6 % (40.0-70.0); PLATELET COUNT (AUTO) 264 K/uL (130-430); RED BLOOD CELL COUNT(AUTO) 3.02 MIL/uL (4.2-6.2); RED CELL DISTRIBUTION WIDTH 15.3 % (9.0-15.0); WHITE BLOOD COUNT (AUTO) 6.5 K/uL (4.8-10.8)
[2019-07-24 08:12] LABS: ALBUMIN 1.2 g/dL (3.4-4.8); CALCIUM 7.7 mg/dL (8.4-11.0); CREATININE 0.42 mg/dL (0.55-1.30); PHOSPHORUS 2.6 mg/dL (2.7-4.5); POTASSIUM 3.5 mmol/L (3.5-5.1); TOTAL BILIRUBIN 0.2 mg/dL (0.0-1.0)
[2019-07-24] MEDS: PANTOPRAZOLE SODIUM 40 MG/VIAL (PROTONIX) IVP SCH ×2 (09:44→20:35)
[2019-07-24] MEDS: FLUCONAZOLE 200 mg/ NS 100 ML IV SCH (09:45)
[2019-07-24] MEDS ORDERED: DIATR MEGLU/DIATRIZ SOD 30 ML SOLUTION PO ONE ×2 (10:28→12:10)
[2019-07-24] MEDS: VANCOMYCIN HCL 1,250 MG in NS 250 ML IV SCH (11:00)
--- NOTE | 2019-07-24 12:25 | NUR ---
WOUND EVALUATION: Wound Consult received from Dr. Bains. Thank you, Dr. Bains, for the consult. Patient received in a Vulcan Bed with an Isoflex ZEB mattress, awake, non-verbal, moans only, nonresponsive to verbal commands. Patient is unable to turn in bed independently. Guicho Score is a 14. Past Medical History: Diabetes Mellitus, multiple CVA's, Hypertension, Hyperlipidemia, Osteoporosis, Dementia, Coronary Artery Disease, Aspiration Pneumonia, Right Humeral Fracture. Recent Labs: WBC 6.5, RBC 3.02, hemoglobin 9.3, hematocrit 28.4, sodium 133, BUN 11, creatinine 0.42, GFR 163, glucose 319, calcium 7.7, phosphorus 2.6, alkaline phosphatase 251, albumin 1.2. Microbiology: Urine culture result in progress. Blood culture results 2 in progress. MRSA screen results negative. Stool culture for C. difficile results in progress. Intrinsic factors that delay wound healing: Diabetes Mellitus, severe Hypoalbuminemia. Extrinsic factors that delay wound healing: Immobility. Patient underwent laparoscopy, exploratory laparotomy with extensive lysis of adhesions, peritoneal lavage, placement of gastrostomy tube, and repair of small bowel by Dr. Lopez on 06/19/19. Wound Assessment: 1. Sacral/Buttocks area: Stage IV pressure ulcer, present on admission. Site has 60% pink tissue, 40% yellow slough. Mild odor, scant yellow purulent drainage. Periwound pink. Surrounding tissue has dark discolored skin and scar tissue. Undermining present from 811 o'clock (0.7 cm at 8 o'clock; 1.0 cm at 9 o'clock; 0.7 cm at 11 o'clock). Wound measures 6.5 cm x 12.0 cm x 2.0 cm. Recommend: Cleanse wound with normal saline. Apply moisture barrier cream to oriana-wound. Apply Venelex ointment to wound bed. Pack wound with 2.2 inch TenderWet dressings. Cover with Sacral foam dressing. Perform wound care daily, and as needed for dressing soiling or dislodgement. 2. Central abdomen: Dehisced vertical surgical incision, present on admission. Bed has 100% pink tissue. No odor, no drainage. Periwound intact. Wound measures 2.5 cm x 0.3 cm x 1.0 cm. 3. Central abdomen, inferior to site 2: Dehisced vertical surgical incision, present on admission. Bed has 100% pink tissue. No odor, no drainage. Periwound intact. Round, deeper area present in wound, possible fistula. Wound measures 4.0 cm x 1.3 cm x 1.3 cm. 4. Central abdomen, inferior to site 3: Dehisced vertical surgical incision, present on admission. Bed has 60% pink tissue, 40% yellow tissue. No odor, no drainage. Periwound intact. Wound measures 0.5 cm x 0.7 cm x 0.7 cm. 5. Central abdomen, inferior to site 4: Dehisced vertical surgical incision, present on admission. Bed has 40% pink tissue, 60% yellow tissue. No odor, no drainage. Periwound intact. Round, deeper area present in wound, possible fistula. Wound measures 1.5 cm x 0.7 cm x 1.2 cm. Recommend: Cleanse wounds with normal saline. Apply SurePrep to oriana-wounds. Apply Venelex ointment to wound beds. Pack wounds with 1/4 inch Iodoform packing strip. Cover with foam dressings. Perform wound care daily, and as needed for dressing soiling or dislodgement. 6. Right Lateral Posterior Heel: sDTI, present on admission. Site measures 4.0 cm x 1.5 cm. Dry, scaly skin is pealing off with a 50% pink/50% dark discolored area inside measuring 2.2 cm x 1.0 cm. 7. Left Heel: Blanchable red erythema, present on admission. Recommend: Elevate, offload and float bilateral heels with Heelift Boots. Heels should freely float, do not allow any portion of heels to touch boot or other surfaces at any time. Check heels to ensure they are floating during rounds. Also recommend: Reposition patient to side only every 2 hours with one pillow underneath pelvis and one pillow underneath buttock (use should be able to sleep your hand easily underneath buttock area where wounds are). Off-load pressure areas with pillows for pressure re-distribution. Offload, elevate and float bilateral heels with one pillow lengthwise under each extremity at all times. Perform skin care and monitor skin integrity Q shift. Use moisture barrier cream on buttocks and other moisture susceptible areas QID and as needed for soiling. Initiate low air-loss therapy by adding an air pump.
[2019-07-24 12:35] VITALS: BP_SYST 136
[2019-07-24] MEDS: 0.45% NACL 1,000 ML IV SCH (13:00)
--- NOTE | 2019-07-24 13:41 | NUR ---
Nutrition Note RD received Nutrition Consult for Sacral Stage 4 Pressure Ulcer 07/24/2019 1308. Patient was seen yesterday and RD rec to increase protein concentration in TPN for wound healing/skin integrity. Current TPN reflects RD rec. Will continue to monitor. Please see Nutritional Assessment dated 07/23/2019. MIHAI PADGETT
[2019-07-24] MEDS ORDERED: BALSAM PERU/CASTOR OIL 60 GM OINT...G. TP ONE (14:00)
--- NOTE | 2019-07-24 16:07 | NUR ---
spoke to Tiffanie Koehler, daughter of patient and primary decision maker at 1545, I briefly explained the colonoscopy procedure to Tiffanie, she asked a few questions about Dr. Lopez's reasoning for this procedure and informed her the CT imaging was not completely clear and further imaging is required. Furthermore Tiffanie indicated she is not pleased with patients current primary care provider and would like to speak to the surgeon and bull wheel worker to make changes to patients care. 1610: Notified Dr. Lopez of verbal consent for colonscopy, and received bowel prep orders 1610: informed social chely Agarwal to speak to family
[2019-07-24 16:47] VITALS: BP_SYST 130
--- NOTE | 2019-07-24 17:12 | NUR ---
Recieved verbal report from Christina, energy systems laboratory director of critical lab value as follows: iintercoccal spacium positive for VRE paged Dr. Bains at [phone] waiting on return call
[2019-07-24] MEDS ORDERED: GOLYTELY / COLYTE SOLUTION 4 LITERS PO ONE (19:15)
--- NOTE | 2019-07-24 19:43 | NUR ---
PAGED I PAGED DR. ELENI Wakefield @ 1942 I SPOKE WITH HAMILTON DELA CRUZ
[2019-07-24 20:00] VITALS: BP_SYST 136
--- NOTE | 2019-07-24 20:00 | NUR ---
PAGED I PAGED DR. ELENI Wakefield I SPOKE WITH GALILEO KNOWLES CALLED BACK @ 2002
[2019-07-24] MEDS: FAT EMULSIONS 250 ML IV SCH (20:38)
[2019-07-24] MEDS ORDERED: TPN CENTRAL IV SCH ×9 (21:00)
[2019-07-24] MEDS ORDERED: POTASSIUM CHLORIDE IV SCH ×9 (21:00)
[2019-07-24] MEDS ORDERED: SODIUM CHLORIDE IV SCH ×9 (21:00)
[2019-07-24] MEDS ORDERED: [UNRECOGNIZED DRUG - OTHER] IV SCH ×9 (21:00)
[2019-07-24] MEDS ORDERED: K PHOS IV SCH ×9 (21:00)
[2019-07-25] VITALS (7 sets, daily range): BP systolic 101–137
[2019-07-25] MEDS: AMPICILLIN SODIUM/SULBACTAM NA 1.5 GM in NS 50 ML IV SCH ×4 (00:24→17:44)
[2019-07-25] MEDS: 0.45% NACL 1,000 ML IV SCH (00:28)
[2019-07-25] MEDS: INSULIN REGULAR, HUMAN 100 UNITS/ML, 10 ML VIAL (humuLIN R) SUBCUT PRN ×4 (00:42→17:43)
--- NOTE | 2019-07-25 02:42 | NUR ---
Patient in bed. Golytely given until midnight. Small results noted. Patient turned and repositioned q2. No acute distress noted. Will continue to monitor.
[2019-07-25] MEDS: LevALBUTEROL HCL 1.25 MG/0.5 ML *CONC.* VIAL.NEB (XOPENEX CONC.) INH SCH ×3 (06:56→23:24)
[2019-07-25] MEDS ORDERED: SIMETHICONE 40 MG/0.6 ML ML ONE (07:47)
[2019-07-25] MEDS ORDERED: MIDAZOLAM HCL 5 MG/5 ML VIAL ONE (07:48)
[2019-07-25] MEDS ORDERED: fentaNYL CITRATE/PF 100 MCG/2 ML AMP ONE (07:48)
[2019-07-25] MEDS: PANTOPRAZOLE SODIUM 40 MG/VIAL (PROTONIX) IVP SCH ×2 (08:51→20:47)
[2019-07-25] MEDS: BALSAM PERU/CASTOR OIL 60 GM OINT...G. TP SCH (08:52)
[2019-07-25] MEDS: FLUCONAZOLE 200 mg/ NS 100 ML IV SCH (09:03)
--- NOTE | 2019-07-25 09:51 | NUR ---
wound dressing changed on sacral , abdominal and r. heel wounds. pt tolerated well.
[2019-07-25] MEDS ORDERED: BISACODYL 5 MG TABLET.DR (DULCOLAX) PO ONE (10:30)
[2019-07-25] MEDS ORDERED: MAGNESIUM CITRATE 300 ML ORAL SOLUTION PO ONE (10:30)
[2019-07-25] MEDS: VANCOMYCIN HCL 1,250 MG in NS 250 ML IV SCH (11:06)
[2019-07-25] MEDS ORDERED: ACETAMINOPHEN 650 MG SUPP.RECT RC PRN (12:15)
--- NOTE | 2019-07-25 12:30 | NUR ---
noted that greenish black fecal matter coming out of the surgical site, tap water enema done, pt drainage appears clear after 1 dose. initial drainage was black greening also. will check again.
--- NOTE | 2019-07-25 17:00 | NUR ---
tap water enema done second time, drainage was clear, will endorse to night nurse to do another one tonight until clear.
--- NOTE | 2019-07-25 18:28 | NUR ---
CLOSING NOTES, PT HAS BEEN TACHYPNEIC THE WHOLE SHIFT, PT HAS SLIGHT TEMP TODAY , BUT IT GRADUALLY SUBSIDED TIS PM. TAP WATER ENEMA DONE DRAINAGE CAME BACK CLEARE, PT HAD WITH SOME FECAL MATTER. ANOTHER ENEMA WAS DONE, DRAINAGE WAS CLEAR, WILL ASK NIGHT NURSE TO DO ANOTHER ONE TONIGHT TO CHECK. WILL ENDORSE TO NIGHT RN.
--- NOTE | 2019-07-25 19:47 | NUR ---
Initial note: Received report from brittney RN. Patient is resting in bed, no acute distress. Even and unlabored respirations on 2L O2 via nasal cannula. TPN, lipids, and 1/2 NS infusing as ordered to left upper arm PICC line, no infiltration noted. Strickland catheter draining well to gravity. G-tube clamped per MD order, abdominal dressing c/d/i. Call light is with patient. Safety, fall, aspiration precautions in place. Contact isolation in place for positive VRE of urine. Will continue with plan of care.
[2019-07-25] MEDS: LINEZOLID 300 ML IV SCH (20:48)
[2019-07-25] MEDS: FAT EMULSIONS 250 ML IV SCH (20:49)
--- NOTE | 2019-07-25 20:53 | NUR ---
Med pass: Medications scheduled for 2100 administered at this time. Initiated infusion of new bag TPN and lipids per MD order, verified with 2nd RN. ERICH PICC line patent and benign. Call light with patient. Will continue to monitor.
[2019-07-25] MEDS ORDERED: SODIUM CHLORIDE IV SCH ×10 (21:00)
[2019-07-25] MEDS ORDERED: TPN CENTRAL IV SCH ×10 (21:00)
[2019-07-25] MEDS ORDERED: [UNRECOGNIZED DRUG - OTHER] IV SCH ×10 (21:00)
[2019-07-25] MEDS ORDERED: POTASSIUM CHLORIDE IV SCH ×10 (21:00)
[2019-07-25] MEDS ORDERED: K PHOS IV SCH ×10 (21:00)
--- NOTE | 2019-07-25 21:56 | NUR ---
Wound care: Wound care and dressing change rendered for abdominal wound per MD-ordered sliding scale and community health specialist recommendations. Will continue monitoring.
--- NOTE | 2019-07-25 22:25 | NUR ---
Rounds: Patient is resting in bed, no acute distress. Tolerating O2 2L via NC. IV fluids, TPN, lipids infusing as ordered. Call light with pt. Will continue to monitor.
[2019-07-26] MEDS: AMPICILLIN SODIUM/SULBACTAM NA 1.5 GM in NS 50 ML IV SCH ×4 (00:30→17:09)
[2019-07-26] MEDS: 0.45% NACL 1,000 ML IV SCH (00:33)
[2019-07-26] MEDS: INSULIN REGULAR, HUMAN 100 UNITS/ML, 10 ML VIAL (humuLIN R) SUBCUT PRN ×4 (00:35→17:04)
--- NOTE | 2019-07-26 00:35 | NUR ---
Blood sugar: Patient's blood sugar is 381. Administered 10 units regular insulin subcutaneously per MD-ordered sliding scale. Will monitor for s/s hypoglycemia.
[2019-07-26 00:59] VITALS: BP_SYST 126
--- NOTE | 2019-07-26 02:45 | NUR ---
PICC line care: PICC line dressing due to be changed, dressing changed at this time. Sterile technique observed. PICC line flushes well with NS, good blood return. TPN, lipids, IV fluids infusing as ordered. Will continue monitoring.
--- NOTE | 2019-07-26 03:00 | NUR ---
Wound care: Wound care and dressing change rendered for abdominal wound per MD-ordered sliding scale and project controls specialist recommendations. Will continue monitoring.
--- NOTE | 2019-07-26 05:37 | NUR ---
Blood sugar: Patient's blood sugar is 314. Administered 8 units regular insulin per MD-ordered sliding scale. Will continue to monitor.
--- NOTE | 2019-07-26 05:46 | NUR ---
Tap water enema: Administered tap water enema until clear at this time as endorsed by previous shift RN. Utilized 1000 ML tap water. Patient tolerated well. Will perform wound care for sacrum.
--- NOTE | 2019-07-26 06:00 | NUR ---
Wound care: Wound care and dressing changes performed for sacral and heel wounds per MD order and digital asset specialist recommendations. Patient tolerated well. Photo documentation performed. Will continue monitoring.
--- NOTE | 2019-07-26 06:54 | NUR ---
Consent obtained: Informed by charge nurse JERRY Kaur that patient's colonscopy scheduled for today will be under monitored anesthesia. This RN called patient's daughter Tiffanie Koehler at phone number [phone] as listed per face sheet to obtain consent. Daughter was agreeable to use of anesthesia, telephone consent witnessed by charge nurse Natasha RN and this RN. Completed consent form filed in chart.
--- NOTE | 2019-07-26 06:55 | NUR ---
Closing note: Patient is resting in bed, no acute distress. Tolerating 2L NC. TPN, lipids, IV fluids infusing per MD order. Strickland catheter draining to gravity. Dressings are clean, dry, intact. All needs met. Safety, fall, contact isolation, aspiration precautions observed. Hourly rounding performed throughout shift. Will endorse care to dayshift RN.
[2019-07-26 07:41] LABS: CALCIUM 7.5 mg/dL (8.4-11.0); CREATININE 0.35 mg/dL (0.55-1.30); PHOSPHORUS 2.1 mg/dL (2.7-4.5); POTASSIUM 3.1 mmol/L (3.5-5.1)
[2019-07-26] MEDS: PANTOPRAZOLE SODIUM 40 MG/VIAL (PROTONIX) IVP SCH ×2 (08:00→20:36)
--- NOTE | 2019-07-26 08:00 | NUR ---
initial notes rec patient awake opens eyes but non verbally responsive at this time. ivf infusing well on the l upper arm picc line. no infiltration noted. resp easy and unlabored. no sob noted. with o2 at 2 liters via nasal cannula. bed to the lowest position and side rails up and locked. call light within reached and bed alarm is activated. will continue to monitor patient.
[2019-07-26] MEDS: LINEZOLID 300 ML IV SCH ×2 (08:01→20:36)
[2019-07-26 08:31] VITALS: BP_SYST 123
[2019-07-26] MEDS ORDERED: KETAMINE HCL 500 MG/10 ML VIAL ONE (08:57)
--- NOTE | 2019-07-26 09:00 | NUR ---
rounds pt was taken to sx for colonoscopy under mod sedation via bed. nob noted.
[2019-07-26] MEDS ORDERED: PROPOFOL 200MG/ 20ML VIAL (DIPRIVAN) IV ONE (09:40)
[2019-07-26] MEDS ORDERED: LR 1,000 ML IV.SOLN IV ONE (09:40)
[2019-07-26] MEDS ORDERED: MIDAZOLAM HCL 5 MG/ML VIAL (VERSED) IV ONE (09:40)
[2019-07-26] MEDS ORDERED: ONDANSETRON HCL 4 MG/2 ML VIAL IVP ONE (09:40)
[2019-07-26] MEDS ORDERED: ONDANSETRON HCL 4 MG/2 ML VIAL IVP PRN (09:45)
[2019-07-26] MEDS ORDERED: MORPHINE 4 MG/ML INJ. SYRINGE IVP PRN (09:45)
[2019-07-26] MEDS: LevALBUTEROL HCL 1.25 MG/0.5 ML *CONC.* VIAL.NEB (XOPENEX CONC.) INH SCH ×2 (10:23→22:33)
--- NOTE | 2019-07-26 10:34 | NUR ---
rounds pt is back from colonoscopy via bed. no sob noted.
[2019-07-26 11:12] VITALS: BP_SYST 105
[2019-07-26] MEDS: BALSAM PERU/CASTOR OIL 60 GM OINT...G. TP SCH (12:32)
[2019-07-26 15:11] VITALS: BP_SYST 103
--- NOTE | 2019-07-26 15:46 | NUR ---
Nutrition F/U RD reviewed pt's current EMR record including diet Hx, physician notes, nursing notes, pertinent labs/meds/procedures, care trends, and care activity. Admission Dx: Abd fistula Pt is s/p exploratory laparotomy w/ peritonitis and enterocutaneous fistula, pneumonia per physician notes PMH: C. 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 Pt seen sleeping in bed w/ TPN/lipids infusing as per physician/pharmacy order. Per RN, pt may have possible Sx; awaiting surgeon rounds. Current nutrition support is adequate/appropriate. Estimated Energy Expenditure (kcals/day) 1700 kcal (MSJ x 1.1 x 1.3 for wound healing) Estimated Protein Required (g/day) 55-83 gm/day (1-1.5 gmkg IBW for wound healing) Estimated Fluid Required (l/day) 1.7 L/day (30ml/kg IBW for maintenance) Problem/Etiology/Signs/Symptoms Altered nutrition-related labs r/t endocrine dysfunction AEB elevated BG and POC BG lab values. *ongoing Altered GI function r/t abd fistula AEB inability to tolerate PO intake and need for nutrition support. *ongoing Expected Outcomes/Goals Monitor TPN tolerance and intake w/ goal of pt meeting at least 100% of estimated nutritional needs, labs trending WNL, normal GI function, skin integrity/wt maintenance. Dietitian Recommendations * Recommend continuing NPO * Recommend continuing TPN D30%, AA10% at 70 ml/hr (goal rate), IL20% at 10 ml/hr via central line Provides: 1673 kcal/day, 84 gm protein/day, 1920 ml total volume/day, and GIR 3.9 gm CHO/kg/min Meets: 98% of estimated caloric needs and 101% of upper end of estimated protein needs Follow Up High Risk: F/U in 2-3 days
--- NOTE | 2019-07-26 15:57 | NUR ---
Dietitian Recommendations * Recommend continuing NPO * Recommend continuing TPN D30%, AA10% at 70 ml/hr (goal rate), IL20% at 10 ml/hr via central line Provides: 1673 kcal/day, 84 gm protein/day, 1920 ml total volume/day, and GIR 3.9 gm CHO/kg/min Meets: 98% of estimated caloric needs and 101% of upper end of estimated protein needs LP, RD Please refer to Nutrition F/U for details.
--- NOTE | 2019-07-26 17:17 | NUR ---
rounds dressing changed on the abdominal incision site done. noted with small amount of greenish drainage. no hypo hyperglycemic reaction noted.
--- NOTE | 2019-07-26 18:40 | NUR ---
closing notes pt is asleep. no sob noted,. ivf of tpn, lipids and ns infusing well through the picc line. no infiltration noted. bed to the lowest position and side rails up and locked. stable and needs attended.
--- NOTE | 2019-07-26 19:55 | NUR ---
OPENING NOTES Patient is resting in bed, awake, has a flat affect, breathing evenly and nonlabored on 6L of oxygen via simple mask. Patient has an PICC line on the ERICH, dressing change due on 08/02/2019, patent and benign, no s/s of infection or infiltration noted at this time. IVF, TPN, and lipids running, patient is tolerating it well. Patient has a Strickland catheter, secured and draining by gravity. Educated patient on plan of care, fall/safety/aspiration precautions, and call light system, patient unable to state understanding due to cognitive limitations. No s/s of distress at this time, no other needs at this time. Fall/safety/aspiration precautions. Will continue to monitor.
[2019-07-26 20:30] VITALS: BP_SYST 103
[2019-07-26] MEDS: FAT EMULSIONS 250 ML IV SCH (20:37)
--- NOTE | 2019-07-26 20:40 | NUR ---
MEDICATION/ROUNDS Patient is resting in bed, awake, has a flat affect, breathing evenly and nonlabored on 6L of oxygen via simple mask. Educated patient on due medications, patient unable to state understanding due to cognitive limitations. Administered due medications, replaced TPN and lipids, patient is tolerating them well. No s/s of distress at this time, no other needs at this time. Fall/safety/aspiration precautions. Will continue to monitor.
[2019-07-26] MEDS ORDERED: [UNRECOGNIZED DRUG - OTHER] IV SCH ×10 (21:00)
[2019-07-26] MEDS ORDERED: SODIUM CHLORIDE IV SCH ×10 (21:00)
[2019-07-26] MEDS ORDERED: TPN CENTRAL IV SCH ×10 (21:00)
[2019-07-26] MEDS ORDERED: POTASSIUM CHLORIDE IV SCH ×10 (21:00)
--- NOTE | 2019-07-26 22:35 | NUR ---
ROUNDS Patient is resting in bed, eyes closed, breathing evenly and nonlabored on 6L of oxygen via simple mask. No s/s of distress at this time, no other needs at this time. Fall/safety/aspiration precautions. Will continue to monitor.
[2019-07-27] VITALS: BP_SYST 108
[2019-07-27] MEDS: 0.45% NACL 1,000 ML IV SCH ×2 (00:09→20:59)
[2019-07-27] MEDS: INSULIN REGULAR, HUMAN 100 UNITS/ML, 10 ML VIAL (humuLIN R) SUBCUT PRN ×4 (00:09→17:35)
--- NOTE | 2019-07-27 00:33 | NUR ---
MEDICATION/ROUNDS Patient is resting in bed, eyes closed, breathing evenly and nonlabored, RT changed oxygen to 3L via NC . BS checked, coverage needed. Educated patient on due medication, patient unable to state understanding due to cognitive limitations. Administered due IV medication, patient is tolerating it well. No s/s of distress at this time, no other needs at this time. Fall/safety/aspiration precautions. Will continue to monitor.
--- NOTE | 2019-07-27 02:40 | NUR ---
ROUNDS Patient asleep, breathing is even and unlabored, remains on 02 3L NC, repositioned and turned with pillow support, bilateral heels offloaded with pillow support, safety and isolation precautions in place. Will monitor.
--- NOTE | 2019-07-27 04:20 | NUR ---
ROUNDS Patient is resting in bed, eyes closed, breathing evenly and nonlabored on 3L of oxygen via NC. No s/s of distress at this time, no other needs at this time. Fall/safety/aspiration precautions. Will continue to monitor.
[2019-07-27] MEDS: AMPICILLIN SODIUM/SULBACTAM NA 1.5 GM in NS 50 ML IV SCH ×6 (05:51→23:55)
--- NOTE | 2019-07-27 06:00 | NUR ---
CLOSING NOTES Patient is resting in bed, eyes closed, breathing evenly and nonlabored, RT changed oxygen to 3L via NC . Wound care done, hygiene care performed. BS checked, coverage needed. Educated patient on due medication, patient unable to state understanding due to cognitive limitations. Administered due IV medication, patient is tolerating it well. No s/s of distress at this time, no other needs at this time. Fall/safety/aspiration precautions. Will endorse care to morning shift RN.
[2019-07-27] MEDS: LevALBUTEROL HCL 1.25 MG/0.5 ML *CONC.* VIAL.NEB (XOPENEX CONC.) INH SCH ×3 (07:11→23:24)
[2019-07-27 07:44] VITALS: BP_SYST 126
--- NOTE | 2019-07-27 07:50 | NUR ---
Opening notes Received pt in bed, pt is aa, flat affect, non verbal, no s/s of pain, no sob, breathing tachypneic and shallow. o2 sat 98% R.T. aware. No fever. safety precaution in place. call light in reach. bed alarm on. will cont to monitor.
[2019-07-27 07:55] LABS: CALCIUM 7.4 mg/dL (8.4-11.0); CREATININE 0.39 mg/dL (0.55-1.30); PHOSPHORUS 2.4 mg/dL (2.7-4.5); POTASSIUM 3.5 mmol/L (3.5-5.1)
[2019-07-27] MEDS: PANTOPRAZOLE SODIUM 40 MG/VIAL (PROTONIX) IVP SCH ×2 (08:04→21:04)
[2019-07-27] MEDS: LINEZOLID 300 ML IV SCH ×2 (08:04→21:00)
[2019-07-27] MEDS: BALSAM PERU/CASTOR OIL 60 GM OINT...G. TP SCH (08:05)
--- NOTE | 2019-07-27 09:18 | NUR ---
DR KNOWLES HERE AND SEEN PATIENT. SPOKE WITH PT'S DAUGHTER, MARI, OVER THE PHONE. MD TALKED ABOUT POC AND PT'S STATUS.
--- NOTE | 2019-07-27 09:37 | NUR ---
MD SÁNCHEZ PAGED JESSI BAUTISTA AT [phone] SPOKE WITH .
--- NOTE | 2019-07-27 09:42 | NUR ---
Dr toure made aware that per radiologist, dr fuller, they cannot do the barium enema her ordered. no new order given. Addendum: 07/27/19 at 0947 by Wili Ribera RN correction: ..he ordered...
[2019-07-27 12:30] VITALS: BP_SYST 116
--- NOTE | 2019-07-27 16:05 | NUR ---
Discharge Planning: DCP faxed pt referral to [facility] (f [phone] p [phone]) DCP to follow up
[2019-07-27 16:28] VITALS: BP_SYST 106
--- NOTE | 2019-07-27 18:12 | NUR ---
RECEIVED CALL FROM MARIAMA, REQUESTING MORE PATIENT INFORMATION. MARIAMA SAID POSSIBLE ACCEPT IN AM.
--- NOTE | 2019-07-27 18:38 | NUR ---
CLOSING NOTES, PT REMAINED STABLE, NO FEVER. PICC INFUSING WELL WITH TPN, LIPIDS AND IVF. ALL MEDS GIVEN. WILL ENDORSE TO NIGHT NURSE.
--- NOTE | 2019-07-27 19:45 | NUR ---
OPENING NOTES Patient is resting in bed, awake, has a flat affect, breathing evenly on room air. Patient has an PICC line on the ERICH, dressing change due on 08/02/2019, patent and benign, no s/s of infection or infiltration noted at this time. IVF, TPN, and lipids running, patient is tolerating it well. Patient has a Strickland catheter, secured and draining by gravity. Educated patient on plan of care, fall/safety/aspiration precautions, and call light system, patient unable to state understanding due to cognitive limitations. No s/s of distress at this time, no other needs at this time. Fall/safety/aspiration precautions. Will continue to monitor.
[2019-07-27 20:05] VITALS: BP_SYST 112
[2019-07-27] MEDS ORDERED: SODIUM CHLORIDE IV SCH ×10 (21:00)
[2019-07-27] MEDS ORDERED: [UNRECOGNIZED DRUG - OTHER] IV SCH ×10 (21:00)
[2019-07-27] MEDS ORDERED: TPN CENTRAL IV SCH ×10 (21:00)
[2019-07-27] MEDS ORDERED: POTASSIUM CHLORIDE IV SCH ×10 (21:00)
[2019-07-27] MEDS: FAT EMULSIONS 250 ML IV SCH (21:05)
--- NOTE | 2019-07-27 21:06 | NUR ---
MEDICATION/ROUNDS Patient is resting in bed, awake, breathing evenly and nonlabored on room air. Educated patient on due medications, patient unable to state understanding due to cognitive limitations. Administered due medications, replaced TPN and lipids, patient is tolerating them well. No s/s of distress at this time, no other needs at this time. Fall/safety/aspiration precautions. Will continue to monitor.
--- NOTE | 2019-07-27 23:00 | NUR ---
ROUNDS Patient is resting in bed, eyes closed, breathing evenly and nonlabored on room air. No s/s of distress at this time, no other needs at this time. Fall/safety/aspiration precautions. Will continue to monitor.
[2019-07-28] VITALS (7 sets, daily range): BP systolic 108–133
[2019-07-28] MEDS: INSULIN REGULAR, HUMAN 100 UNITS/ML, 10 ML VIAL (humuLIN R) SUBCUT PRN ×4 (00:03→17:24)
--- NOTE | 2019-07-28 00:40 | NUR ---
MEDICATION/ROUNDS Patient is resting in bed, awake, breathing evenly and nonlabored on room air. BS checked, coverage needed. Educated patient on due medication, patient unable to state understanding due to cognitive limitations. Administered due medication, patient is tolerating it well. Hygiene care and wound care done, patient tolerated it well. No s/s of distress at this time, no other needs at this time. Fall/safety/aspiration precautions. Will continue to monitor.
--- NOTE | 2019-07-28 02:08 | NUR ---
ROUNDS Patient is resting in bed, eyes closed, breathing evenly and nonlabored on room air. No s/s of distress at this time, no other needs at this time. Fall/safety/aspiration precautions.
[2019-07-28] MEDS: HYDROmorphone 1 MG INJ. 1 MG/ML AMPUL IVP PRN ×2 (03:19→15:51)
--- NOTE | 2019-07-28 03:19 | NUR ---
PAIN MED GIVEN Patient was moaning and appeared to be in pain 8/10 FLACC. Vital signs stable. Educated patient regarding pain medication, patient unable to state understanding due to cognitive limitations. Administered pain medication, patient tolerated it well. Fall/safety/aspiration precautions, will continue to monitor.
--- NOTE | 2019-07-28 03:49 | NUR ---
REASSESSMENT/ROUNDS Patient is resting in bed, eyes closed, breathing evenly and nonlabored on 2L NC. Vital signs stable, patient no longer moaning and in pain. No s/s of distress at this time, no other needs at this time. Fall/safety/aspiration precautions.
--- NOTE | 2019-07-28 05:15 | NUR ---
ROUNDS Patient is resting in bed, eyes closed, breathing evenly and nonlabored on 2L oxygen via NC. No s/s of distress at this time, no other needs at this time. Fall/safety/aspiration precautions. Will continue to monitor.
[2019-07-28] MEDS: AMPICILLIN SODIUM/SULBACTAM NA 1.5 GM in NS 50 ML IV SCH ×3 (06:11→17:22)
--- NOTE | 2019-07-28 06:18 | NUR ---
CLOSING NOTES Patient is resting in bed, eyes closed, breathing evenly and nonlabored on oxygen 2L via NC. BS checked, coverage needed. Educated patient on due medication, patient unable to state understanding due to cognitive limitations. Administered due IV medication, patient is tolerating it well. No s/s of distress at this time, no other needs at this time. Fall/safety/aspiration precautions. Will endorse care to morning shift RN.
--- NOTE | 2019-07-28 07:30 | NUR ---
INITIAL NOTE PT RESTING IN BED, PT ON 2L NASAL CANNULA. IVF INFUSING WELL. ALBERTO DRAINING TO GRAVITY. CALL LIGHT WITHIN REACH, BED IN LOW AND LOCKED POSITION WITH BED ALARM ON. ISOLATION PRECAUTIONS IN PLACE.
[2019-07-28 07:34] LABS: CALCIUM 7.8 mg/dL (8.4-11.0); CREATININE 0.33 mg/dL (0.55-1.30); TOTAL BILIRUBIN 0.3 mg/dL (0.0-1.0)
[2019-07-28] MEDS: LevALBUTEROL HCL 1.25 MG/0.5 ML *CONC.* VIAL.NEB (XOPENEX CONC.) INH SCH ×2 (07:34→14:14)
[2019-07-28] MEDS: PANTOPRAZOLE SODIUM 40 MG/VIAL (PROTONIX) IVP SCH (09:10)
[2019-07-28] MEDS: LINEZOLID 300 ML IV SCH (09:10)
[2019-07-28] MEDS: BALSAM PERU/CASTOR OIL 60 GM OINT...G. TP SCH (09:11)
--- NOTE | 2019-07-28 09:30 | NUR ---
SUCTIONING RT AT BEDSIDE EXAMINING PT. PT TOLERATED WELL. O2 SAT BACK UP TO 100% ON 3L NC. WILL CONTINUE TO MONITOR.
--- NOTE | 2019-07-28 11:30 | NUR ---
RN ROUNDS REPOSITIONED PT FOR COMFORT. NO ACUTE DISTRESS NOTED, BREATHING EVEN AND UNLABORED. WILL CONTINUE TO MONITOR.
--- NOTE | 2019-07-28 12:21 | NUR ---
RN ROUNDS PT RESTING IN BED, ON 3L NC TOLERATING WELL. NO CHANGE IN ASSESSMENT, WILL CONTINUE TO MONITOR.
--- NOTE | 2019-07-28 13:25 | NUR ---
DC Planning: Per Kimberley at [facility]: the pt is accepted pending bed assignment.Kimberley # [phone]. Addendum: 07/28/19 at 1406 by Tigre Bowman RN Phoned pt's dtr Tiffanie # [phone] : informing pt is to be transferred to [facility] . Dtr does not want pt going to any [facility]. She was not understand why pt is going back and forth from [facility] to [facility] since May 2019. The pt is a resident at [facility] and has not going back since. CM updated and explained POC in details and the reasons to transfer pt to [place]. Per dr. Bains and dr. Lopez : Today the patient is stable. There is hardly any drainage coming out of it, but there is still some fecal material on the dressing. Per dr. Lopez note:Impression is highly suggestive of colocutaneous fistula. Itis difficult to tell what part of the colon is it because examination was kind of difficult and all landmarks were not very prominent, especially also the bowel prep was not very clean and I think the patient will need to have aGastrografin enema or a barium enema done to evaluate the part of the colon and then we will decide what to do after that.Dr Bains : to keep pt npo and continue TPN for 2 weeks at [place] then bring pt back for reevaluation. Addendum: 07/28/19 at 1433 by Tigre Bowman RN >> Continued: Tiffanie stated understand the plan of care now. She wants to talk to pt's son and other family for possible transfer pt out to [facility] where is closer to her. This due to her dissatisfaction about nursing communication at [facility]. CM explained the lateral transfer process and out of pocket transportation cost per medicare guideline. Tiffanie will call me back with her decision.
--- NOTE | 2019-07-28 14:20 | NUR ---
Egg Breaker: met with pt. to conduct a DCPA. SIX SIGMA BLACK TRAINER was told by Rn that pt. is not going to participate in the interview as she is non-responsive, looks in a daze and is non-verbal. SIX SIGMA BLACK TRAINER called and spoke to daughter, Tiffanie Koehler. She was able to fill in the blanks re. the DCPA. Tiffanie expressed frustration re. a language barrier between her and the PCP/Attending. Daughter stated she had so many questions re. her mom's procedure, POC, prognosis. SIX SIGMA BLACK TRAINER stated the best person to clarify is the DrEmiliana and or the Rn, Eve. After the interview, SIX SIGMA BLACK TRAINER tried several times to reach Babatunde Prado as well as the charge entry. , but to no avail. SIX SIGMA BLACK TRAINER asked daughter to try calling back in 15 minutes. SIX SIGMA BLACK TRAINER will remain available as needed. Pt. will be going back to [place] and then she will be able to return to [facility].
--- NOTE | 2019-07-28 14:31 | NUR ---
RN ROUNDS PT RESTING ON 3L NC, TOLERATING WELL. BREATHING EVEN AND UNLABORED. WILL CONTINUE TO MONITOR.
--- NOTE | 2019-07-28 14:40 | NUR ---
Grab Jack Man: met with pt. and to conduct a DCPA. PLANT PULLER introduced self. Pt. stated she felt a little groggy as she just had her gall bladder removed 3 hours ago. She stated if all goes well, she will be d/c tomorrow. Her will ensure pt. if following Dr. sun. Pt. was friendly and took an active role in the interview. Pt. stated she did not use any medical equipment at home. Pt denied needing any MH interventions and denied ever feeling suicidal. Pt. stated she did not need anything. PLANT PULLER will remain available as needed. Addendum: 08/01/19 at 1152 by Claudia Mckeon LCSW Error Wrong Patient
--- NOTE | 2019-07-28 15:12 | NUR ---
DC Planning : [facility] bed assignment # 315 A;per Kimberley. The transfer is pending pt's tresa/Tiffanie agreement. Kimberley will contact Tiffanie as well. Addendum: 07/28/19 at 1627 by Tigre Bowman RN >> Called back from [place], orion Moreno/tresa agreed with the transfer. CM confirmed with Tiffanie stated agreed with the transfer as well. -- [facility] chang for JERRY Cowart made aware [facility] automotive fleet supervisor time is at 1930. >> [facility] set up with Malina/dispatcher # [phone].
--- NOTE | 2019-07-28 16:30 | NUR ---
WOUND CARE/PICTURES WOUND CARE DONE. PT TOLERATED WELL. NO ACUTE DISTRESS NOTED, DURING OR AFTER. REFER TO [facility] FOR TREATMENT. PICTURES TAKEN.
[2019-07-28] MEDS: 0.45% NACL 1,000 ML IV SCH (17:21)
--- NOTE | 2019-07-28 19:01 | NUR ---
[facility] REPORT GIVEN TO NE. PT TO BE PICKED UP AT 7:30PM AND TAKEN TO ROOM 315A.
--- NOTE | 2019-07-28 19:04 | NUR ---
CLOSING NOTE PT RESTING IN BED, NO ACUTE DISTRESS NOTED, BREATHING EVEN AND UNLABORED. PT ON 3L NC. IVF INFUSING WELL. ALBERTO DRAINING TO GRAVITY. ISOLATION PRECAUTIONS IN PLACE. CALL LIGHT WITHIN REACH, BED IN LOW AND LOCKED POSITION WITH BED ALARM ON. ALL NEEDS MET THROUGHOUT SHIFT. WILL CONTINUE TO MONITOR UNTIL PT CARE IS ENDORSED TO MAINTENANCE PORTER RN.
--- NOTE | 2019-07-28 19:50 | NUR ---
D/C Patient Patient given medication reconciliation form and D/C instructions. Exit Care provided. Patient is nonverbal, family verbalized understanding. discussed with patient and her family the results and treatment provided. She is bring transported via gurney by [facility] at this time. Patient in stable condition, ID band removed. PICC line is sterile locked and secured per orders. Rx of patient given. Patient and her family educated on pain management. All belongings sent with patient.
[2019-07-28] MEDS ORDERED: SODIUM CHLORIDE IV SCH ×10 (21:00)
[2019-07-28] MEDS ORDERED: [UNRECOGNIZED DRUG - OTHER] IV SCH ×10 (21:00)
[2019-07-28] MEDS ORDERED: TPN CENTRAL IV SCH ×10 (21:00)
[2019-07-28] MEDS ORDERED: POTASSIUM CHLORIDE IV SCH ×10 (21:00)
== END 2019-07-28 19:50 | DRG 862 ==
LOC: SED 20:49 → STU 23:52
PROVIDERS: ADMIT Family Medicine; ATTEND Family Medicine
PROC: 0DJD8ZZ Inspection of Lower Intestinal Tract, Via Natural or Artificial Opening Endoscopic (ICD-10-PCS; principal; 2019-07-26 08:30)
DX: T81.43XA Infection following a procedure, organ and space surgical site, initial encounter (principal); L89.154 Pressure ulcer of sacral region, stage 4; K65.1 Peritoneal abscess; J15.9 Unspecified bacterial pneumonia; E43 Unspecified severe protein-calorie malnutrition; K63.2 Fistula of intestine; I69.351 Hemiplegia and hemiparesis following cerebral infarction affecting right dominant side; N39.0 Urinary tract infection, site not specified; G93.40 Encephalopathy, unspecified; D64.9 Anemia, unspecified; E11.9 Type 2 diabetes mellitus without complications; E78.5 Hyperlipidemia, unspecified; G30.9 Alzheimer's disease, unspecified; Y83.8 Other surgical procedures as the cause of abnormal reaction of the patient, or of later complication, without mention of misadventure at the time of the procedure; F02.80 Dementia in other diseases classified elsewhere, unspecified severity, without behavioral disturbance, psychotic disturbance, mood disturbance, and anxiety; I10 Essential (primary) hypertension; Y95 Nosocomial condition; Z86.19 Personal history of other infectious and parasitic diseases; Z90.49 Acquired absence of other specified parts of digestive tract; Z88.8 Allergy status to other drugs, medicaments and biological substances; Z79.4 Long term (current) use of insulin; Z79.899 Other long term (current) drug therapy; Z87.81 Personal history of (healed) traumatic fracture; Z68.24 Body mass index [BMI] 24.0-24.9, adult; Y92.89 Other specified places as the place of occurrence of the external cause
CPT/HCPCS: 36415; 71045; 80048; 80053; 80202-TC; 81000-TC; 82962; 83605; 83735-TC; 84100-TC; 84478-TC; 84484; 85025; 85610-TC; 85730-TC; 87040-TC; 87081; 87086; 87186-TC; 87230-TC; 93005; 94640; 94760; 99285; C9113; G0378; J0295; J1170; J1450; J1815; J2020; J2185; J2250; J2405; J2704; J3010; J3370; J3475; J3480; J7030; J7050; J7120; J7131; J7612; Q9964; Q9967

== ENCOUNTER 2019-08-22 09:36 | Inpatient (IN) | payer OTHER, MEDICAID ==
[~2019-08-22] VITALS: Ht 149.9 cm; Wt 49.0 kg
[~2019-08-22 09:36] MED LIST changes: -CLOP75TA32 GT; -INSU100V9 SQ; -LIP40 GT; -MEMA5TAB GT; -MERO500V IV; -METO25TA6 GT
[2019-08-22 09:51] VITALS: BP_SYST 126
[2019-08-22 10:34] LABS: BASOPHILS % (AUTO) 0.3 % (0.0-2.0); EOSINOPHILS % (AUTO) 0.2 % (0.0-4.0); HEMATOCRIT 33.1 % (36-48); HEMOGLOBIN 10.7 g/dL (12.0-16.0); LYMPHOCYTES # (AUTO) 1.4 K/uL (1.0-5.5); LYMPHOCYTES % (AUTO) 12.9 % (20.5-51.5); MEAN CORPUSCULAR HEMOGLOBIN 31 pg (27-31); MEAN CORPUSCULAR HGB CONC 32 % (32-36); MEAN CORPUSCULAR VOLUME 97 fL (79.0-98.0); MONOCYTES # (AUTO) 0.6 K/uL (0.0-1.0); MONOCYTES % (AUTO) 5.9 % (1.7-9.3); NEUTROPHILS # (AUTO) 8.8 K/uL (1.8-7.7); NEUTROPHILS % (AUTO) 80.7 % (40.0-70.0); PLATELET COUNT (AUTO) 396 K/uL (130-430); RED BLOOD CELL COUNT(AUTO) 3.43 MIL/uL (4.2-6.2); RED CELL DISTRIBUTION WIDTH 17.8 % (9.0-15.0)
[2019-08-22 10:46] LABS: CALCIUM 9.1 mg/dL (8.4-11.0); CREATININE 0.49 mg/dL (0.55-1.30); POTASSIUM 3.8 mmol/L (3.5-5.1)
[2019-08-22 10:50] LABS: INR 1.4 (0.8-1.2); PROTHROMBIN TIME 13.7 SECS (9.5-12.5)
[2019-08-22 10:58] LABS: BILIRUBIN,URINE NEGATIVE (NEGATIVE); BLOOD, URINE 1+ (NEGATIVE); CLARITY/URINE SL CLOUDY (CLEAR); COLOR,URINE YELLOW (YELLOW); GLUCOSE,URINE NEGATIVE (NEGATIVE); KETONES,URINE NEGATIVE (NEGATIVE); LEUKOCYTE ESTERASE ,URINE NEGATIVE (NEGATIVE); NITRITE, URINE NEGATIVE (NEGATIVE); PROTEIN URINE 1+ (NEGATIVE); UROBILINOGEN,URINE 0.2 (0.2-1.0)
[2019-08-22 11:05] LABS: ALBUMIN 1.7 g/dL (3.4-4.8); TOTAL BILIRUBIN 0.3 mg/dL (0.0-1.0)
[2019-08-22 11:08] LABS: BACTERIA,URINE FEW /HPF (None Seen); WBC,URINE 0-3 /HPF (0-3)
[2019-08-22] MEDS ORDERED: SSREG SUBCUT (11:26)
[2019-08-22] MEDS ORDERED: PIPE3.379 IV (11:26)
[2019-08-22] MEDS ORDERED: INSU100V9 SQ (11:26)
[2019-08-22] MEDS ORDERED: tpn IV (12:07)
[2019-08-22] MEDS ORDERED: POTASSIUM CHLORIDE 20 MEQ in NACL 0.9% 1,000 ML IV SCH (12:15)
[2019-08-22] MEDS: *TPN PER PHARMACY XX SCH (12:15)
[2019-08-22] MEDS ORDERED: fentaNYL CITRATE 250 MCG/5 ML AMP IV ONE (12:21)
[2019-08-22] MEDS ORDERED: MIDAZOLAM HCL 5 MG/5 ML VIAL IVP ONE (12:21)
[2019-08-22] MEDS ORDERED: PHENYLEPHRINE HCL 10 MG/ML VIAL (NEOSYNEPHRINE) IV ONE (12:21)
[2019-08-22] MEDS ORDERED: NEOSTIGMINE METHYLSULFATE 1 MG/ML, 10 ML VIAL IVP ONE (12:21)
[2019-08-22] MEDS ORDERED: NS IRRIG SOLN 1000 ML IR ONE (12:21)
[2019-08-22] MEDS ORDERED: DESFLURANE 15 MIN GAS INH ONE (12:21)
[2019-08-22] MEDS ORDERED: NS 1000 ML IV.SOLN IV ONE (12:21)
[2019-08-22] MEDS ORDERED: ROCURONIUM BROMIDE 10 MG/ML (ZEMURON) IV ONE (12:21)
[2019-08-22] MEDS ORDERED: NALOXONE HCL 2 MG/2 ML SYR (NARCAN) IV ONE (12:21)
[2019-08-22] MEDS ORDERED: GLYCOPYRROLATE 0.2 MG/ML VIAL IJ ONE (12:21)
[2019-08-22] MEDS ORDERED: PROPOFOL 200MG/ 20ML VIAL (DIPRIVAN) IV ONE (12:21)
[2019-08-22 12:32] LABS: PHOSPHORUS 3.3 mg/dL (2.7-4.5)
[2019-08-22 13:16] VITALS: BP_SYST 108
[2019-08-22] MEDS: POTASSIUM CHLORIDE 20 MEQ in NACL 0.9% 1,000 ML IV SCH (14:08)
[2019-08-22 15:32] VITALS: BP_SYST 117
[2019-08-22] MEDS ORDERED: LevALBUTEROL HCL 1.25 MG/0.5 ML *CONC.* VIAL.NEB (XOPENEX CONC.) INH PRN (18:45)
[2019-08-22 20:00] VITALS: BP_SYST 111
[2019-08-22] MEDS ORDERED: MAGNESIUM SULFATE IV SCH ×9 (21:00)
[2019-08-22] MEDS ORDERED: SODIUM ACETATE IV SCH ×9 (21:00)
[2019-08-22] MEDS ORDERED: TPN CENTRAL IV SCH ×9 (21:00)
[2019-08-22] MEDS ORDERED: [UNRECOGNIZED DRUG - OTHER] IV SCH ×9 (21:00)
[2019-08-22] MEDS ORDERED: NA PHOS IV SCH ×9 (21:00)
[2019-08-22 21:37] VITALS: BP_SYST 117
[2019-08-22] MEDS: PIPERACILLIN/TAZO 3.375/DEX-IS 50 ML IV SCH (21:41)
[2019-08-22] MEDS ORDERED: PIPERACILLIN/TAZOBACTAM 3.375 GM/DEX-IS 50 ML PIGGYBACK IV SCH ×2 (22:00)
[2019-08-22] MEDS: LevALBUTEROL HCL 1.25 MG/0.5 ML *CONC.* VIAL.NEB (XOPENEX CONC.) INH SCH (22:00)
[2019-08-22] MEDS: metroNIDAZOLE 500 mg/NS 100 ML IV SCH (22:30)
[2019-08-23] MEDS: INSULIN REGULAR, HUMAN 100 UNITS/ML, 10 ML VIAL (humuLIN R) SUBCUT PRN ×2 (00:29→06:23)
[2019-08-23 01:02] VITALS: BP_SYST 121
[2019-08-23] MEDS: LevALBUTEROL HCL 1.25 MG/0.5 ML *CONC.* VIAL.NEB (XOPENEX CONC.) INH SCH ×4 (03:45→19:45)
[2019-08-23] MEDS: POTASSIUM CHLORIDE 20 MEQ in NACL 0.9% 1,000 ML IV SCH (05:22)
[2019-08-23] MEDS: PIPERACILLIN/TAZO 3.375/DEX-IS 50 ML IV SCH ×3 (05:22→22:33)
[2019-08-23] MEDS: metroNIDAZOLE 500 mg/NS 100 ML IV SCH ×3 (06:22→22:25)
[2019-08-23 08:40] LABS: ALBUMIN 1.4 g/dL (3.4-4.8); CALCIUM 8.4 mg/dL (8.4-11.0); CREATININE 0.5 mg/dL (0.55-1.30); POTASSIUM 3.6 mmol/L (3.5-5.1); TOTAL BILIRUBIN 0.3 mg/dL (0.0-1.0)
[2019-08-23] MEDS: *TPN PER PHARMACY XX SCH (09:00)
[2019-08-23] MEDS: BALSAM PERU/CASTOR OIL 60 GM OINT...G. TP SCH (09:00)
[2019-08-23] MEDS: INSULIN GLARGINE 100 UNITS/ML 10 ML VIAL SQ SCH (09:30)
[2019-08-23] MEDS ORDERED: DIATR MEGLU/DIATRIZ SOD 30 ML SOLUTION PO ONE (10:43)
[2019-08-23] MEDS ORDERED: IOHEXOL 50 ML IV ONE (11:10)
[2019-08-23 12:52] VITALS: BP_SYST 116
[2019-08-23 16:13] VITALS: BP_SYST 113
[2019-08-23] MEDS ORDERED: [UNRECOGNIZED DRUG - OTHER] IV SCH ×9 (21:00)
[2019-08-23] MEDS ORDERED: SODIUM ACETATE IV SCH ×9 (21:00)
[2019-08-23] MEDS ORDERED: TPN CENTRAL IV SCH ×9 (21:00)
[2019-08-23] MEDS ORDERED: POTASSIUM ACETATE IV SCH ×9 (21:00)
[2019-08-24] MEDS: POTASSIUM CHLORIDE 20 MEQ in NACL 0.9% 1,000 ML IV SCH ×3 (00:03→20:07)
[2019-08-24] MEDS: LevALBUTEROL HCL 1.25 MG/0.5 ML *CONC.* VIAL.NEB (XOPENEX CONC.) INH SCH ×4 (01:50→22:48)
[2019-08-24 02:11] VITALS: BP_SYST 148
[2019-08-24] MEDS: metroNIDAZOLE 500 mg/NS 100 ML IV SCH ×3 (06:01→21:53)
[2019-08-24] MEDS: PIPERACILLIN/TAZO 3.375/DEX-IS 50 ML IV SCH ×3 (06:09→22:55)
[2019-08-24] MEDS: INSULIN REGULAR, HUMAN 100 UNITS/ML, 10 ML VIAL (humuLIN R) SUBCUT PRN (06:22)
[2019-08-24 07:04] LABS: ALBUMIN 1.4 g/dL (3.4-4.8); CALCIUM 8.4 mg/dL (8.4-11.0); CREATININE 0.51 mg/dL (0.55-1.30); PHOSPHORUS 2.2 mg/dL (2.7-4.5); POTASSIUM 3.1 mmol/L (3.5-5.1); TOTAL BILIRUBIN 0.2 mg/dL (0.0-1.0)
[2019-08-24] MEDS ORDERED: KCL 40 mEq in 100 mL (PREMIX) 100 ML IV ONE (08:30)
[2019-08-24] MEDS ORDERED: KCL 20 mEq in 100 mL (PREMIX) 100 ML IV ONE (08:30)
[2019-08-24] MEDS: *TPN PER PHARMACY XX SCH (09:00)
[2019-08-24] MEDS: BALSAM PERU/CASTOR OIL 60 GM OINT...G. TP SCH (09:00)
[2019-08-24] MEDS ORDERED: K PHOS IV ONE (10:00)
[2019-08-24] MEDS ORDERED: NS IV ONE (10:00)
[2019-08-24] MEDS: INSULIN GLARGINE 100 UNITS/ML 10 ML VIAL SQ SCH (10:43)
[2019-08-24] MEDS ORDERED: POTASSIUM ACETATE IV SCH ×36 (11:15→21:00)
[2019-08-24] MEDS ORDERED: SODIUM ACETATE IV SCH ×36 (11:15→21:00)
[2019-08-24] MEDS ORDERED: TPN CENTRAL IV SCH ×36 (11:15→21:00)
[2019-08-24] MEDS ORDERED: [UNRECOGNIZED DRUG - OTHER] IV SCH ×27 (11:15→21:00)
[2019-08-24 12:20] VITALS: BP_SYST 130
[2019-08-24 16:25] VITALS: BP_SYST 122
[2019-08-24] MEDS ORDERED: POTASSIUM CHLORIDE 40 MEQ in NS 250 ML IV ONE (16:30)
[2019-08-24] MEDS ORDERED: [UNRECOGNIZED DRUG - OTHER] IV SCH ×9 (21:00)
[2019-08-25] VITALS (7 sets, daily range): BP systolic 118–144
[2019-08-25] MEDS: INSULIN REGULAR, HUMAN 100 UNITS/ML, 10 ML VIAL (humuLIN R) SUBCUT PRN ×4 (00:57→17:47)
[2019-08-25] MEDS: LevALBUTEROL HCL 1.25 MG/0.5 ML *CONC.* VIAL.NEB (XOPENEX CONC.) INH SCH ×4 (02:02→20:51)
[2019-08-25] MEDS: PIPERACILLIN/TAZO 3.375/DEX-IS 50 ML IV SCH ×3 (05:50→22:55)
[2019-08-25] MEDS: metroNIDAZOLE 500 mg/NS 100 ML IV SCH ×3 (06:36→22:43)
[2019-08-25 09:29] LABS: CALCIUM 8.1 mg/dL (8.4-11.0); CREATININE 0.37 mg/dL (0.55-1.30); PHOSPHORUS 2.3 mg/dL (2.7-4.5); POTASSIUM 4.3 mmol/L (3.5-5.1)
[2019-08-25] MEDS: BALSAM PERU/CASTOR OIL 60 GM OINT...G. TP SCH (09:48)
[2019-08-25] MEDS: INSULIN GLARGINE 100 UNITS/ML 10 ML VIAL SQ SCH (09:49)
[2019-08-25] MEDS: POTASSIUM CHLORIDE 20 MEQ in NACL 0.9% 1,000 ML IV SCH ×2 (17:44→22:42)
[2019-08-25] MEDS ORDERED: [UNRECOGNIZED DRUG - OTHER] IV SCH ×9 (21:00)
[2019-08-25] MEDS ORDERED: TPN CENTRAL IV SCH ×9 (21:00)
[2019-08-25] MEDS ORDERED: SODIUM ACETATE IV SCH ×9 (21:00)
[2019-08-25] MEDS ORDERED: POTASSIUM ACETATE IV SCH ×9 (21:00)
[2019-08-26 00:27] VITALS: BP_SYST 135
[2019-08-26] MEDS: INSULIN REGULAR, HUMAN 100 UNITS/ML, 10 ML VIAL (humuLIN R) SUBCUT PRN ×5 (01:08→23:55)
[2019-08-26] MEDS: LevALBUTEROL HCL 1.25 MG/0.5 ML *CONC.* VIAL.NEB (XOPENEX CONC.) INH SCH ×4 (02:03→20:05)
[2019-08-26] MEDS: PIPERACILLIN/TAZO 3.375/DEX-IS 50 ML IV SCH ×3 (06:46→21:55)
[2019-08-26] MEDS: metroNIDAZOLE 500 mg/NS 100 ML IV SCH ×3 (06:53→22:43)
[2019-08-26 08:32] VITALS: BP_SYST 145
[2019-08-26] MEDS: *TPN PER PHARMACY XX SCH (09:00)
[2019-08-26 10:21] LABS: CALCIUM 8.1 mg/dL (8.4-11.0); CREATININE 0.45 mg/dL (0.55-1.30); PHOSPHORUS 2.4 mg/dL (2.7-4.5)
[2019-08-26] MEDS: INSULIN GLARGINE 100 UNITS/ML 10 ML VIAL SQ SCH (10:31)
[2019-08-26] MEDS: BALSAM PERU/CASTOR OIL 60 GM OINT...G. TP SCH (10:32)
[2019-08-26 11:20] VITALS: BP_SYST 151
[2019-08-26] MEDS: POTASSIUM CHLORIDE 20 MEQ in NACL 0.9% 1,000 ML IV SCH (16:08)
[2019-08-26 16:55] VITALS: BP_SYST 147
[2019-08-26 20:00] VITALS: BP_SYST 120
[2019-08-26] MEDS ORDERED: POTASSIUM ACETATE IV SCH ×9 (21:00)
[2019-08-26] MEDS ORDERED: [UNRECOGNIZED DRUG - OTHER] IV SCH ×9 (21:00)
[2019-08-26] MEDS ORDERED: SODIUM ACETATE IV SCH ×9 (21:00)
[2019-08-26] MEDS ORDERED: TPN CENTRAL IV SCH ×9 (21:00)
[2019-08-27] VITALS (8 sets, daily range): BP systolic 120–154
[2019-08-27] MEDS: LevALBUTEROL HCL 1.25 MG/0.5 ML *CONC.* VIAL.NEB (XOPENEX CONC.) INH SCH ×4 (01:30→19:22)
[2019-08-27] MEDS: POTASSIUM CHLORIDE 20 MEQ in NACL 0.9% 1,000 ML IV SCH ×4 (01:59→21:02)
[2019-08-27 06:40] LABS: CALCIUM 8.2 mg/dL (8.4-11.0); CREATININE 0.43 mg/dL (0.55-1.30); PHOSPHORUS 2.4 mg/dL (2.7-4.5); POTASSIUM 4.4 mmol/L (3.5-5.1)
[2019-08-27] MEDS: PIPERACILLIN/TAZO 3.375/DEX-IS 50 ML IV SCH ×3 (06:52→22:03)
[2019-08-27] MEDS: metroNIDAZOLE 500 mg/NS 100 ML IV SCH ×3 (07:01→21:01)
[2019-08-27] MEDS: INSULIN REGULAR, HUMAN 100 UNITS/ML, 10 ML VIAL (humuLIN R) SUBCUT PRN ×3 (07:14→17:14)
[2019-08-27] MEDS: ACETAMINOPHEN 650 MG SUPP.RECT RC PRN (07:34)
[2019-08-27] MEDS: INSULIN GLARGINE 100 UNITS/ML 10 ML VIAL SQ SCH (08:38)
[2019-08-27] MEDS: BALSAM PERU/CASTOR OIL 60 GM OINT...G. TP SCH (11:31)
[2019-08-27] MEDS ORDERED: GASTROGRAFIN 120 ML ONE (13:39)
[2019-08-27] MEDS ORDERED: MAGNESIUM SULFATE IV SCH ×9 (21:00)
[2019-08-27] MEDS ORDERED: SODIUM ACETATE IV SCH ×9 (21:00)
[2019-08-27] MEDS ORDERED: NA PHOS IV SCH ×9 (21:00)
[2019-08-27] MEDS ORDERED: TPN CENTRAL IV SCH ×9 (21:00)
[2019-08-27] MEDS ORDERED: [UNRECOGNIZED DRUG - OTHER] IV SCH ×9 (21:00)
[2019-08-28] MEDS: INSULIN REGULAR, HUMAN 100 UNITS/ML, 10 ML VIAL (humuLIN R) SUBCUT PRN ×4 (00:13→18:02)
[2019-08-28 01:29] VITALS: BP_SYST 149
[2019-08-28] MEDS: LevALBUTEROL HCL 1.25 MG/0.5 ML *CONC.* VIAL.NEB (XOPENEX CONC.) INH SCH ×4 (01:52→19:51)
[2019-08-28] MEDS: PIPERACILLIN/TAZO 3.375/DEX-IS 50 ML IV SCH ×3 (05:03→21:33)
[2019-08-28] MEDS: metroNIDAZOLE 500 mg/NS 100 ML IV SCH ×3 (06:28→21:33)
[2019-08-28] MEDS: ACETAMINOPHEN 650 MG SUPP.RECT RC PRN (08:51)
[2019-08-28] MEDS: INSULIN GLARGINE 100 UNITS/ML 10 ML VIAL SQ SCH (09:04)
[2019-08-28 09:40] LABS: CALCIUM 7.5 mg/dL (8.4-11.0); CREATININE 0.41 mg/dL (0.55-1.30); PHOSPHORUS 2.5 mg/dL (2.7-4.5); POTASSIUM 3.7 mmol/L (3.5-5.1)
[2019-08-28 12:30] VITALS: BP_SYST 130
[2019-08-28] MEDS: BALSAM PERU/CASTOR OIL 60 GM OINT...G. TP SCH (12:46)
[2019-08-28] MEDS ORDERED: SODIUM ACETATE IV SCH ×20 (13:30→21:00)
[2019-08-28] MEDS ORDERED: NA PHOS IV SCH ×20 (13:30→21:00)
[2019-08-28] MEDS ORDERED: TPN CENTRAL IV SCH ×20 (13:30→21:00)
[2019-08-28] MEDS ORDERED: [UNRECOGNIZED DRUG - OTHER] IV SCH ×20 (13:30→21:00)
[2019-08-28 15:09] VITALS: BP_SYST 130
[2019-08-28 16:20] VITALS: BP_SYST 151
[2019-08-28 16:49] LABS: INR 1.5 (0.8-1.2); PROTHROMBIN TIME 14.8 SECS (9.5-12.5)
[2019-08-28 21:00] VITALS: BP_SYST 143
[2019-08-28] MEDS: POTASSIUM CHLORIDE 20 MEQ in NACL 0.9% 1,000 ML IV SCH (21:32)
[2019-08-29 00:03] VITALS: BP_SYST 127
[2019-08-29] MEDS: LevALBUTEROL HCL 1.25 MG/0.5 ML *CONC.* VIAL.NEB (XOPENEX CONC.) INH SCH ×4 (01:00→20:07)
[2019-08-29] MEDS: INSULIN REGULAR, HUMAN 100 UNITS/ML, 10 ML VIAL (humuLIN R) SUBCUT PRN ×4 (01:20→17:15)
[2019-08-29] MEDS: PIPERACILLIN/TAZO 3.375/DEX-IS 50 ML IV SCH ×3 (06:38→21:27)
[2019-08-29] MEDS: metroNIDAZOLE 500 mg/NS 100 ML IV SCH ×3 (06:38→21:27)
[2019-08-29 07:51] LABS: CALCIUM 7.6 mg/dL (8.4-11.0); CREATININE 0.42 mg/dL (0.55-1.30); PHOSPHORUS 2.6 mg/dL (2.7-4.5); POTASSIUM 3.8 mmol/L (3.5-5.1)
[2019-08-29 07:53] VITALS: BP_SYST 133
[2019-08-29] MEDS ORDERED: MIDAZOLAM HCL 5 MG/5 ML VIAL ONE (08:33)
[2019-08-29] MEDS ORDERED: fentaNYL CITRATE/PF 100 MCG/2 ML AMP ONE (08:33)
[2019-08-29] MEDS ORDERED: SIMETHICONE 40 MG/0.6 ML ML ONE (08:33)
[2019-08-29] MEDS: POTASSIUM CHLORIDE 20 MEQ in NACL 0.9% 1,000 ML IV SCH ×2 (12:39→16:39)
[2019-08-29] MEDS: BALSAM PERU/CASTOR OIL 60 GM OINT...G. TP SCH (12:40)
[2019-08-29] MEDS: INSULIN GLARGINE 100 UNITS/ML 10 ML VIAL SQ SCH (12:46)
[2019-08-29] MEDS: ACETAMINOPHEN 650 MG SUPP.RECT RC PRN (12:48)
[2019-08-29 16:05] VITALS: BP_SYST 131
[2019-08-29 20:18] VITALS: BP_SYST 136
[2019-08-29] MEDS ORDERED: NA PHOS IV SCH ×20 (21:00)
[2019-08-29] MEDS ORDERED: SODIUM ACETATE IV SCH ×20 (21:00)
[2019-08-29] MEDS ORDERED: [UNRECOGNIZED DRUG - OTHER] IV SCH ×20 (21:00)
[2019-08-29] MEDS ORDERED: TPN CENTRAL IV SCH ×20 (21:00)
[2019-08-29] MEDS: NA PHOS IV SCH ×10 (21:28)
[2019-08-29] MEDS: SODIUM ACETATE IV SCH ×10 (21:28)
[2019-08-29] MEDS: [UNRECOGNIZED DRUG - OTHER] IV SCH ×10 (21:28)
[2019-08-29] MEDS: TPN CENTRAL IV SCH ×10 (21:28)
[2019-08-30] MEDS: INSULIN REGULAR, HUMAN 100 UNITS/ML, 10 ML VIAL (humuLIN R) SUBCUT PRN ×4 (00:22→17:50)
[2019-08-30] MEDS: LevALBUTEROL HCL 1.25 MG/0.5 ML *CONC.* VIAL.NEB (XOPENEX CONC.) INH SCH ×4 (01:01→20:23)
[2019-08-30 01:49] VITALS: BP_SYST 158
[2019-08-30] MEDS: PIPERACILLIN/TAZO 3.375/DEX-IS 50 ML IV SCH ×3 (05:58→20:53)
[2019-08-30] MEDS: metroNIDAZOLE 500 mg/NS 100 ML IV SCH ×3 (05:58→20:52)
[2019-08-30 06:31] LABS: ALBUMIN 1.1 g/dL (3.4-4.8); CALCIUM 7.7 mg/dL (8.4-11.0); CREATININE 0.36 mg/dL (0.55-1.30); PHOSPHORUS 2.7 mg/dL (2.7-4.5); POTASSIUM 3.5 mmol/L (3.5-5.1); TOTAL BILIRUBIN 0.1 mg/dL (0.0-1.0)
[2019-08-30 08:00] VITALS: BP_SYST 130
[2019-08-30] MEDS: BALSAM PERU/CASTOR OIL 60 GM OINT...G. TP SCH (08:43)
[2019-08-30] MEDS: INSULIN GLARGINE 100 UNITS/ML 10 ML VIAL SQ SCH (08:46)
[2019-08-30] MEDS: POTASSIUM CHLORIDE 20 MEQ in NACL 0.9% 1,000 ML IV SCH (10:57)
[2019-08-30 12:29] VITALS: BP_SYST 124
[2019-08-30 16:36] VITALS: BP_SYST 121
[2019-08-30 20:00] VITALS: BP_SYST 111
[2019-08-30] MEDS: NA PHOS IV SCH ×10 (20:54)
[2019-08-30] MEDS: TPN CENTRAL IV SCH ×10 (20:54)
[2019-08-30] MEDS: SODIUM ACETATE IV SCH ×10 (20:54)
[2019-08-30] MEDS: [UNRECOGNIZED DRUG - OTHER] IV SCH ×10 (20:54)
[2019-08-30] MEDS ORDERED: SODIUM ACETATE IV SCH ×19 (21:00)
[2019-08-30] MEDS ORDERED: MAGNESIUM SULFATE IV SCH ×9 (21:00)
[2019-08-30] MEDS ORDERED: [UNRECOGNIZED DRUG - OTHER] IV SCH ×9 (21:00)
[2019-08-30] MEDS ORDERED: TPN CENTRAL IV SCH ×19 (21:00)
[2019-08-30] MEDS ORDERED: [UNRECOGNIZED DRUG - OTHER] IV SCH ×10 (21:00)
[2019-08-30] MEDS ORDERED: NA PHOS IV SCH ×19 (21:00)
[2019-08-31 00:18] VITALS: BP_SYST 138
[2019-08-31] MEDS: LevALBUTEROL HCL 1.25 MG/0.5 ML *CONC.* VIAL.NEB (XOPENEX CONC.) INH SCH ×4 (02:22→19:00)
[2019-08-31] MEDS: POTASSIUM CHLORIDE 20 MEQ in NACL 0.9% 1,000 ML IV SCH ×2 (03:22→18:10)
[2019-08-31] MEDS: INSULIN REGULAR, HUMAN 100 UNITS/ML, 10 ML VIAL (humuLIN R) SUBCUT PRN ×5 (03:28→22:11)
[2019-08-31] MEDS: PIPERACILLIN/TAZO 3.375/DEX-IS 50 ML IV SCH ×3 (05:14→21:57)
[2019-08-31] MEDS: metroNIDAZOLE 500 mg/NS 100 ML IV SCH ×3 (05:15→21:57)
[2019-08-31 08:00] VITALS: BP_SYST 132
[2019-08-31 09:28] LABS: BASOPHILS % (AUTO) 0.1 % (0.0-2.0); EOSINOPHILS # (AUTO) 0.1 K/uL (0.0-0.4); EOSINOPHILS % (AUTO) 1.1 % (0.0-4.0); HEMATOCRIT 29.3 % (36-48); HEMOGLOBIN 9.6 g/dL (12.0-16.0); LYMPHOCYTES # (AUTO) 1.1 K/uL (1.0-5.5); LYMPHOCYTES % (AUTO) 18.4 % (20.5-51.5); MEAN CORPUSCULAR HEMOGLOBIN 31 pg (27-31); MEAN CORPUSCULAR HGB CONC 33 % (32-36); MEAN CORPUSCULAR VOLUME 96 fL (79.0-98.0); MONOCYTES # (AUTO) 0.4 K/uL (0.0-1.0); MONOCYTES % (AUTO) 6.8 % (1.7-9.3); NEUTROPHILS # (AUTO) 4.5 K/uL (1.8-7.7); NEUTROPHILS % (AUTO) 73.6 % (40.0-70.0); PLATELET COUNT (AUTO) 179 K/uL (130-430); RED BLOOD CELL COUNT(AUTO) 3.05 MIL/uL (4.2-6.2); RED CELL DISTRIBUTION WIDTH 17.8 % (9.0-15.0); WHITE BLOOD COUNT (AUTO) 6.1 K/uL (4.8-10.8)
[2019-08-31 09:32] LABS: CREATININE 0.41 mg/dL (0.55-1.30); PHOSPHORUS 2.7 mg/dL (2.7-4.5); POTASSIUM 3.7 mmol/L (3.5-5.1)
[2019-08-31] MEDS: INSULIN GLARGINE 100 UNITS/ML 10 ML VIAL SQ SCH (09:34)
[2019-08-31] MEDS: BALSAM PERU/CASTOR OIL 60 GM OINT...G. TP SCH (09:35)
[2019-08-31 11:39] LABS: INR 1.2 (0.8-1.2); PROTHROMBIN TIME 12.4 SECS (9.5-12.5)
[2019-08-31 12:30] VITALS: BP_SYST 130
[2019-08-31 17:16] VITALS: BP_SYST 112
[2019-08-31 20:00] VITALS: BP_SYST 110
[2019-08-31] MEDS ORDERED: ROCURONIUM BROMIDE 10 MG/ML (ZEMURON) ONE (20:45)
[2019-08-31] MEDS ORDERED: DESFLURANE 15 MIN GAS INH ONE (20:45)
[2019-08-31] MEDS ORDERED: ONDANSETRON HCL 4 MG/2 ML VIAL ONE (20:45)
[2019-08-31] MEDS ORDERED: CEFAZOLIN 2 GM IVPB PREMIX 50 ML IV ONE (20:45)
[2019-08-31] MEDS ORDERED: SUGAMMADEX SODIUM 200 MG/2 ML VIAL IV ONE (20:45)
[2019-08-31] MEDS ORDERED: PROPOFOL 200MG/ 20ML VIAL (DIPRIVAN) IV ONE (20:45)
[2019-08-31] MEDS ORDERED: fentaNYL CITRATE/PF 100 MCG/2 ML AMP ONE (20:45)
[2019-08-31] MEDS ORDERED: LR 1,000 ML IV.SOLN IV ONE (20:45)
[2019-08-31] MEDS ORDERED: NS IRRIG SOLN 1000 ML IR ONE (20:45)
[2019-08-31] MEDS ORDERED: DEXAMETHASONE SOD PHOSPHATE 4 MG/ML VIAL ONE (20:45)
[2019-08-31] MEDS ORDERED: LR 1,000 ML IV SCH (20:49)
[2019-09-01 00:53] VITALS: BP_SYST 137
[2019-09-01] MEDS: LevALBUTEROL HCL 1.25 MG/0.5 ML *CONC.* VIAL.NEB (XOPENEX CONC.) INH SCH ×4 (01:19→20:31)
[2019-09-01] MEDS: PIPERACILLIN/TAZO 3.375/DEX-IS 50 ML IV SCH ×3 (05:27→20:41)
[2019-09-01] MEDS: metroNIDAZOLE 500 mg/NS 100 ML IV SCH ×3 (05:27→20:40)
[2019-09-01] MEDS: INSULIN REGULAR, HUMAN 100 UNITS/ML, 10 ML VIAL (humuLIN R) SUBCUT PRN ×4 (05:32→20:51)
[2019-09-01 08:00] VITALS: BP_SYST 119
[2019-09-01] MEDS: BALSAM PERU/CASTOR OIL 60 GM OINT...G. TP SCH (08:34)
[2019-09-01] MEDS: INSULIN GLARGINE 100 UNITS/ML 10 ML VIAL SQ SCH (08:35)
[2019-09-01 13:17] VITALS: BP_SYST 120
[2019-09-01 16:12] VITALS: BP_SYST 111
[2019-09-02 01:08] VITALS: BP_SYST 115
[2019-09-02] MEDS: LevALBUTEROL HCL 1.25 MG/0.5 ML *CONC.* VIAL.NEB (XOPENEX CONC.) INH SCH ×4 (01:29→19:35)
[2019-09-02] MEDS: metroNIDAZOLE 500 mg/NS 100 ML IV SCH ×3 (05:50→20:43)
[2019-09-02] MEDS: PIPERACILLIN/TAZO 3.375/DEX-IS 50 ML IV SCH ×3 (05:52→20:43)
[2019-09-02] MEDS: INSULIN REGULAR, HUMAN 100 UNITS/ML, 10 ML VIAL (humuLIN R) SUBCUT PRN ×4 (06:03→20:51)
[2019-09-02] MEDS: INSULIN GLARGINE 100 UNITS/ML 10 ML VIAL SQ SCH (08:59)
[2019-09-02] MEDS: BALSAM PERU/CASTOR OIL 60 GM OINT...G. TP SCH (09:00)
[2019-09-02] MEDS ORDERED: DEXTROSE 50%-WATER 50 ML DISP.SYRIN IVP PRN (11:30)
[2019-09-02] MEDS ORDERED: GLUCOSE 15 GM GEL (in 37.5 GM TUBE) PO PRN (11:30)
[2019-09-02] MEDS ORDERED: D5W 1,000 ML IV PRN (11:30)
[2019-09-02 13:17] VITALS: BP_SYST 125
[2019-09-02 16:24] VITALS: BP_SYST 127
[2019-09-02 20:00] VITALS: BP_SYST 125
[2019-09-03 00:30] VITALS: BP_SYST 132
[2019-09-03] MEDS: LevALBUTEROL HCL 1.25 MG/0.5 ML *CONC.* VIAL.NEB (XOPENEX CONC.) INH SCH ×4 (02:19→20:00)
[2019-09-03] MEDS: metroNIDAZOLE 500 mg/NS 100 ML IV SCH ×3 (05:19→20:34)
[2019-09-03] MEDS: PIPERACILLIN/TAZO 3.375/DEX-IS 50 ML IV SCH ×3 (05:30→20:33)
[2019-09-03] MEDS: INSULIN REGULAR, HUMAN 100 UNITS/ML, 10 ML VIAL (humuLIN R) SUBCUT PRN ×4 (05:33→20:41)
[2019-09-03 06:16] LABS: CALCIUM 8.5 mg/dL (8.4-11.0); CREATININE 0.35 mg/dL (0.55-1.30); POTASSIUM 3.6 mmol/L (3.5-5.1)
[2019-09-03 06:53] LABS: BASOPHILS % (AUTO) 0.1 % (0.0-2.0); EOSINOPHILS # (AUTO) 0.2 K/uL (0.0-0.4); EOSINOPHILS % (AUTO) 2.3 % (0.0-4.0); HEMATOCRIT 30.6 % (36-48); HEMOGLOBIN 10.1 g/dL (12.0-16.0); MEAN CORPUSCULAR HEMOGLOBIN 32 pg (27-31); MEAN CORPUSCULAR HGB CONC 33 % (32-36); MEAN CORPUSCULAR VOLUME 96 fL (79.0-98.0); MONOCYTES # (AUTO) 0.4 K/uL (0.0-1.0); MONOCYTES % (AUTO) 5.6 % (1.7-9.3); NEUTROPHILS # (AUTO) 5.3 K/uL (1.8-7.7); PLATELET COUNT (AUTO) 221 K/uL (130-430); RED BLOOD CELL COUNT(AUTO) 3.18 MIL/uL (4.2-6.2); RED CELL DISTRIBUTION WIDTH 17.8 % (9.0-15.0); WHITE BLOOD COUNT (AUTO) 7.9 K/uL (4.8-10.8)
[2019-09-03 07:40] VITALS: BP_SYST 123
[2019-09-03] MEDS: BALSAM PERU/CASTOR OIL 60 GM OINT...G. TP SCH (08:06)
[2019-09-03] MEDS: INSULIN GLARGINE 100 UNITS/ML 10 ML VIAL SQ SCH (08:06)
[2019-09-03 12:13] VITALS: BP_SYST 123
[2019-09-03 13:53] VITALS: BP_SYST 123
[2019-09-03 16:52] VITALS: BP_SYST 119
[2019-09-04 00:03] VITALS: BP_SYST 128
[2019-09-04] MEDS: LevALBUTEROL HCL 1.25 MG/0.5 ML *CONC.* VIAL.NEB (XOPENEX CONC.) INH SCH ×4 (01:46→20:48)
[2019-09-04] MEDS: metroNIDAZOLE 500 mg/NS 100 ML IV SCH ×3 (05:44→21:12)
[2019-09-04] MEDS: PIPERACILLIN/TAZO 3.375/DEX-IS 50 ML IV SCH ×3 (05:45→21:13)
[2019-09-04 06:00] VITALS: BP_SYST 120
[2019-09-04 07:58] VITALS: BP_SYST 145
[2019-09-04] MEDS: BALSAM PERU/CASTOR OIL 60 GM OINT...G. TP SCH (09:00)
[2019-09-04] MEDS: INSULIN GLARGINE 100 UNITS/ML 10 ML VIAL SQ SCH (09:00)
[2019-09-04] MEDS: KCL 20 mEq in D5/0.45NS 1000mL 1,000 ML IV SCH (11:28)
[2019-09-04 12:00] VITALS: BP_SYST 135
[2019-09-04] MEDS ORDERED: NACL 0.9% 1,000 ML IV SCH (14:15)
[2019-09-04] MEDS ORDERED: ONDANSETRON HCL 4 MG/2 ML VIAL IVP PRN (14:15)
[2019-09-04] MEDS ORDERED: HYDROmorphone 1 MG INJ. 1 MG/ML AMPUL IVP PRN ×2 (14:15)
[2019-09-04 15:30] VITALS: BP_SYST 128
[2019-09-04 20:00] VITALS: BP_SYST 126
[2019-09-04] MEDS: INSULIN REGULAR, HUMAN 100 UNITS/ML, 10 ML VIAL (humuLIN R) SUBCUT PRN (21:22)
[2019-09-05] MEDS: KCL 20 mEq in D5/0.45NS 1000mL 1,000 ML IV SCH ×2 (00:08→13:28)
[2019-09-05 00:20] VITALS: BP_SYST 125
[2019-09-05] MEDS: LevALBUTEROL HCL 1.25 MG/0.5 ML *CONC.* VIAL.NEB (XOPENEX CONC.) INH SCH ×3 (04:55→19:39)
[2019-09-05] MEDS: PIPERACILLIN/TAZO 3.375/DEX-IS 50 ML IV SCH ×3 (05:29→20:37)
[2019-09-05] MEDS: metroNIDAZOLE 500 mg/NS 100 ML IV SCH ×3 (05:30→20:37)
[2019-09-05] MEDS: INSULIN REGULAR, HUMAN 100 UNITS/ML, 10 ML VIAL (humuLIN R) SUBCUT PRN ×4 (05:32→20:35)
[2019-09-05 08:00] VITALS: BP_SYST 130
[2019-09-05] MEDS: INSULIN GLARGINE 100 UNITS/ML 10 ML VIAL SQ SCH (09:24)
[2019-09-05] MEDS: BALSAM PERU/CASTOR OIL 60 GM OINT...G. TP SCH (09:26)
[2019-09-05 11:14] VITALS: BP_SYST 152
[2019-09-05 11:30] VITALS: BP_SYST 138
[2019-09-05 15:21] VITALS: BP_SYST 148
[2019-09-05 20:00] VITALS: BP_SYST 135
[2019-09-06] VITALS (7 sets, daily range): BP systolic 121–143
[2019-09-06] MEDS: LevALBUTEROL HCL 1.25 MG/0.5 ML *CONC.* VIAL.NEB (XOPENEX CONC.) INH SCH ×4 (00:57→18:53)
[2019-09-06] MEDS: KCL 20 mEq in D5/0.45NS 1000mL 1,000 ML IV SCH ×2 (02:48→23:30)
[2019-09-06] MEDS: PIPERACILLIN/TAZO 3.375/DEX-IS 50 ML IV SCH ×3 (05:44→22:27)
[2019-09-06] MEDS: metroNIDAZOLE 500 mg/NS 100 ML IV SCH ×3 (05:44→21:12)
[2019-09-06] MEDS: INSULIN REGULAR, HUMAN 100 UNITS/ML, 10 ML VIAL (humuLIN R) SUBCUT PRN ×4 (05:49→23:34)
[2019-09-06] MEDS: INSULIN GLARGINE 100 UNITS/ML 10 ML VIAL SQ SCH (08:34)
[2019-09-06] MEDS: BALSAM PERU/CASTOR OIL 60 GM OINT...G. TP SCH (08:38)
[2019-09-06 16:20] LABS: BILIRUBIN,URINE NEGATIVE (NEGATIVE); BLOOD, URINE NEGATIVE (NEGATIVE); CLARITY/URINE SL CLOUDY (CLEAR); COLOR,URINE YELLOW (YELLOW); GLUCOSE,URINE 3+ (NEGATIVE); KETONES,URINE NEGATIVE (NEGATIVE); LEUKOCYTE ESTERASE ,URINE 1+ (NEGATIVE); NITRITE, URINE NEGATIVE (NEGATIVE); PH,URINE 7.5 (5.0-8.0); PROTEIN URINE NEGATIVE (NEGATIVE); UROBILINOGEN,URINE 0.2 (0.2-1.0)
[2019-09-06 16:43] LABS: RBC,URINE 0-3 /HPF (0-3); WBC,URINE >100 /HPF (0-3)
[2019-09-06 16:44] LABS: BACTERIA,URINE RARE /HPF (None Seen); MUCUS,URINE None Seen /LPF (None Seen)
[2019-09-06 21:55] LABS: YEAST,URINE Moderate /HPF (None Seen)
[2019-09-07] MEDS: LevALBUTEROL HCL 1.25 MG/0.5 ML *CONC.* VIAL.NEB (XOPENEX CONC.) INH SCH ×2 (01:21→22:14)
[2019-09-07 03:33] VITALS: BP_SYST 134
[2019-09-07] MEDS: PIPERACILLIN/TAZO 3.375/DEX-IS 50 ML IV SCH ×3 (05:10→21:07)
[2019-09-07] MEDS: INSULIN REGULAR, HUMAN 100 UNITS/ML, 10 ML VIAL (humuLIN R) SUBCUT PRN ×4 (05:16→21:13)
[2019-09-07] MEDS: metroNIDAZOLE 500 mg/NS 100 ML IV SCH ×3 (05:54→21:08)
[2019-09-07 06:25] LABS: CREATININE 0.34 mg/dL (0.55-1.30); POTASSIUM 3.6 mmol/L (3.5-5.1)
[2019-09-07 06:42] LABS: EOSINOPHILS # (AUTO) 0.1 K/uL (0.0-0.4); HEMATOCRIT 29.6 % (36-48); HEMOGLOBIN 9.8 g/dL (12.0-16.0); LYMPHOCYTES # (AUTO) 1.3 K/uL (1.0-5.5); LYMPHOCYTES % (AUTO) 12.9 % (20.5-51.5); MEAN CORPUSCULAR HEMOGLOBIN 32 pg (27-31); MEAN CORPUSCULAR HGB CONC 33 % (32-36); MEAN CORPUSCULAR VOLUME 97 fL (79.0-98.0); MONOCYTES # (AUTO) 0.6 K/uL (0.0-1.0); MONOCYTES % (AUTO) 6.1 % (1.7-9.3); NEUTROPHILS # (AUTO) 7.8 K/uL (1.8-7.7); PLATELET COUNT (AUTO) 269 K/uL (130-430); RED BLOOD CELL COUNT(AUTO) 3.05 MIL/uL (4.2-6.2); RED CELL DISTRIBUTION WIDTH 18.7 % (9.0-15.0); WHITE BLOOD COUNT (AUTO) 9.7 K/uL (4.8-10.8)
[2019-09-07 07:50] VITALS: BP_SYST 124
[2019-09-07] MEDS: BALSAM PERU/CASTOR OIL 60 GM OINT...G. TP SCH (09:15)
[2019-09-07] MEDS: INSULIN GLARGINE 100 UNITS/ML 10 ML VIAL SQ SCH (09:16)
[2019-09-07 12:39] VITALS: BP_SYST 138
[2019-09-07] MEDS: KCL 20 mEq in D5/0.45NS 1000mL 1,000 ML IV SCH (16:02)
[2019-09-07 16:50] VITALS: BP_SYST 142
[2019-09-07 20:00] VITALS: BP_SYST 135
[2019-09-07 23:30] VITALS: BP_SYST 120
[2019-09-08] VITALS: BP_SYST 126
[2019-09-08] MEDS: KCL 20 mEq in D5/0.45NS 1000mL 1,000 ML IV SCH ×2 (02:40→13:47)
[2019-09-08 04:00] VITALS: BP_SYST 130
[2019-09-08] MEDS: metroNIDAZOLE 500 mg/NS 100 ML IV SCH ×3 (05:42→22:12)
[2019-09-08] MEDS: PIPERACILLIN/TAZO 3.375/DEX-IS 50 ML IV SCH ×3 (05:44→21:18)
[2019-09-08] MEDS: INSULIN REGULAR, HUMAN 100 UNITS/ML, 10 ML VIAL (humuLIN R) SUBCUT PRN ×3 (05:59→17:18)
[2019-09-08 08:08] VITALS: BP_SYST 108
[2019-09-08] MEDS: INSULIN GLARGINE 100 UNITS/ML 10 ML VIAL SQ SCH (08:41)
[2019-09-08] MEDS: BALSAM PERU/CASTOR OIL 60 GM OINT...G. TP SCH (08:42)
[2019-09-08 12:18] VITALS: BP_SYST 118
[2019-09-08] MEDS: LevALBUTEROL HCL 1.25 MG/0.5 ML *CONC.* VIAL.NEB (XOPENEX CONC.) INH SCH ×2 (13:37→20:50)
[2019-09-08 16:30] VITALS: BP_SYST 109
[2019-09-08 20:00] VITALS: BP_SYST 116
[2019-09-09 00:06] VITALS: BP_SYST 133
[2019-09-09] MEDS: INSULIN REGULAR, HUMAN 100 UNITS/ML, 10 ML VIAL (humuLIN R) SUBCUT PRN ×5 (00:13→23:35)
[2019-09-09] MEDS: LevALBUTEROL HCL 1.25 MG/0.5 ML *CONC.* VIAL.NEB (XOPENEX CONC.) INH SCH ×4 (01:43→20:40)
[2019-09-09] MEDS: PIPERACILLIN/TAZO 3.375/DEX-IS 50 ML IV SCH ×3 (05:11→21:28)
[2019-09-09] MEDS: KCL 20 mEq in D5/0.45NS 1000mL 1,000 ML IV SCH ×3 (05:11→21:28)
[2019-09-09] MEDS: metroNIDAZOLE 500 mg/NS 100 ML IV SCH ×3 (06:17→23:17)
[2019-09-09] MEDS: BALSAM PERU/CASTOR OIL 60 GM OINT...G. TP SCH (09:10)
[2019-09-09] MEDS: INSULIN GLARGINE 100 UNITS/ML 10 ML VIAL SQ SCH (09:57)
[2019-09-09 10:00] VITALS: BP_SYST 133
[2019-09-09 12:00] VITALS: BP_SYST 132
[2019-09-09 13:09] VITALS: BP_SYST 133
[2019-09-09 16:49] VITALS: BP_SYST 143
[2019-09-09 20:00] VITALS: BP_SYST 126
[2019-09-10] MEDS: LevALBUTEROL HCL 1.25 MG/0.5 ML *CONC.* VIAL.NEB (XOPENEX CONC.) INH SCH ×4 (00:35→20:01)
[2019-09-10 01:30] VITALS: BP_SYST 153
[2019-09-10] MEDS: PIPERACILLIN/TAZO 3.375/DEX-IS 50 ML IV SCH ×3 (05:50→20:48)
[2019-09-10] MEDS: INSULIN REGULAR, HUMAN 100 UNITS/ML, 10 ML VIAL (humuLIN R) SUBCUT PRN ×3 (06:10→17:03)
[2019-09-10] MEDS: metroNIDAZOLE 500 mg/NS 100 ML IV SCH ×3 (06:41→22:14)
[2019-09-10 08:07] VITALS: BP_SYST 117
[2019-09-10] MEDS: BALSAM PERU/CASTOR OIL 60 GM OINT...G. TP SCH (08:08)
[2019-09-10] MEDS: INSULIN GLARGINE 100 UNITS/ML 10 ML VIAL SQ SCH (08:25)
[2019-09-10 12:38] VITALS: BP_SYST 127
[2019-09-10] MEDS: KCL 20 mEq in D5/0.45NS 1000mL 1,000 ML IV SCH (13:08)
[2019-09-10 16:09] VITALS: BP_SYST 106
[2019-09-10 19:40] VITALS: BP_SYST 132
[2019-09-11] VITALS (8 sets, daily range): BP systolic 123–159
[2019-09-11] MEDS: INSULIN REGULAR, HUMAN 100 UNITS/ML, 10 ML VIAL (humuLIN R) SUBCUT PRN ×4 (00:19→17:57)
[2019-09-11] MEDS: LevALBUTEROL HCL 1.25 MG/0.5 ML *CONC.* VIAL.NEB (XOPENEX CONC.) INH SCH ×4 (02:09→19:50)
[2019-09-11] MEDS: KCL 20 mEq in D5/0.45NS 1000mL 1,000 ML IV SCH ×2 (05:22→17:51)
[2019-09-11] MEDS: BALSAM PERU/CASTOR OIL 60 GM OINT...G. TP SCH (09:00)
[2019-09-11] MEDS: INSULIN GLARGINE 100 UNITS/ML 10 ML VIAL SQ SCH (09:48)
[2019-09-12] MEDS: INSULIN REGULAR, HUMAN 100 UNITS/ML, 10 ML VIAL (humuLIN R) SUBCUT PRN ×3 (00:43→11:30)
[2019-09-12] MEDS: LevALBUTEROL HCL 1.25 MG/0.5 ML *CONC.* VIAL.NEB (XOPENEX CONC.) INH SCH ×3 (01:21→13:51)
[2019-09-12] MEDS: KCL 20 mEq in D5/0.45NS 1000mL 1,000 ML IV SCH (06:18)
[2019-09-12] MEDS: INSULIN GLARGINE 100 UNITS/ML 10 ML VIAL SQ SCH (08:49)
[2019-09-12 12:35] VITALS: BP_SYST 134
[2019-09-12 13:50] VITALS: BP_SYST 128
[2019-09-12 16:30] VITALS: BP_SYST 146
== END 2019-09-12 17:00 | DRG 329 ==
LOC: SED 09:36 → SMU 12:07 → STU 09-06 23:54
PROVIDERS: ADMIT Family Medicine; ATTEND Family Medicine
PROC: 02HV33Z Insertion of Infusion Device into Superior Vena Cava, Percutaneous Approach (ICD-10-PCS; 2019-08-28)
PROC: B548ZZA Ultrasonography of Superior Vena Cava, Guidance (ICD-10-PCS; 2019-08-28)
PROC: 0DH63UZ Insertion of Feeding Device into Stomach, Percutaneous Approach (ICD-10-PCS; 2019-08-29)
PROC: 0DB68ZX Excision of Stomach, Via Natural or Artificial Opening Endoscopic, Diagnostic (ICD-10-PCS; 2019-08-29)
PROC: 0D1N0Z4 Bypass Sigmoid Colon to Cutaneous, Open Approach (ICD-10-PCS; 2019-08-31)
PROC: 0QB10ZZ Excision of Sacrum, Open Approach (ICD-10-PCS; principal; 2019-09-04 12:30)
DX: K63.2 Fistula of intestine (principal); L89.154 Pressure ulcer of sacral region, stage 4; E43 Unspecified severe protein-calorie malnutrition; I69.359 Hemiplegia and hemiparesis following cerebral infarction affecting unspecified side; D64.9 Anemia, unspecified; E11.9 Type 2 diabetes mellitus without complications; E86.0 Dehydration; G30.9 Alzheimer's disease, unspecified; F02.80 Dementia in other diseases classified elsewhere, unspecified severity, without behavioral disturbance, psychotic disturbance, mood disturbance, and anxiety; E78.5 Hyperlipidemia, unspecified; Z87.81 Personal history of (healed) traumatic fracture; Z68.21 Body mass index [BMI] 21.0-21.9, adult; Z79.899 Other long term (current) drug therapy; Z88.8 Allergy status to other drugs, medicaments and biological substances
CPT/HCPCS: 36415; 43239; 43246; 71045; 74240-TC; 80048; 80053; 81000-TC; 82962; 83605; 83735-TC; 84100-TC; 84134; 84478-TC; 84484; 85025; 85610-TC; 85730-TC; 86710; 87040-TC; 87081; 87086; 88305; 88312; 88313; 93005; 94150; 94640; 94760; 99285; A4409; A5061; A6550; C1751; C1769; C9399; G0378; J0690; J1100; J1815; J2250; J2310; J2370; J2405; J2543; J2704; J2710; J3010; J3475; J3480; J3490; J7030; J7050; J7120; J7131; J7612; Q9963; Q9964; Q9967